=== PATIENT | male | born 1980 | race Caucasian/White ===

== ENCOUNTER 2018-09-07 06:09 | Emergency (ER) | payer OTHER ==
[~2018-09-07] VITALS: Ht 175.3 cm; Wt 95.2 kg
[~2018-09-07 06:09] MED LIST: ACETAMINOPHEN-1 EAC1 PO; CEPHALEXIN500 M1 PO; CYCLOBENZAPRINE10 MG PO; IBUPROFEN800 MG PO; NAPROSYN500 MG PO; NAPROXEN500 MG PO; NORCO 5-325 TA1 EACH PO; TRAMADOL HCL50 MG PO; TYLENOL325 MG PO
[2018-09-07] MEDS ORDERED: OMEPRAZOLE20 MG PO (09:15)
[2018-09-07] MEDS ORDERED: ONDANSETRON ODT8 MG PO (09:15)
== END 2018-09-07 09:24 | disposition home or self-care (01) ==
LOC: ED 06:09
DX: K29.70 Gastritis, unspecified, without bleeding (principal); K21.9 Gastro-esophageal reflux disease without esophagitis
CPT/HCPCS: 71046; 74177; 80053; 81001; 83690; 85025; 87502; 96361; 96374; 96375; 99284-25; J2405; J7030; Q9967

== ENCOUNTER 2018-11-10 10:34 | Emergency (ER) | payer OTHER ==
[~2018-11-10] VITALS: Ht 175.3 cm; Wt 97.5 kg
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
--- OUTSIDE RECORDS SUMMARY | ~2018-11-10 | XMS | Clinical Summary ---
Demographics + + + | Address | [address] | | | [place] [address] | + + + | Home Phone | | + + + | Preferred Language | Unknown | + + + | Marital Status | | + + + | Druze Affiliation | NRP | + + + | Race | White | + + + | Ethnic Group | Not or | + + + Author + + + | Author | [facility] | + + + | Organization | [facility] | + + + | Address | Unknown | + + + | Phone | Unavailable | + + + Support + + +---------+ + | Name | Relationship | Address | Phone | + + +---------+ + | Soledad Muñiz | ECON | , [place] | | + + +---------+ + Care Team Providers + +------+ + | Care Head Coach Name | Role | Phone | + +------+ + | Erich Morales | PP | | + +------+ + Source Comments ERICA is fully live on both [facility] and [facility] Allergies No Known Allergies Current [...] 12 Holes/100mm - | | Right: | [facility] | | | 244.12 | | [id number]: Qty: 1 on | | Foot | | | | / / | | 01/03/2012 by Thor Ho, | | | | | | | | MD | | | | | | | + +------+--------+ +--------+--------+--------+ | Screw Cortex 3.5 034mm - | | Right: | [facility] | | | 204.83 | | [id number]: Qty: 1 on | | Other | | | | 4 / / | | 01/03/2012 by Thor Ho, | | | | | | | | MD | | | | | | | + +------+--------+ +--------+--------+--------+ | Screw Cortex 2.7 Mm 36mm | | Right: | [facility] | | | 202.83 | | Self-Tapping - | | Other | | | | 6 / / | | [id number]: Qty: 1 on | | | | | | | | 01/03/2012 by Thor Ho, | | | | | | | | MD | | | | | | | + +------+--------+ +--------+--------+--------+ | Screw Cortex 2.7 Mm 40mm | | Right: | [facility] | | | 202.84 | | Self-Tapping - | | Other | | | | 0 / / | | [id number]: Qty: 1 on | | | | | | | | 01/03/2012 by Thor Ho, | | | | | | | | MD | | | | | | | + +------+--------+ +--------+--------+--------+ | Screw Cortex 2.7 Mm 50mm | | Right: | [facility] | | | 202.85 | | Self-Tapping - | | Other | | | | 0 / / | | [id number]: Qty: 1 on | | | | | | | | 01/03/2012 by Thor Ho, | | | | | | | | MD | | | | | | | + +------+--------+ +--------+--------+--------+ | Screw Cortex 2.4 X 26mm | | Right: | [facility] | | | 201.62 | | Self-Tap - [id number]: | | Foot | | | | [...] 3.5 018mm - | | Right: | [facility] | | | 204.81 | | [id number]: Qty: 1 on | | Other | | | | 8 / / | | 01/03/2012 by Thor Ho, | | | | | | | | | | | | | | | + +------+--------+ +--------+--------+--------+ | Screw Cortex 3.5 026mm - | | Right: | [facility] | | | 204.82 | | [id number]: Qty: 1 on | | Other | | | | 6 / / | | 01/03/2012 by Thor Ho, | | | | | | | | MD | | | | | | | + +------+--------+ +--------+--------+--------+ | Screw Cortex 3.5 032mm - | | Right: | [facility] | | | 204.83 | | [id number]: Qty: 1 on | | Other | | | | 2 / / | | 01/03/2012 by Thor Ho, | | | | | | | | MD | | | | | | | + +------+--------+ +--------+--------+--------+ | Screw Cortex 3.5 028mm - | | Right: | [facility] | | | 204.82 | | [id number]: Qty: 1 on | | Other | | | | 8 / | | 01/03/2012 by Thor Ho, | | | | | | | | MD | | | | | | | + +------+--------+ +--------+--------+--------+ | Screw Cortex 3.5 030mm - | | Right: | [facility] | | | 204.83 | | [id number]: Qty: 1 on | | Other | | | | 0 / / | | 01/03/2012 by Thor Ho, | | | | | | | | MD | | | | | | | + +------+--------+ +--------+--------+--------+ | Tisseel Frozen 4ml - | | Right: | [facility] | | 06/06/ | [id number] | | [id number]: Qty: 1 on | | Foot | [...] 3.5 034mm - | | Right: | [facility] | | | 204.83 | | [id number]: 01/03/2012 | | Other | | | | 4 / / | | by Thor Ho MD | | | | | | | | (Quantity not on | | | | | | | | file)Explanted: Qty: 1 | | | | | | | + +------+--------+ +--------+--------+--------+ | Screw Cortex 3.5 036mm - | | Right: | [facility] | | | 204.83 | | [id number]: 01/03/2012 | | Other | | | | 6 / / | | by Thor Ho MD | | | | | | | | (Quantity not on | | | | | | | | file)Explanted: Qty: 1 | | | | | | | + +------+--------+ +--------+--------+--------+ | Screw Cortex 2.7 20mm | | Right: | [facility] | | | 202.82 | | Self-Tapping - | | Other | | | | 0 / / | | [id number]: 01/03/2012 | | | | | | | | by Thor Ho MD | | | | | | | | (Quantity not on | | | | | | | | file)Explanted: Qty: 1 | | | | | | | + +------+--------+ +--------+--------+--------+ | Screw Cortex 2.7 Mm 26mm | | Right: | [facility] | | | 202.82 | | Self-Tapping - | | Other | | | | 6 / / | | [id number]: 01/03/2012 | | | | | | | | by Thor Ho MD | | | | | | | | (Quantity not on | | | | | | | | file)Explanted: Qty: 1 | | | | | | | + +------+--------+ +--------+--------+--------+ | Screw Cortex 2.7 Mm 34mm | | Right: | [facility] | | | 202.83 | | Self-Tapping - | | Other | | | | 4 / / | | [id number]: 01/03/2012 | | | | | | | | by Thor Ho MD | | | | | | | | (Quantity not on | | | | | | | | file)Explanted: Qty: 1 | | | | | | | + +------+--------+ +--------+--------+--------+ | Screw Cortex 3.5 018mm - | | Right: | [facility] | | | 204.81 | | [id number]: 01/03/2012 | | Other | | | [...] | | | + +--------+ +--------+-------+---------+ | RENEW[employer]ERGY [employer]ER MEDICAID | [employer] | xxxxxxxx | Medica | | | [...] | 1979 | [phone] | [place] [address] | | | eric | | | [address] | | + +--------+ +--------+ + + | RISHABH MUÑIZ | Third | Self | [birth year] | Home: | [address] | | [employer] [place] | | 1980 | [phone] | [place] [address] | | | [address] | | | [address] | | | | martha | | | | | + +--------+ +--------+ + +
[~2018-11-10 10:34] MED LIST changes: +OMEPRAZOLE20 MG PO; +ONDANSETRON ODT8 MG PO
[2018-11-10] MEDS ORDERED: NORCO 5-325 TA1 EACH PO (12:13)
== END 2018-11-10 12:40 | disposition home or self-care (01) ==
LOC: ED 10:34
DX: S29.9XXA Unspecified injury of thorax, initial encounter (principal); W50.0XXA Accidental hit or strike by another person, initial encounter; Y93.72 Activity, wrestling; Z88.7 Allergy status to serum and vaccine
CPT/HCPCS: 71046; 99283-25

== ENCOUNTER 2019-01-21 16:26 | Emergency (ER) | payer OTHER ==
[~2019-01-21] VITALS: Ht 175.3 cm; Wt 97.5 kg
[2019-01-21] MEDS ORDERED: LISINOPRIL-HCT1 EAC2 PO (16:41)
[2019-01-21] MEDS ORDERED: ESCITALOPRAM OX20 MG PO (16:42)
--- NOTE | 2019-01-22 16:10 | EKG ---
[facility] [address] [facility] [address] [place], [place] [address] Signed Sinus tachycardia Right bundle branch block Abnormal ECG No previous ECGs available Confirmed by BESSIE GALEANA DO ([id number]) on 01/22/2019 4:10:05 PM Electronically Signed By: BESSIE GALEANA DO 01/22/19 1610 PATIENT NAME: RISHABH CALVIN Electrocardiogram DATE OF : 76 PHYSICIAN: BESSIE GALEANA DO REPORT #: [id number] REPORT IS CONFIDENTIAL AND NOT TO BE RELEASED WITHOUT AUTHORIZATION
== END 2019-01-21 18:31 | disposition home or self-care (01) ==
LOC: ED 16:26
DX: R69 Illness, unspecified (principal); I10 Essential (primary) hypertension; Z88.7 Allergy status to serum and vaccine; Z79.899 Other long term (current) drug therapy
CPT/HCPCS: 71045; 80053; 83735; 84484; 85025; 93005; 93010; 96360; 99284-25; J7030

== ENCOUNTER 2019-07-17 17:43 | Emergency (ER) | payer OTHER ==
--- OUTSIDE RECORDS SUMMARY | ~2019-07-17 | XMS | Encounter Summary ---
Demographics + + + | Address | [address] | | | [place] [address] | + + + | Home Phone | | + + + | Preferred Language | Unknown | + + + | Marital Status | | + + + | Caodaism Affiliation | NRP | + + + | Race | White | + + + | Ethnic Group | Not or | + + + Author + + + | Author | [facility] | + + + | Organization | [facility] | + + + | Address | Unknown | + + + | Phone | Unavailable | + + + Support + + +---------+ + | Name | Relationship | Address | Phone | + + +---------+ + | Soledad Muñiz | ECON | , [place] | | + + +---------+ + Care Team Providers + +------+ + | Care Apprentice Name | Role | Phone | + +------+ + PCP | Unavailable | + +------+ + Reason for Visit + + + | Reason | Comments | + + + | Hand Injury | | + + + Encounter Details +--------+ + + + + | Date | Type | Department | Care Team | Description | +--------+ + + + + | 10/20/ | Emergency | [facility] Emergency | | | | 2010 | | Department [address] | | [address] | | | | | | [facility] | | | | | | [place], [place] | | | | | | [address] | | | | | | [phone] | | | +--------+ + + + + Social History + +-------+ +--------+------+ | Tobacco Use | Types | Packs/Day | Years | Date | | | | | Used | | + +-------+ +--------+------+ | Never Assessed | | | | | + +-------+ +--------+------+ + + + | Sex Assigned at | Date Recorded | | | | + + + | Not on file | | + + + + + + + | Job Start Date | Occupation | Industry | + + + + | Not on file | Not on file | Not on file | + + + + + + + + | Travel History | Travel Start | Travel End | + + + + + + | No recent travel history available. | + + documented as of this encounter Plan of Treatment Not on filedocumented as of this encounter Visit Diagnoses Not on filedocumented in this encounter"
--- OUTSIDE RECORDS SUMMARY | ~2019-07-17 | XMS | Encounter Summary ---
Demographics + + + | Address | [address] | | | [place] [address] | + + + | Home Phone | | + + + | Preferred Language | Unknown | + + + | Marital Status | | + + + | Scientology Affiliation | NRP | + + + | Race | White | + + + | Ethnic Group | Not or | + + + Author + + + | Author | [facility] | + + + | Organization | [facility] | + + + | Address | Unknown | + + + | Phone | Unavailable | + + + Support + + +---------+ + | Name | Relationship | Address | Phone | + + +---------+ + | Soledad Muñiz | ECON | , [place] | | + + +---------+ + Care Team Providers + +------+ + | Care Caustic Cresylate Shift Superintendent Name | Role | Phone | + +------+ + | No Pcp Per Patient | PCP | Unavailable | + +------+ + Reason for Visit AUTH/CERT (Routine) +--------+--------+ + + + + | Status | Reason | Specialty | Diagnoses / | Referred By | Referred To | | | | | Procedures | Contact | Contact | +--------+--------+ + + + + | Closed | | | | | | +--------+--------+ + + + + Encounter Details +--------+ + + + + | Date | Type | Department | Care Team | Description | +--------+ + + + + | 01/12/ | Anesthesia | 6A Intra Op 3181 | Savanah Hodge MD | | | 2011 | Event | [address] [facility] | [address] | | | | | [address] [facility] | [facility], | | | | | [facility] | [place] [address] | | | | | Desk Located on the | [phone] | | | | | 9th floor | | | | | | [place], [place] | [place], | | | | | [address] | [facility] [address] | | | | | | [address] | | | | | | [place], [place] | | | | | | [address] | | | | | | [phone] | | | | | | | | +--------+ + + + + Anesthesia Record + + + + + | Procedure Name | Responsible | Anesthesia Start | Anesthesia Stop Time | | | Anesthesiologist | Time | | + + + + + | SPLIT THICKNESS SKIN | Savanah Hodge MD | 01/13/12723 | 01/13/12921 | | GRAFT RIGHT THIGH | | | | | TO RIGHT FOOT (Right | | | | | Foot) | | | | + + + + + +----+---+ + + | Da | T | Event | Comment | | te | i | | | | | m | | | | | e | | | +----+---+ + + | 06 | 0 | Eq Check | Anesthesia machine checked Equipment verified | | /0 | 6 | | | | 8/ | 4 | | | | 20 | 8 | | | | 12 | | | | +----+---+ + + | | 0 | | | | | 7 | | | | | 2 | | | | | 4 | | | +----+---+ + + | | 0 | Pt. Check | Prior to anesthesia start, pt. Identified, examined, chart | | | 7 | | reviewed, PARQ held, anesthetic plan made or approved by | | | 2 | | attending anesthesiologist. NPO status confirmed as appropriate | | | 4 | | for procedure Preoperative evaluation: unchanged | +----+---+ + + | | 0 | An Start | | | | 7 | | | | | 2 | | | | | 4 | | | +----+---+ + + | | 0 | Preprocedur | Pt ID confirmed, informed consent obtained, insertion site | | | 7 | e Checklist | marked, equipment available | | | 2 | | | | | 4 | | | +----+---+ + + | | 0 | An Start | | | | 7 | Data | | | | 3 | | | | | 0 | | | +----+---+ + + | | 0 | Vitals | Monitors applied Vital signs checked | | | 7 | Checked | | | | 3 | | | | | 5 | | | +----+---+ + + | | 0 | Std. Airway | | | | 7 | Mgt. | | | | 4 | | | | | 0 | | | +----+---+ + + | | 0 | Ready | | | | 7 | | | | | 5 | | | | | 2 | | | +----+---+ + + | | 0 | Abx | | | | 7 | Administere | | | | 5 | d | | | | 2 | | | +----+---+ + + | | 0 | Incision | | | | 8 | | | | | 2 | | | | | 2 | | | +----+---+ + + | | 0 | Surgery end | | | | 9 | | | | | 1 | | | | | 1 | | | +----+---+ + + | | 0 | An Extubate | Neuromuscular function Intact. Pharynx suctioned. Patient obeys | | | 9 | | commands. Adequate pulmonary mechanics. | | | 1 | | | | | 1 | | | +----+---+ + + | | 0 | an stop | | | | 9 | data | | | | 1 | | | | | 5 | | | +----+---+ + + | | 0 | Anesthesia | | | | 9 | End | | | | 2 | | | | | 2 | | | +----+---+ + + +------+ | Meds | +------+ + + + | Name | Total | + + + | midazolam | 2 mg | + + + | propofol | 200 mg | + + + | lidocaine 2% | 40 mg | + + + | fentaNYL | 200 mcg | + + + | rocuronium | 50 mg | + + + | ceFAZolin | 1,000 mg | + + + | HYDROmorphone | 2 mg | + + + | ondansetron | 4 mg | + + + | neostigmine | 3 mg | + + + | glycopyrrolate | 0.4 mg | + + + | LR | 1,000 mL | + + + + + | Name | + + | Insp Jai | + + | Et Jai | + + | Insp Sevo | + + | Et Sevo | + + | EtN2O % | + + | Insp N2O % | + + | O2 Flow Rate (Total Liters) | + + | Air Flow rate (L/min) | + + + + | No blood administrations on file. | + + +--------+ + + + | Type | Details | Placement | Removal | +--------+ + + + | RETIRE | 01/13/12; Right Thigh Skin Graft | 01/13/12 0000 by | 01/13/12 1225 by | | D - | Donor Site; No; Right:, anterior; | France Rao, | Bebe Stinson RN | | Inc[facility] | thigh; 01/13/12; 1225 | RN | | | on | | | | +--------+ + + + | RETIRE | 01/13/12; 0555; 01/13/12; 1207; | 01/13/12 0555 by | 01/13/12 1207 by | | D - | 16; Left; Wrist; Lidocaine; No; | Mariajose Terrazas | Natalia Jacobson, | | Periph | Positive | | RN | | eral | | | | | Line | | | | +--------+ + + + | RETIRE | 01/13/12; 0858; Right Foot; Yes; | 01/13/12 0858 by | 01/13/12 1225 by | | D - | Right:, anterior; foot; 01/13/12; | France Rao, | Bebe Stinson RN | | Incisi | 1225 | RN | | | on | | | | +--------+ + + + documented in this encounter Social History + +-------+ +--------+ + | Tobacco Use | Types | Packs/Day | Years | Date | | | | | Used | | + +-------+ +--------+ + | Former Smoker | | | | Quit: 01/13/2000 | + +-------+ +--------+ + + +---+---+ + | Smokeless Tobacco: | | | Quit: | | Former User | | | 01/13/20 | | | | | 00 | + +---+---+ + + + +---------+ + | Alcohol Use | Drinks/Week | oz/Week | Comments | + + +---------+ + | No | | | monthly | + + +---------+ + + + + | Sex Assigned at [...] Visit Diagnoses Not on filedocumented in this encounter Administered Medications + +--------+ + +------+------+ | Medication Order | MAR | Action | Dose | Rate | Site | | | Action | Date | | | | + +--------+ + +------+------+ | ceFAZolin (aka ANCEF) injection | Given | 01/13/20 | 1,000 mg | | | | intravenous, INTRAPROCEDURE | | 12 7:52 | | | | | PRN, Starting 01/13/12 at 0752, | | AM PDT | | | | | Until Mon01/13/12 at 0915 | | | | | | + +--------+ + +------+------+ +---+---+ | | | +---+---+ + +-------+ +--------+---+---+ | fentaNYL citrate (PF) (aka | Given | 01/13/20 | 50 mcg | | | | SUBLIMAZE) injection | | 12 9:00 | | | | | INTRAPROCEDURE PRN, Starting Fri | | AM PDT | | | | | 6/8/12 at 0740, Until Mon01/13/12 | | | | | | | at 0915, sedation | | | | | | + +-------+ +--------+---+---+ +-------+ +---------+---+---+ | Given | 01/13/20 | 150 mcg | | | | | 12 7:40 | | | | | | AM PDT | | | | +-------+ +---------+---+---+ +---+---+ | | | +---+---+ + +-------+ +--------+---+---+ | glycopyrrolate (ml ORTIZ) | Given | 01/13/20 | 0.4 mg | | | | injection INTRAPROCEDURE PRN, | | 12 8:53 | | | | | Starting Mon01/13/12 at 0853, | | AM PDT | | | | | Until Mon01/13/12 at 0915 | | | | | | + +-------+ +--------+---+---+ +---+---+ | | | +---+---+ + +-------+ +------+---+---+ | HYDROmorphone (aka DILAUDID) | Given | 01/13/20 | 2 mg | | | | injection INTRAPROCEDURE PRN, | | 12 8:22 | | | | | Starting Mon01/13/12 at 0822, | | AM PDT | | | | | Until Mon01/13/12 at 914, | | | | | | | sedation | | | | | | + +-------+ +------+---+---+ +---+---+ | | | +---+---+ + +---------+ +----+---+---+ | lactated ringers IV | New Bag | 01/13/20 | mL | | | | INTRAPROCEDURE CONTINUOUS PRN, | | 12 8:34 | | | | | Starting 01/13/12 at 0724, | | AM PDT | | | | | Until Mon01/13/12 at 914 | | | | | | + +---------+ +----+---+---+ +---------+ +----+---+---+ | New Bag | 01/13/20 | mL | | | | | 12 7:24 | | | | | | AM PDT | | | | +---------+ +----+---+---+ +---+---+ | | | +---+---+ + +-------+ +-------+---+---+ | lidocaine (aka XYLOCAINE MPF) | Given | 01/13/20 | 40 mg | | | | 20 mg/mL (2 %) injection | | 12 7:40 | | | | | INTRAPROCEDURE PRN, Starting Fri | | AM PDT | | | | | 01/13/12 at 0740, Until 01/13/12 | | | | | | | at 0915 | | | | | | + +-------+ +-------+---+---+ +---+---+ | | | +---+---+ + +-------+ +------+---+---+ | midazolam (aka VERSED) | Given | 01/13/20 | 2 mg | | | | injection INTRAPROCEDURE PRN, | | 12 7:25 | | | | | Starting 01/13/12 at 0725, | | AM PDT | | | | | Until 01/13/12 at 0915, | | | | | | | sedation | | | | | | + +-------+ +------+---+---+ +---+---+ | | | +---+---+ + +-------+ +------+---+---+ | neostigmine (aka PROSTIGMIN) | Given | 01/13/20 | 3 mg | | | | injection intravenous, | | 12 8:53 | | | | | INTRAPROCEDURE PRN, Starting Fri | | AM PDT | | | | | 01/13/12 at 0853, Until 01/13/12 | | | | | | | at 0915 | | | | | | + +-------+ +------+---+---+ +---+---+ | | | +---+---+ + +-------+ +------+---+---+ | ondansetron (aka ZOFRAN) | Given | 01/13/20 | 4 mg | | | | injection INTRAPROCEDURE PRN, | | 12 8:34 | | | | | Starting 01/13/12 at 0834, | | AM PDT | | | | | Until 01/13/12 at 0915 | | | | | | + +-------+ +------+---+---+ +---+---+ | | | +---+---+ + +-------+ +--------+---+---+ | propofol INTRAPROCEDURE PRN, | Given | 01/13/20 | 200 mg | | | | Starting 01/13/12 at 0736, | | 12 7:36 | | | | | Until Mon01/13/12 at 0915 | | AM PDT | | | | + +-------+ +--------+---+---+ +---+---+ | | | +---+---+ + +-------+ +-------+---+---+ | rocuronium (aka ZEMURON) | Given | 01/13/20 | 50 mg | | | | injection INTRAPROCEDURE PRN, | | 12 7:40 | | | | | Starting 01/13/12 at 0740, | | AM PDT | | | | | Until Mon01/13/12 at 0915, | | | | | | | Neuromuscular block | | | | | | + +-------+ +-------+---+---+ +---+---+ | | | +---+---+ documented in this encounter"
--- OUTSIDE RECORDS SUMMARY | ~2019-07-17 | XMS | Encounter Summary ---
Demographics + + + | Address | [address] | | | [place] [address] | + + + | Home Phone | | + + + | Preferred Language | Unknown | + + + | Marital Status | | + + + | Christian Affiliation | NRP | + + + | Race | White | + + + | Ethnic Group | Not or | + + + Author + + + | Author | [facility] | + + + | Organization | [facility] | + + + | Address | Unknown | + + + | Phone | Unavailable | + + + Support + + +---------+ + | Name | Relationship | Address | Phone | + + +---------+ + | Soledad Muñiz | ECON | , [place] | | + + +---------+ + Care Team Providers + +------+ + | Care Special Needs Nanny Name | Role | Phone | + +------+ + | Erich Morales | PCP | | + +------+ + Encounter Details +--------+ + + + + | Date | Type | Department | Care Team | Description | +--------+ + + + + | 08/30/ | Abstract | Infectious | [facility]on | | | 2012 | | [facility] | [place] | | | | | [address] | | | [address] | | | | | | Mailcode: [id number] | | | | | | [facility] | | | | | | [place], [place] | | | | | | [address] | | | | | | [phone] | | | +--------+ + + + + Social History + + + +--------+ + | Tobacco Use | Types | Packs/Day | Years | Date | | | | | Used | | + + + +--------+ + | Former Smoker | Cigarettes | 0.3 | 8 | Quit: 01/13/2000 | + + + +--------+ + + +------+---+ + | Smokeless Tobacco: | Chew | | Quit: | | Former User | | | 01/13/20 | | | | | 00 | + +------+---+ + + + +---------+ + | Alcohol Use | Drinks/Week | oz/Week | Comments | + + +---------+ + | No | | 0.0 | jeanette for quit somtime | | | | | per pt. | + + +---------+ + + + [...] Not on filedocumented as of this encounter Procedures + +--------+ + + + | Procedure Name | Priori | Date/Time | Associated Diagnosis | Comments | | | ty | | | | + +--------+ + + + | C-REACTIVE PROTEIN | Routin | 08/29/2012 | | Results for this | | | e | 9:10 AM | | procedure are in the | | | | PST | | results section. | + +--------+ + + + documented in this encounter Results C-REACT PRTN (FOR INFLAMMATION) (08/29/2012 9:10 AM PST) + +-------+ + + + | Component | Value | Ref Range | Performed | Pathologist | | | | | At | Signature | + +-------+ + + + | C-REACTIVE | <5 | mg/dl | NON [facility] | | | PROTEIN | | | LAB | | + +-------+ + + + + + | Specimen | + + | Blood - Blood | + + + +---------+ + + | Performing | Address | City/State/Zipcode | Phone Number | | Organization | | | | + +---------+ + + | NON [facility] | | | | + +---------+ + + documented in this encounter Visit Diagnoses Not on filedocumented in this encounter"
--- OUTSIDE RECORDS SUMMARY | ~2019-07-17 | XMS | Encounter Summary ---
Demographics + + + | Address | [address] | | | [place] [address] | + + + | Home Phone | | + + + | Preferred Language | Unknown | + + + | Marital Status | | + + + | Jain Affiliation | NRP | + + + | Race | White | + + + | Ethnic Group | Not or | + + + Author + + + | Author | [facility] | + + + | Organization | [facility] | + + + | Address | Unknown | + + + | Phone | Unavailable | + + + Support + + +---------+ + | Name | Relationship | Address | Phone | + + +---------+ + | Soledad Muñiz | ECON | , [place] | | + + +---------+ + Care Team Providers + +------+ + | Care Payroll Auditor Name | Role | Phone | + +------+ + | Erich Morales | PCP | | + +------+ + Reason for Visit + + + | Reason | Comments | + + + | Medication | | | management | | + + + Encounter Details +--------+ + + + + | Date | Type | Department | Care Team | Description | +--------+ + + + + | 08/31/ | Patient Safety Sitter | Infectious | Hillary Harmon | | | 2012 | | [facility] | [place] | | | | | Floor [address] | | | | [address] | | | | | | Mailcode: [id number] | | | | | | [facility] | | | | | | [place], [place] | | | | | | [address] | | | | | | [phone] | | | +--------+ + + + [...]
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
--- OUTSIDE RECORDS SUMMARY | ~2019-07-17 | XMS | Encounter Summary ---
Demographics + + + | Address | [address] | | | [place] [address] | + + + | Home Phone | | + + + | Preferred Language | Unknown | + + + | Marital Status | | + + + | Orthodox Affiliation | NRP | + + + | Race | White | + + + | Ethnic Group | Not or | + + + Author + + + | Author | [facility] | + + + | Organization | [facility] | + + + | Address | Unknown | + + + | Phone | Unavailable | + + + Support + + +---------+ + | Name | Relationship | Address | Phone | + + +---------+ + | Soledad Muñiz | ECON | , [place] | | + + +---------+ + Care Team Providers + +------+ + | Care Senior Accounting Clerk Name | Role | Phone | + +------+ + | Erich Morales | PCP | | + +------+ + Encounter Details +--------+ + + + + | Date | Type | Department | Care Team | Description | +--------+ + + + + | 08/23/ | Abstract | Infectious | Hillary [facility] | | | 2012 | | [facility] | [place] | | | | | Floor [address] | [address] | | | | | | Mailcode: [id number] | | | | | | [facility] | | | | | | [place], [place] | | | | | | [address] | | | | | | [phone] | | | +--------+ + + + [...] | + +--------+ + + + | VANCOMYCIN, TROUGH | Routin | 08/22/2012 | | Results for this | | | e | | | procedure are in the | | | | | | results section. | + +--------+ + + + documented in this encounter Results VANCOMYCIN, TROUGH (08/22/2012) + +-------+ + + + | Component | Value | Ref Range | Performed | Pathologist | | | | | At | Signature | + +-------+ + + + | VANCOMYCIN, | 13.7 | ug/mL | NON [facility] | | | TROUGH | | | LAB | | + [...]
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
--- OUTSIDE RECORDS SUMMARY | ~2019-07-17 | XMS | Encounter Summary ---
Demographics + + + | Address | [address] | | | [place] [address] | + + + | Home Phone | | + + + | Preferred Language | Unknown | + + + | Marital Status | | + + + | Gnosticist Affiliation | NRP | + + + [...] Team Providers + +------+ + | Care Oral Surgery Assistant Name | Role | Phone | + +------+ + | Erich Morales | PCP | | + +------+ + Encounter Details +--------+ + + + + | Date | Type | Department | Care Team | Description | +--------+ + + + + | 08/09/ | Abstract | Infectious | [facility] | | | 2012 | | [facility] | [place] | | | | | Floor [address] | [address] | | | | | | Mailcode: [id number] | | | | | | [facility] | | | | | | [place], [place] | | | | | | [address] | | | | | | [phone] | | | +--------+ + + + [...] | + +--------+ + + + | COMPLETE METABOLIC | Routin | 08/08/2012 | | Results for this | | SET | e | | | procedure are in the | | (NA,K,CL,CO2,BUN,CRE | | | | results section. | | AT,GLUC,CA,AST,ALT,B | | | | | | ROBIN TOTAL,ALK | | | | | | PHOS,ALB,PROT TOTAL) | | | | | + +--------+ + + + documented in this encounter Results COMPLETE METABOLIC SET (NA,K,CL,CO2,BUN,CREAT,GLUC,CA,AST,ALT,BILI TOTAL,ALK PHOS,ALB,PROT TOTAL) (08/08/2012) + +-------+ + + + | Component | Value | Ref Range | Performed | Pathologist | | | | | At | Signature | + +-------+ + + + | GLUCOSE, | 99 | 65 - 110 mg/dL | NON [facility] | | | PLASMA | | | LAB | | | (LAB) | | | | | + +-------+ + + + | BUN, PLASMA | 10 | mg/dL | NON [facility] | | | (LAB) | | | LAB | | + +-------+ + + + | CREATININE | 0.81 | mg/dL | NON [facility] | | | PLASMA | | | LAB | | | (LAB) | | | | | + +-------+ + + + | TOTAL | 7.1 | g/dL | NON [facility] | | | PROTEIN, | | | LAB | | | PLASMA | | | | | | (LAB) | | | | | + +-------+ + + + | ALBUMIN, | 4.8 | g/dL | NON [facility] | | | PLASMA | | | LAB | | | (LAB) | | | | | + +-------+ + + + | CALCIUM, | 9.3 | mg/dL | NON [facility] | | | PLASMA | | | LAB | | | (LAB) | | | | | + +-------+ + + + | BILIRUBIN | 0.3 | Transcutaneous | NON [facility] | | | TOTAL | | Bilirubinometer | LAB | | + +-------+ + + + | ALK PHOS | 55 | U/L | NON [facility] | | | | | | LAB | | + +-------+ + + + | AST(SGOT) | 24 | U/L | NON [facility] | | | | | | LAB | | + +-------+ + + + | SODIUM, | 138 | mmol/L | NON [facility] | | | PLASMA | | | LAB | | | (LAB) | | | | | + +-------+ + + + | POTASSIUM, | 4.1 | mmol/L | NON [facility] | | | PLASMA | | | LAB | | | (LAB) | | | | | + +-------+ + + + | CHLORIDE, | 105 | mmol/L | NON [facility] | | | PLASMA | | | LAB | | | (LAB) | | | | | + +-------+ + + + | TOTAL CO2, | 24 | mmol/L | NON [facility] | | | PLASMA | | | LAB | | | (LAB) | | | | | + +-------+ + + + | ALT (SGPT) | 38 | U/L | NON [facility] | | | | | | LAB | | + [...]
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
--- OUTSIDE RECORDS SUMMARY | ~2019-07-17 | XMS | Encounter Summary ---
Demographics + + + | Address | [address] | | | [place] [address] | + + + | Home Phone | | + + + | Preferred Language | Unknown | + + + | Marital Status | | + + + | Oriental Orthodox Affiliation | NRP | + + + | Race | White | + + + | Ethnic Group | Not or | + + + Author + + + | Author | [facility] | + + + | Organization | [facility] | + + + | Address | Unknown | + + + | Phone | Unavailable | + + + Support + + +---------+ + | Name | Relationship | Address | Phone | + + +---------+ + | Soledad Muñiz | ECON | , [place] | | + + +---------+ + Care Team Providers + +------+ + | Care Bread Stacker Name | Role | Phone | + [...] [facility] | | | | | | [place], [place] | | | | | | [address] | | | | | | [phone] | | | +--------+ + + + [...]
--- OUTSIDE RECORDS SUMMARY | ~2019-07-17 | XMS | Encounter Summary ---
Demographics + + + | Address | [address] | | | [place] [address] | + + + | Home Phone | | + + + | Preferred Language | Unknown | + + + | Marital Status | | + + + | Christianity Affiliation | NRP | + + + | Race | White | + + + | Ethnic Group | Not or | + + + Author + + + | Author | [facility] | + + + | Organization | [facility] | + + + | Address | Unknown | + + + | Phone | Unavailable | + + + Support + + +---------+ + | Name | Relationship | Address | Phone | + + +---------+ + | Soledad Muñiz | ECON | , [place] | | + + +---------+ + Care Team Providers + +------+ + | Care Rn Hemodialysis Charge Name | Role | Phone | + +------+ + PCP | Unavailable | + +------+ + Reason for Visit + + + | Reason | Comments | + + + | Eye examination | | + + + Encounter Details +--------+---------+ + + + | Date | Type | Department | Care Team | Description | +--------+---------+ + + + | 02/21/ | Office | [facility] | | Unspecified Disorder | | 2005 | Visit | [place] | | of Choroid | | | | Photography at | | | | | | [address] | | | | | | [place] | | | | | | Mailcode: [place] | | | | | | [place] [address] | | | | | | [phone] | | | +--------+---------+ + + + [...] + + documented as of this encounter Raghavendra Roman - 02/21/2006 4:18 PM Shireen Muñiz was seen in the [facility] [place] [facility] Department today, 02/21/2006, for May. documented in this encount er Plan of Treatment Not on filedocumented as of this encounter Visit Diagnoses + + | Diagnosis | + + | Unspecified disorder of choroid | + + documented in this encounter"
--- OUTSIDE RECORDS SUMMARY | ~2019-07-17 | XMS | Encounter Summary ---
Demographics + + + | Address | [address] | | | [place] [address] | + + + | Home Phone | | + + + | Preferred Language | Unknown | + + + | Marital Status | | + + + | Amish Affiliation | NRP | + + + | Race | White | + + + | Ethnic Group | Not or | + + + Author + + + | Author | [facility] | + + + | Organization | [facility] | + + + | Address | Unknown | + + + | Phone | Unavailable | + + + Support + + +---------+ + | Name | Relationship | Address | Phone | + + +---------+ + | Soledad Muñiz | ECON | , [place] | | + + +---------+ + Care Team Providers + +------+ + | Care Epic Manager Name | Role | Phone | + +------+ + PCP | Unavailable | + +------+ + Encounter Details +--------+ + + + + | Date | Type | Department | Care Team | Description | +--------+ + + + + | 09/11/ | Results | Emergency Medicine | Bowen aHckett, | | | 1996 | Only | [address] [facility] | MD Abiodun Gamboa | | | | | [address] | [facility] | | | | | [place], [place] | Counsel[address] | | | | | [address] | [address] [place], | | | | | | [place] [address] | | | | | | [phone] | | | | | | | [...] | + +--------+ + + + | US ABDOMEN COMPLETE | Urgent | 09/11/1996 | | Results for this | | | | 9:00 AM | | procedure are in the | | | | PST | | results section. | + +--------+ + + + documented in this encounter Results US ABDOMEN COMPLETE (09/11/1996 9:00 AM PST) + + + + + + | Component | Value | Ref Range | Performed | Pathologist | | | | | At | Signature | + + + + + + | US ABDOMEN | Radiologist 1: VALE, | | | | | COMPLETE | SWATHI BRIGHT, | | | | | | RISHABH | | | | | | | | | | | | | | | | | | ABDOMINAL | | | | | | ULTRASOUND: 09/11/96 at | | | | | | 0900 hrs Dictated: | | | | | | 09/11/96 FINDINGS: The | | | | | | liver, gallbladder, | | | | | | common bile duct, | | | | | | spleen, andvisualized | | | | | | portions of the pancreas | | | | | | are unremarkable. | | | | | | Both kidneysare mildly | | | | | | echogenic. No stones, | | | | | | masses or hydronephrosis | | | | | | are presentin either | | | | | | kidney. The right | | | | | | kidney has a length of | | | | | | 11.9 cm and theleft | | | | | | kidney has a length of | | | | | | 12 cm. IMPRESSION: | | | | | | Mildly echogenic kidneys | | | | | | consistent with medical | | | | | | renal disease. | | | | | | Therest of the exam is | | | | | | unremarkable. END OF | | | | | | IMPRESSION: | | | | + + + + + + + + | Specimen | + + | | + + + +---------+ + + | Performing | Address | City/State/Zipcode | Phone Number | | Organization | | | | + +---------+ + + | [facility] | | | | | RADIOLOGY | | | | + +---------+ + + documented in this encounter Visit Diagnoses Not on filedocumented in this encounter"
--- OUTSIDE RECORDS SUMMARY | ~2019-07-17 | XMS | Encounter Summary ---
Demographics + + + | Address | [address] | | | [place] [address] | + + + | Home Phone | | + + + | Preferred Language | Unknown | + + + | Marital Status | | + + + | Mandaeism Affiliation | NRP | + + + | Race | White | + + + | Ethnic Group | Not or | + + + Author + + + | Author | [facility] | + + + | Organization | [facility] | + + + | Address | Unknown | + + + | Phone | Unavailable | + + + Support + + +---------+ + | Name | Relationship | Address | Phone | + + +---------+ + | Soledad Muñiz | ECON | , [place] | | + + +---------+ + Care Team Providers + +------+ + | Care Power Hammer Operator Name | Role | Phone | + [...] | Sindhu | Beto Gillespie MD | [address] | | | | | wound of | [address] | | | | | right foot | Richy Lopez | Mailcode: | | | | | Procedures | [facility] | [facility] | | | | | PHYS DYS | [place], [place] | for Health | | | | | OCCUPATIONAL | [address] | and Healing, | | | | | THERAPY | Phone: | Building [address], | | | | | REFERRAL | [phone] | [address] | | | | | | Fax: | [place], [place] | | | | | | [phone] | [address] | | | | | | | Phone: | | | | | | | [phone] | | | | | | | Fax: | | | | | | | [phone] | +--------+--------+ + + + + Physical [...] | | | | | PHYSICAL | [place], [place] | for Health | | | | | THERAPY | [address] | and Healing, | | | | | REFERRAL | Phone: | Building [address], | | | | | | [phone] | [address] | | | | | | Fax: | [place], [place] | | | | | | [phone] | [address] | | | | | | | Phone: | | | | | | | [phone] | | | | | | | Fax: | | | | | | | [phone] | +--------+--------+ + + + + Reason [...] + + | 07/24/ | Hospital | [facility] [address] | Thor Ho MD | | | 2011 - | Encounter | [address] | | | | | | [place], | | | | 07/28/ | | [place] [address] | | | | 2011 | | [phone] | | | +--------+ + + + [...] might be different fro m the original. [facility] DEPARTMENT OF ORTHOPAEDICS & REHABILITATION INPATIENT HOSPITAL DISCHARGE SUMMARY & INTERDISCIPLINARY INSTRUCTIONS Patient: Jaron Muñiz CSN: [id number] Admission Date: 07/24/2012 Discharge Date: 07/28/2012 Attending Physician: Thor Ho MD PCP: Erich GRADY Service: [facility] Orthopaedics & Rehabilitation Diagnoses Principal Final Diagnosis: [...] they suspect your wound is infected. Call [facility] first at [phone]. Activity Partial weight-bearing: A small amount of weight may be supported by the affected leg. You r Physician / PT will tell you the amount allowed. Weight bearing through the heel only with CAM boot on for all oob activities. Destination: Destination: Home Condition on Discharge Stable Follow-Up Appointments ORTHOPEDICS OUTPATIENT CLINIC: Follow up in 2 weeks (or as previously scheduled). Call [phone] to confirm or schedule this appointment. PHYSICAL THERAPY: If you are discharged home from the hospital and do not have in-home the rapy, you will need to begin outpatient physical therapy as soon as possible. If you have an y questions regarding this, please call [phone]. PCP: As needed for any medical concerns [...] mg Oral Tablet Comments: Reason for Stopping: [facility] Orthopaedic Service Pain Policy At the 6-week [...] and ask for the orthopaedic surgery resident urban design consultant. Additional Post-Op Instructions / What to Expect [...] feel that you will need more, call [phone] during business hours in order to get [...] has been our pleasure. Beto Bell MD [facility] [place] Department of Orthopaedics & Rehabilitation [address] [place] [address] Mail Code: OP31 [facility] [address] [email or web address] Pager: [phone] documented in this enco unter Medications at [...] provider under separate cover. Anticipated OPAT Setting: [facility] [phone] ID/OPAT Clinic follow-up: OPAT clinic visit in 1-2 weeks after discharge in conjunction wit h [facility] Ortho Service. We will call to schedule this appointment after patient is discharged . Interdisciplinary Communication: Please notify OPAT clinic 24-48 hours prior to discharge b y calling [phone] (We need anticipated discharge date & where patient is going; i.e. name, ph one, and fax for home infusion vendor, penitentiary facility, or daily outpatient infusio n center providing outpatient antibiotic therapy services.) [facility] Department of Infectious Disease Outpatient IV Antibiotic Therapy Clinic (OPAT) Pager ID: [phone] Mail Code F354 [place] [address] OPAT teaching note: Education and training for patient self management with a PICC line and extended use IV antibiotics I received an OPAT Clinic Consult from the Inpatient Infectious Diseases Service. I have re viewed the records and introduced myself to Jaron Muñiz today. I explained that I am from the OPAT (Outpatient Parenteral Antibiotic Treatment) team, an out-patient branch of [facility] Infectious Diseases team that has been [...] symptoms immediately, and if unable to contact [facility] or the [facility] ion service provider, then to present to the nearest ED. I verified that the patient has a primary care provider, and that they will follow-up with them following this hospitalization in regards to other medical issues such as chronic pain, diabetes, or high blood pressure for which we do not provide any care. I provided the patient with the [facility] welcome letter that reiterates the above teaching. I spent 25 minutes in education and training in patient self management for IV antibiotic a nd PICC line use with greater than 50% spent on counseling and/or coordination of care. [facility] DEPARTMENT: IDC INFECT DIS CONSULT - [id number] Place of Service: Inpatient Date of Service: 07/27/2012 CSN: [id number] Suggested Modifier: [facility] Suggested Level of Care: 37756- Subsequent hosp care, 25 min Beto Moses [...] with the above documentation. Thor Ho MD Emergency Operator Orthopaedic Trauma [facility] Department of Orthopaedics Beto Moses MD - [...] discharge: Pending clinical course. Beto Bell MD [facility] Department of Orthopaedics & Rehabilitation [address] [place] [address] Mail Code: OP31 [place] [address] [email or web address] Pager: [phone] documented in this en counter Plan of [...] Thor Ho MD - 08/11/2012 8:45 AM [facility] ORTHOPAEDIC OPERATIVE REPORT | | Jaron Muñiz [id number] | | | | Date: 07/24/2012 | | | | Attending Surgeon: Thor Ho M.D. | | | | Computed Tomography Technician(s): Harinder Abad M.D. | | | | [...] to follow up, as he was in [place], [place], and reports a 2- to 3-month [...] in the Orthopedic Trauma Clinic at the [facility] | | location in 2 weeks' time [...] | [facility] | [address] | [place] [address] | | | SERVICES, CORE | PARK [...] | + + + + + | [facility] | [address] | [place] [address] | | | SERVICES, CORE | PARK [...] + + + + + | [facility] | [address] | [place] [address] | | | SERVICES, CORE | GARRET [...] + | [facility] - | [address] | [place] [address] | | | [facility] | | | | + + + + + X-RAY PORTABLE CHEST 1 VIEW (07/27/2012 9:37 AM PST) + + + + + + | Component | Value | Ref Range | Performed | Pathologist | | | | | At | Signature | + + + + + + | X-RAY | STUDY:VT CHEST 1 VIEW | | | | [...] | + + + + + | [facility] | [address] | [place] [address] | | | ILIANA, CHRISTINA | PARK [...] [facility] | [address] | [place] [address] | | | SERVICES, CORE | PARK [...] [facility] | [address] | [place] [address] | | | SERVICES, CORE | PARK [...] + + + + + | [facility] | [address] | [place] [address] | | | SERVICES, CHRISTINA | GARRET [...] | | | | | signed / Ashutosh | | | | | | Paul [...] | + + + + + | [facility] - | [address] | [place] [address] | | | [place] | | | | + + + [...] | | | RESULT | | | [facility] - | | | | Final GRAM [...] + + + + | [facility] - | [address] | [place] [address] | | | [place] | | | [...] + | [facility] - | [address] | [place] [address] | | | [place] | | | [...] | + + + + + | [facility] - | [address] | [place] [address] | | | [place] | | | | + + + [...] + | [facility] - | [address] | [place] [address] | | | [place] | | | | + + + [...] [facility] | [address] | [place] [address] | | | SERVICES, | [address] [...] [facility] | [address] | [place] [address] | | | SERVICES, | [address] [...] [facility] | [address] | [place] [address] | | | SERVICES, CORE | PARK [...] + + + + + | [facility] | [address] | [place] [address] | | | SERVICES, CHRISTINA | GARRET [...]
--- OUTSIDE RECORDS SUMMARY | ~2019-07-17 | XMS | Encounter Summary ---
Demographics + + + | Address | [address] | | | [place] [address] | + + + | Home Phone | | + + + | Preferred Language | Unknown | + + + | Marital Status | | + + + | Religion Affiliation | NRP | + + + | Race | White | + + + | Ethnic Group | Not or | + + + Author + + + | Author | [facility] | + + + | Organization | [facility] | + + + | Address | Unknown | + + + | Phone | Unavailable | + + + Support + + +---------+ + | Name | Relationship | Address | Phone | + + +---------+ + | Soledad Muñiz | ECON | , [place] | | + + +---------+ + Care Team Providers + +------+ + | Care Black Leather Buffer Name | Role | Phone | + +------+ + | Erich Morales | PCP | | + +------+ + Encounter Details +--------+ + + + + | Date | Type | Department | Care Team | Description | +--------+ + + + + | 08/29/ | Abstract | Infectious | Hillary Harmon | | | 2012 | | Diseases at [facility] | [place] | | | | | Floor [address] | | [address] | | | | | | Mailcode: [id number] | | | | | | [facility] | | | | | | [place], [place] | | | | | | [address] | | | | | | [phone] | | | +--------+ + + + [...] + | CBC, WITH | Routin | 08/29/2012 | | Results for this | | DIFFERENTIAL | e | 9:10 AM | | procedure are in the | | | | PST | | results section. | + +--------+ + + + | COMPLETE METABOLIC | Routin | 08/29/2012 | | Results for this | | SET | e | 9:10 AM | | procedure are in the | | (NA,K,CL,CO2,BUN,CRE | | PST | | results section. | | AT,GLUC,CA,AST,ALT,B | | | | | | ROBIN TOTAL,ALK | | | | | | PHOS,ALB,PROT TOTAL) | | | | | + +--------+ + + + documented in this encounter Results CBC, WITH DIFFERENTIAL (08/29/2012 9:10 AM PST) + +-------+ + + + | Component | Value | Ref Range | Performed | Pathologist | | | | | At | Signature | + +-------+ + + + | WHITE CELL | 2.2 | K/cu mm | NON [facility] | | | COUNT | | | LAB | | + +-------+ + + + | RED CELL | 4.62 | M/cu mm | NON [facility] | | | COUNT | | | LAB | | + +-------+ + + + | HEMOGLOBIN | 14.3 | 13.5 - 17.5 | NON [facility] | | | | | g/dL | LAB | | + +-------+ + + + | HEMATOCRIT | 42.3 | % | NON [facility] | | | | | | LAB | | + +-------+ + + + | MCV | 91.7 | fL | NON [facility] | | | | | | LAB | | + +-------+ + + + | MCH | 31 | pg | NON [facility] | | | | | | LAB | | + +-------+ + + + | MCHC | 34 | g/dL | NON [facility] | | | | | | LAB | | + +-------+ + + + | PLATELET | 202 | K/cu mm | NON [facility] | | | COUNT | | | LAB | | + +-------+ + + + | NEUTROPHIL | 24 | % | NON [facility] | | | % | | | LAB | | + +-------+ + + + | LYMPHOCYTE | 46 | % | NON [facility] | | | % | | | LAB | | + +-------+ + + + | MONOCYTE % | 21 | % | NON [facility] | | | | | | LAB | | + +-------+ + + + | EOS % | 7 | % | [facility] | | | | | | LAB | | + +-------+ + + + | BASO % | 1 | % | NON [facility] | | | | | | LAB | | + +-------+ + + + | RDW | 12.8 | % | NON [facility] | | | | | | LAB | | + +-------+ + + + | MPV | | fL | NON [facility] | | | | | | LAB | | + +-------+ + + + | NEUTROPHIL | | K/cu mm | NON [facility] | | | # | | | LAB | | + +-------+ + + + | LYMPHOCYTE | | K/cu mm | NON [facility] | | | # | | | LAB | | + +-------+ + + + | MONOCYTE # | | K/cu mm | NON [facility] | | | | | | LAB | | + +-------+ + + + | EOS # | | K/cu mm | NON [facility] | | | | | | LAB | | + +-------+ + + + | BASO # | | | NON [facility] | | | | | | LAB | | + +-------+ + + + | ESR (SED | 2 | | NON [facility] | | | RATE) | | | LAB | | + +-------+ + + + + + | Specimen | + + | Blood - Blood | + + + +---------+ + + | Performing | Address | City/State/Zipcode | Phone Number | | Organization | | | | + +---------+ + + | NON [facility] | | | | + +---------+ + + COMPLETE METABOLIC SET (NA,K,CL,CO2,BUN,CREAT,GLUC,CA,AST,ALT,BILI TOTAL,ALK PHOS,ALB,PROT TOTAL) (08/29/2012 9:10 AM PST) + +-------+ + + + | Component | Value | Ref Range | Performed | Pathologist | | | | | At | Signature | + +-------+ + + + | GLUCOSE, | 86 | 65 - 110 mg/dL | NON [facility] | | | PLASMA | | | LAB | | | (LAB) | | | | | + +-------+ + + + | BUN, PLASMA | 12 | mg/dL | NON [facility] | | | (LAB) | | | LAB | | + +-------+ + + + | CREATININE | 0.88 | mg/dL | NON [facility] | | | PLASMA | | | LAB | | | (LAB) | | | | | + +-------+ + + + | TOTAL | 7.2 | g/dL | NON [facility] | | | PROTEIN, | | | LAB | | | PLASMA | | | | | | (LAB) | | | | | + +-------+ + + + | ALBUMIN, | 5 | g/dL | NON [facility] | | | PLASMA | | | LAB | | | (LAB) | | | | | + +-------+ + + + | CALCIUM, | 9.8 | mg/dL | NON [facility] | | | PLASMA | | | LAB | | | (LAB) | | | | | + +-------+ + + + | BILIRUBIN | 0.4 | Transcutaneous | NON [facility] | | | TOTAL | | Bilirubinometer | LAB | | + +-------+ + + + | ALK PHOS | 56 | U/L | NON [facility] | | | | | | LAB | | + +-------+ + + + | AST(SGOT) | 28 | U/L | NON [facility] | | | | | | LAB | | + +-------+ + + + | SODIUM, | 139 | mmol/L | NON [facility] | | | PLASMA | | | LAB | | | (LAB) | | | | | + +-------+ + + + | POTASSIUM, | 4.4 | mmol/L | NON [facility] | | | PLASMA | | | LAB | | | (LAB) | | | | | + +-------+ + + + | CHLORIDE, | 103 | mmol/L | NON [facility] | | | PLASMA | | | LAB | | | (LAB) | | | | | + +-------+ + + + | TOTAL CO2, | 29 | mmol/L | NON [facility] | | | PLASMA | | | LAB | | | (LAB) | | | | | + +-------+ + + + | ALT (SGPT) | 45 | U/L | NON [facility] | | | | | | LAB | | + +-------+ + + + | VANCOMYCIN, | 11.4 | ug/mL | NON [facility] | | [...]
--- OUTSIDE RECORDS SUMMARY | ~2019-07-17 | XMS | Encounter Summary ---
Demographics + + + | Address | [address] | | | [place] [address] | + + + | Home Phone | | + + + | Preferred Language | Unknown | + + + | Marital Status | | + + + | Taoism Affiliation | NRP | + + + | Race | White | + + + | Ethnic Group | Not or | + + + Author + + + | Author | [facility] | + + + | Organization | [facility] | + + + | Address | Unknown | + + + | Phone | Unavailable | + + + Support + + +---------+ + | Name | Relationship | Address | Phone | + + +---------+ + | Soledad Muñiz | ECON | , [place] | | + + +---------+ + Care Team Providers + +------+ + | Care Back Stayer Name | Role | Phone | + [...] [facility]ilion | | | | | | [place], [place] | | | | | | [address] | | | | | | [phone] | | | +--------+ + + + [...]
--- OUTSIDE RECORDS SUMMARY | ~2019-07-17 | XMS | Encounter Summary ---
Demographics + + + | Address | [address] | | | [place] [address] | + + + | Home Phone | | + + + | Preferred Language | Unknown | + + + | Marital Status | | + + + | Lutheran Affiliation | NRP | + + + | Race | White | + + + | Ethnic Group | Not or | + + + Author + + + | Author | [facility] | + + + | Organization | [facility] | + + + | Address | Unknown | + + + | Phone | Unavailable | + + + Support + + +---------+ + | Name | Relationship | Address | Phone | + + +---------+ + | Soledad Muñiz | ECON | , [place] | | + + +---------+ + Care Team Providers + +------+ + | Care Trimming Machine Operator Name | Role | Phone | + +------+ + | Tsering Mcdonald | PCP | | + +------+ + Reason for Visit + + + | Reason | Comments | + + + | Comprehensive eye | For about 4 months noticed vision was really bad in the left eye. | | examination | Has RP and has had cataract surgery, OU. | + + + Encounter Details +--------+---------+ + + + | Date | Type | Department | Care Team | Description | +--------+---------+ + + + | 01/26/ | Office | [facility] | Serina Tracy MD | After-cataract, | | 2010 | Visit | [place]/Ophthalmol | | obscuring vision | | | | ogy at [facility] [address] | | (Primary Dx) | | | | [address] Mailcode: | | | | | | [facility] | | | | | | Health and [facility], | | | | | | [facility] | | | | | | Floor [place], [place] | | | | | | [address] | | | | | | [phone] | | | +--------+---------+ + + + [...] Comments | + + +---------+ + | Not Asked | | | | + + +---------+ + + + [...] documented as of this encounter Progress Notes Gary Ball MD - 02/20/2011 11:31 AM PDTAttending Physician Statement: I reviewed chart notes under general supervision of resident, but did not personally examine this patient. Cosigning only. GARY BALL MD Director, Comprehensive Ophthalmology [facility] [place] [address] [facility], [address] [place] [address] Fax [phone] Lauren Solorzano - 01/06 11:12 AM PDT COMPREHENSIVE OPHTHALMOLOGY PROGRESS NOTE 01/26/2011 HPI: 30 y.o. year old male from [place] : Patient presents with: Comprehensive eye examination - For about 4 months noticed vision was really bad in the l eft eye. 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 Last seen by Dr. Dodson in 2005. Had yag capsulotomy OD on that visit. Moved to [place] af terwards. Has noticed gradually decreasing vision OS. Tobacco use: reports that he has quit smoking. He has quit using smokeless tobacco. [facility] Care Provider: SAM Pat Past ocular history: Ref Silas Englnadconcapri, OD, [place] Pseudophakia, PCO, right eye RP and Choreoretinal Scar--FA 02/09 Family ocular history: Family History: Allergies: has no known allergies. Medications: Current outpatient prescriptions Medication Sig cephALEXin (KEFLEX) 500 mg Oral Capsule Take 500 mg by mouth every six hours. HYDROcodone-acetaminophen (VICODIN) 5-500 mg Oral Tablet Take 1 Tab by mouth every six hours as needed. Not to exceed 8 tablets per any 24 hour period. 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 Reviewed systems for: fever, wt. loss, ENT, cardiovascular, pulmonary, GI, urinary, neurolo gic, endocrine, bleeding/blood disorders, AIDS/HIV, cancer/tumors, arthritis - all were nega tive except as noted above. EXAMINATION: Pain score: Visual acuity CC SC PH (SC/CC) Near cc Near sc Right eye 20/30 NI, Left eye 20/100 NI, Current glasses sphere cylinder axis VA Right eye +1.50 +0.25 82 20/30 Left eye +1.25 +0.75 20/100 Near add +2.50 / +2.50 Type: Bifocal. Comments: Manifest sphere cylinder axis VA Right eye MR AR +2.00 Sphere Left eye MR AR -0.25 +1.25 156 Near add MR / , KERATOMETRY: K1 @ K2 @ Right eye 45.75 40 46.50 130 Left eye 45.25 17 46.00 107 Pupils: PERRL Dark Bright React APD Right eye Left eye Comments: EOM: Full; Comments: CVF: OD: OS: Comments: BAT on medium: OD: OS: Comments: IOP CCT(pachy) Amsler Color OD OS IOP method: Drops for dilation: ILAUREN, performed, reviewed or revised the above history, medications, allergies, as well as performed elements noted in the Base Ophthalmology Exam, such as visual acuity, pupils, EOMs, CVF and IOP. Neuro/Psych: Mood/Affect: External Exam Right Eye Left Eye Normal Normal Comments: Slit Lamp Exam Right Eye Left Eye Lids Normal Normal Conjunctiva White and quiet White and quiet Cornea All layers clear All layers clear AC Deep and quiet Deep and quiet Iris Round and reactive Round and reactive Lens Centered posterior chamber intraocular lens with open posterior capsule Centered poste rior chamber intraocular lens with 3+ PCO Comments: Fundus Exam Right Eye Left Eye Vitreous Normal Normal Disc drusen and waxy pallor drusen and waxy pallor. C/D 0.1 0.1 Macula Normal no CME Normal no CME Vessels Normal Normal Periphery atrophy 360 and spicules. Inferiorly there is a finger like retinal elevation with corresponding scarred surface (stable compare d to prior description in 2005.) No retinal detachment. atrophy 360 spicules Comments: See [facility] Op[facility]mology Exam Module for additional exam information Fundus photograph report Shana Dodson Md 03/09/06 Stereo photographs of right fundus are reviewed. The quality of the pictures is good. The disc size is small. The cup appears to small but i t is ill-defined and the disc is diffusely pale. The peripapillary area shows nothing of not e. The maculae appears flat, featureless. The retinal blood vessels appear attenuated and th e background fundus is mottled and diffusely atrophic looking. There is a raised scarified a ppearing lesion inferotemporally. 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 in [place] , he did note this on his examination though didn't mention it in the referral letter he sen t to me. Retinitis pigmentosa. Impression: 1) Pseudophakic OU. S/p yag capsulotomy OD, doing well. OS with 3+ visually significant PCO. Very symptomatic with blurry vision and best corrected visual acuity of 20/100 OS. Co uld benefit from yag capsulotomy 2. Retinitis pigmentosa OU with disc drusen and constricted visual calderon when last checke d 3. Chorioretinal lesion OS - History of bungee cord injury of that part of eye, likely 2/2 to that. Prior Bscan Done by Dr. Dodson and studies agree with trauma, not neoplasm. Plan: Offered visit with Dr. Dotson or Klaus for RP, however pt declined. Tried to get approval for yag capsulotomy OS today, however need prior authorization. Since patient travels from the [facility] and it is difficult to get to [place] for h is appointments, will arrange for follow up in [facility] and hopefully pt can hav e yag capsulotomy same day. Serina Tracy MD Ophthalmology Resident [facility] Physician: Serina Tracy MD, 01/26/2011 documented in this encoun ter Plan of Treatment Not on filedocumented as of this encounter Visit Diagnoses + + | Diagnosis | + + | After-cataract, obscuring vision - Primary | + + documented in this encounter"
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
--- OUTSIDE RECORDS SUMMARY | ~2019-07-17 | XMS | Encounter Summary ---
Demographics + + + | Address | [address] | | | [place] [address] | + + + | Home Phone | | + + + | Preferred Language | Unknown | + + + | Marital Status | | + + + | Hinduism Affiliation | NRP | + + + | Race | White | + + + | Ethnic Group | Not or | + + + Author + + + | Author | [facility] | + + + | Organization | [facility] | + + + | Address | Unknown | + + + | Phone | Unavailable | + + + Support + + +---------+ + | Name | Relationship | Address | Phone | + + +---------+ + | Soledad Muñiz | ECON | , [place] | | + + +---------+ + Care Team Providers + +------+ + | Care Gas Station Cashier Name | Role | Phone | + [...] | +--------+ + + + + | 08/08/ | Labor Arbitrator | Infectious | Hillary Harmon | | | 2012 | | [facility] at [facility] | [place] | | | | | Floor [address] | | | | | [address] | | | | | | Mailcode: [id number] | | | | | | Phys[facility] [place] | | | | | | [place], [place] | | | | | | [address] | | | | | | [phone] | | | +--------+ + + + [...]
--- OUTSIDE RECORDS SUMMARY | ~2019-07-17 | XMS | Encounter Summary ---
Demographics + + + | Address | [address] | | | [place] [address] | + + + | Home Phone | | + + + | Preferred Language | Unknown | + + + | Marital Status | | + + + | Confucianism Affiliation | NRP | + + + [...] Team Providers + +------+ + | Care Collections Representative Name | Role | Phone | + [...] | | | | | | [address] [place], [place] | | | | | | [address] | | | | | | [phone] | | | +--------+ + + + [...] perfume, lotions or powder. Remove any nail st helenian from at least one fingernail. Do not [...] or walk. Surgery Check in Locations Admitting [facility] Surgery Check in Time: Someone from your surgeon's office or [facility] will provide you with information regarding your [...] it is after office hours, call the [facility] centralized traffic control operator at [phone] and ask them to page your doc tor. documented in this encounter Plan of Treatment Not on filedocumented as of this encounter Visit Diagnoses Not on filedocumented in this encounter"
--- OUTSIDE RECORDS SUMMARY | ~2019-07-17 | XMS | Encounter Summary ---
Demographics + + + | Address | [address] | | | [place] [address] | + + + | Home Phone | | + + + | Preferred Language | Unknown | + + + | Marital Status | | + + + | Orthodoxy Affiliation | NRP | + + + | Race | White | + + + | Ethnic Group | Not or | + + + Author + + + | Author | [facility] | + + + | Organization | [facility] | + + + | Address | Unknown | + + + | Phone | Unavailable | + + + Support + + +---------+ + | Name | Relationship | Address | Phone | + + +---------+ + | Soledad Muñiz | ECON | , [place] | | + + +---------+ + Care Team Providers + +------+ + | Care Corporate Director Of Human Resources Name | Role | Phone | + +------+ + PCP | Unavailable | + +------+ + Encounter Details +--------+ + + + + | Date | Type | Department | Care Team | Description | +--------+ + + + + | 05/25/ | Documentati | [facility] | Shana Dodson MD | | | 2005 | on | [address] | | | | | | [place] Mailcode: | | | | | | [place], [place] | | | | | | [address] | | | +--------+ + + + [...]
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
--- OUTSIDE RECORDS SUMMARY | ~2019-07-17 | XMS | Encounter Summary ---
Demographics + + + | Address | [address] | | | [place] [address] | + + + | Home Phone | | + + + | Preferred Language | Unknown | + + + | Marital Status | | + + + | Buddhism Affiliation | NRP | + + + | Race | White | + + + | Ethnic Group | Not or | + + + Author + + + | Author | [facility] | + + + | Organization | [facility] | + + + | Address | Unknown | + + + | Phone | Unavailable | + + + Support + + +---------+ + | Name | Relationship | Address | Phone | + + +---------+ + | Soledad Muñiz | ECON | , [place] | | + + +---------+ + Care Team Providers + +------+ + | Care Manager Proposal Name | Role | Phone | + [...] + + + + | 08/08/ | Retail Training Manager | Infectious | Hillary Harmon | | | 2012 | | [facility] | [place] | | | | | Floor [address] | | | | | | [address] | | | | | | Mailcode: [address] | | | | | | [facility] [place] | | | | | | [place], [place] | | | | | | [address] | | | | | | [phone] | | | +--------+ + + + [...]
--- OUTSIDE RECORDS SUMMARY | ~2019-07-17 | XMS | Encounter Summary ---
Demographics + + + | Address | [address] | | | [place] [address] | + + + | Home Phone | | + + + | Preferred Language | Unknown | + + + | Marital Status | | + + + | Lutheran Affiliation | NRP | + + + | Race | White | + + + | Ethnic Group | Not or | + + + Author + + + | Author | [facility] | + + + | Organization | [facility] | + + + | Address | Unknown | + + + | Phone | Unavailable | + + + Support + + +---------+ + | Name | Relationship | Address | Phone | + + +---------+ + | Soledad Muñiz | ECON | , [place] | | + + +---------+ + Care Team Providers + +------+ + | Care Ventilating Engineer Name | Role | Phone | + +------+ + | Erich Morales | PCP | | + +------+ + Reason for Visit AUTH/CERT +--------+--------+ + [...] + + + + | 07/24/ | Anesthesia | [address] Op [address] | Allyson Flores MD | | | 2011 | Event | [address] | [address] | | | | | [address] [facility] | [facility] | | | | | [facility] | [place] [address] | | | | | Desk Located on the | [phone] | | | | | 9th floor | | | | | | [place] [employer], [place] | | | | | | [address] | | | +--------+ + + + [...] 2 mg | + + + | fentaNYL | 500 mcg | + + + | propofol | 190 mg | + + + | pip-tazo 3.375g | 3.375 g | + + + | ceFAZolin | 1,000 mg | + + + | LR | 800 mL | + + + + + | Name | + + | Insp Sevo | + + | Et Sevo | + + | Insp N2O % [...] | Discharge | | on | questions.); 162 (Automatic | | | | | cleanup [...] ceFAZolin (aka ANCEF) injection | Given | 07/24/20 | 1,000 mg | | | | intravenous, INTRAPROCEDURE | | 12 3:13 | | | | | PRN, Starting 07/24/12 at | | PM PST | | | | | 1513, Until Mon07/24/12 at 1612 | | | | | | + +--------+ + +------+------+ +---+---+ | | | +---+---+ + +-------+ +--------+---+---+ | fentaNYL citrate (PF) (aka | Given | 1820 | 50 mcg | | | | SUBLIMAZE) injection | | 12 3:54 | | | | | INTRAPROCEDURE PRN, Starting Tue | | PM PST | | | | | 1812 at 1421, Until Tue | | | | | | | 12/18/12 at 1612, sedation | | | | | | + +-------+ +--------+---+---+ +-------+ +--------+---+---+ | Given | 1218/20 | 50 mcg | | | | | 12 3:52 | | | | | | PM PST | | | | +-------+ +--------+---+---+ | Given | 1218/20 | 50 mcg | | | | | 12 3:43 | | | | | | PM PST | | | | +-------+ +--------+---+---+ +---+---+ | | | +---+---+ + + + +----+---+---+ | lactated ringers IV | given by | 07/24/20 | mL | | | | INTRAPROCEDURE CONTINUOUS PRN, | | 12 4:00 | | | | | Starting 07/24/12 at 1410, | anesthes | PM PST | | | | | Until e 07/24/12 at 1612 | iology | | | | | + + + +----+---+---+ + + +----+---+---+ | given by anesthesiology | 07/24/20 | mL | | | | | 12 2:45 | | | | | | PM PST | | | | + + +----+---+---+ | New Bag | 07/24/20 | mL | | | | | 12 2:10 | | | | | | PM PST | | | | + + +----+---+---+ +---+---+ | | | +---+---+ + +-------+ +------+---+---+ | midazolam (aka VERSED) | Given | 07/24/20 | 2 mg | | | | injection INTRAPROCEDURE PRN, | | 12 2:12 | | | | | Starting 07/24/12 at 1412, | | PM PST | | | | | Until 07/24/12 at 1612, | | | | | | | sedation | | | | | | + +-------+ +------+---+---+ +---+---+ | | | +---+---+ + +-------+ +---------+---+---+ | piperacillin-tazobactam (aka | Given | 07/24/20 | 3.375 g | | | | ZOSYN) IV intravenous, | | 12 3:13 | | | | | INTRAPROCEDURE PRN, Starting Tue | | PM PST | | | | | 07/24/12 at 1513, Until Tue | | | | | | | 07/24/12 at 1612 | | | | | | + +-------+ +---------+---+---+ +---+---+ | | | +---+---+ + +-------+ +--------+---+---+ | propofol INTRAPROCEDURE PRN, | Given | 07/24/20 | 190 mg | | | | Starting 07/24/12 at 1423, | | 12 2:23 | | | | | Until 07/24/12 at 1612 | | PM PST | | | | + +-------+ +--------+---+---+ +---+---+ | | | +---+---+ documented in this encounter"
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
--- OUTSIDE RECORDS SUMMARY | ~2019-07-17 | XMS | Encounter Summary ---
Demographics + + + | Address | [address] | | | [place] [address] | + + + | Home Phone | | + + + | Preferred Language | Unknown | + + + | Marital Status | | + + + | Mormonism Affiliation | NRP | + + + | Race | White | + + + | Ethnic Group | Not or | + + + Author + + + | Author | [facility] | + + + | Organization | [facility] | + + + | Address | Unknown | + + + | Phone | Unavailable | + + + Support + + +---------+ + | Name | Relationship | Address | Phone | + + +---------+ + | Soledad Muñiz | ECON | , [place] | | + + +---------+ + Care Team Providers + +------+ + | Care Emergency Department Aide Name | Role | Phone | + [...] wound | Dept Hrc | MD [address] | | | | | of foot | [address] | | | | | except | [place] | [facility] | | | | | toe(s) | Rd [facility] | Rd [place], | | | | | alone, | Hospital | [place] | | | | | without | [place], [place] | [address] | | | | | mention of | [address] | | | | | | complication | Phone: | | | | | | Procedures | [phone] | | | | | | NC SPLIT | | | | | | [...] of | | 2011 | Visit | [facility] [address] | [place] [address] | right foot (Primary | | | | [address] | [address] | Dx) | | | | [address] | [place] [address] | | | | | [place], [place] | [phone] | | | | | [address] | | | | | | [phone] | | | +--------+---------+ + + + [...] might be different fro m the original. [facility] Date of Surgery: 01/13/2012 [...] crutches Skin graft looks healthy, 100% viable. Collins removed today. Donor site healthy. Foot- Incision [...] continue to wean PRN. Just moved to [place]. December e transferring pain management to local [...] out of [facility] AT [address] [place] [address] [phone] Orders Placed This Encounter X-RAY FOOT 3 [...] joint. | | | | | | Collins arenoted in | | | | | [...] | | + +---------+ + + | [facility] DEPARTMENT OF | | | | [...]
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
--- OUTSIDE RECORDS SUMMARY | ~2019-07-17 | XMS | Encounter Summary ---
Demographics + + + | Address | [address] | | | [place] [address] | + + + | Home Phone | | + + + | Preferred Language | Unknown | + + + | Marital Status | | + + + | Episcopalian Affiliation | NRP | + + + | Race | White | + + + | Ethnic Group | Not or | + + + Author + + + | Author | [facility] | + + + | Organization | [facility] | + + + | Address | Unknown | + + + | Phone | Unavailable | + + + Support + + +---------+ + | Name | Relationship | Address | Phone | + + +---------+ + | Soledad Muñiz | ECON | , [place] | | + + +---------+ + Care Team Providers + +------+ + | Care Breaker Operator Name | Role | Phone | + +------+ + | Erich Morales | PCP | | + +------+ + Reason for Visit +--------+ + | Reason | Comments | +--------+ + | Pain | | +--------+ + Encounter Details +--------+ + + + + | Date | Type | Department | Care Team | Description | +--------+ + + + + | 11/29/ | Telephone | Orthopaedics at | Thor Ho MD | Pain | | 2012 | | [facility] [address] | | | | | | [address] | | | | | | [address] | | | | | | [place], [place] | | | | | | [address] | | | | | | [phone] | | | +--------+ + + + [...]
--- OUTSIDE RECORDS SUMMARY | ~2019-07-17 | XMS | Encounter Summary ---
Demographics + + + | Address | [address] | | | [place] [address] | + + + | Home Phone | | + + + | Preferred Language | Unknown | + + + | Marital Status | | + + + | Buddhist Affiliation | NRP | + + + | Race | White | + + + | Ethnic Group | Not or | + + + Author + + + | Author | [facility] | + + + | Organization | [facility] | + + + | Address | Unknown | + + + | Phone | Unavailable | + + + Support + + +---------+ + | Name | Relationship | Address | Phone | + + +---------+ + | Soledad Muñiz | ECON | , [place] | | + + +---------+ + Care Team Providers + +------+ + | Care Core Driller Name | Role | Phone | + [...] | +--------+ + + + + | 08/03/ | Tour Manager | Infectious | [facility] | | | 2011 | | [facility] | [place] | | | | | Floor [address] | | | | | [address] | | | | | | Mailcode: [id number] | | | | | | Phys[facility] | | | | | | [place], [place] | | | | | | [address] | | | | | | [phone] | | | +--------+ + + + [...]
--- OUTSIDE RECORDS SUMMARY | ~2019-07-17 | XMS | Encounter Summary ---
Demographics + + + | Address | [address] | | | [place] [address] | + + + | Home Phone | | + + + | Preferred Language | Unknown | + + + | Marital Status | | + + + | Mandaeism Affiliation | NRP | + + + | Race | White | + + + | Ethnic Group | Not or | + + + Author + + + | Author | [facility] | + + + | Organization | [facility] | + + + | Address | Unknown | + + + | Phone | Unavailable | + + + Support + + +---------+ + | Name | Relationship | Address | Phone | + + +---------+ + | Soledad Muñiz | ECON | , [place] | | + + +---------+ + Care Team Providers + +------+ + | Care Office Support Associate Name | Role | Phone | + [...] | Pain | | 2012 | | [facility] [address] | | | | | | [address] | | | | | | [facility] [address] | | | | | | [place], [place] | | | | | | [address] | | | | | | [phone] | | | +--------+ + + + [...]
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
--- OUTSIDE RECORDS SUMMARY | ~2019-07-17 | XMS | Encounter Summary ---
Demographics + + + | Address | [address] | | | [place] [address] | + + + | Home Phone | | + + + | Preferred Language | Unknown | + + + | Marital Status | | + + + | Hoahaoism Affiliation | NRP | + + + [...] Team Providers + +------+ + | Care Automobile Insurance Claim Examiner Name | Role | Phone | + [...] Pavilion | | | | | | [place], [place] | | | | | | [address] | | | | | | [phone] | | | +--------+ + + + [...] + | CBC, WITH | Routin | 08/22/2012 | | Results for this | | DIFFERENTIAL | e | | | procedure are in the | | | | | | results section. | + +--------+ + + + | COMPLETE METABOLIC | Routin | 08/22/2012 | | Results [...] in this encounter Results CBC, WITH DIFFERENTIAL (08/22/2012) + +-------+ + + + | Component | Value | Ref Range | Performed | Pathologist | | | | | At | Signature | + +-------+ + + + | WHITE CELL | 3.4 | K/cu mm | NON [facility] | | | COUNT | | | LAB | | + +-------+ + + + | RED CELL | 5.02 | M/cu mm | NON [facility] | | | COUNT | | | LAB | | + +-------+ + + + | HEMOGLOBIN | 15.4 | 13.5 - 17.5 | NON [facility] | | | | | g/dL | LAB | | + +-------+ + + + | HEMATOCRIT | 46.5 | % | NON [facility] | | | | | | LAB | | + +-------+ + + + | MCV | 92.5 | fL | NON [facility] | | | | | | LAB | | + +-------+ + + + | MCH | 31 | pg | NON [facility] | | | | | | LAB | | + +-------+ + + + | MCHC | 33 | g/dL | NON [facility] | | | | | | LAB | | + +-------+ + + + | PLATELET | 243 | K/cu mm | NON [facility] | | | COUNT | | | LAB | | + +-------+ + + + | NEUTROPHIL | 45.3 | % | NON [facility] | | | % | | | LAB | | + +-------+ + + + | LYMPHOCYTE | 32.1 | % | NON [facility] | | | % | | | LAB | | + +-------+ + + + | MONOCYTE % | 15 | % | NON [facility] | | | | | | LAB | | + +-------+ + + + | EOS % | 6.3 | % | NON [facility] | | | | | | LAB | | + +-------+ + + + | BASO % | 1.3 | % | NON [facility] | | | | | | LAB | | + +-------+ + + + | RDW | 12.7 | % | NON [facility] | | [...] + + + | ESR (SED | 5 | | NON [facility] | | | [...] COMPLETE METABOLIC SET (NA,K,CL,CO2,BUN,CREAT,GLUC,CA,AST,ALT,BILI TOTAL,ALK PHOS,ALB,PROT TOTAL) (08/22/2012) + +-------+ + + + | Component | Value | Ref Range | Performed | Pathologist | | | | | At | Signature | + +-------+ + + + | GLUCOSE, | 83 | 65 - 110 mg/dL | NON [facility] | | | PLASMA | | | LAB | | | (LAB) | | | | | + +-------+ + + + | BUN, PLASMA | 12 | mg/dL | NON [facility] | | | (LAB) | | | LAB | | + +-------+ + + + | CREATININE | 0.92 | mg/dL | NON [facility] | | | PLASMA | | | LAB | | | (LAB) | | | | | + +-------+ + + + | TOTAL | 7.8 | g/dL | NON [facility] | | | PROTEIN, | | | LAB | | | PLASMA | | | | | | (LAB) | | | | | + +-------+ + + + | ALBUMIN, | 5.2 | g/dL | NON [facility] | | | PLASMA | | | LAB | | | (LAB) | | | | | + +-------+ + + + | CALCIUM, | 9.5 | mg/dL | NON [facility] | | | PLASMA | | | LAB | | | (LAB) | | | | | + +-------+ + + + | BILIRUBIN | 0.5 | Transcutaneous | NON [facility] | | | TOTAL | | Bilirubinometer | LAB | | + +-------+ + + + | ALK PHOS | 60 | U/L | NON [facility] | | | | | | LAB | | + +-------+ + + + | AST(SGOT) | 45 | U/L | NON [facility] | | | | | | LAB | | + +-------+ + + + | SODIUM, | 138 | mmol/L | NON [facility] | | | PLASMA | | | LAB | | | (LAB) | | | | | + +-------+ + + + | POTASSIUM, | 4.6 | mmol/L | NON [facility] | | | PLASMA | | | LAB | | | (LAB) | | | | | + +-------+ + + + | CHLORIDE, | 103 | mmol/L | NON [facility] | | | PLASMA | | | LAB | | | (LAB) | | | | | + +-------+ + + + | TOTAL CO2, | 27 | mmol/L | NON [facility] | | | PLASMA | | | LAB | | | (LAB) | | | | | + +-------+ + + + | ALT (SGPT) | 55 | U/L | NON [facility] [...]
--- OUTSIDE RECORDS SUMMARY | ~2019-07-17 | XMS | Encounter Summary ---
Demographics + + + | Address | [address] | | | [place] [address] | + + + | Home Phone | | + + + | Preferred Language | Unknown | + + + | Marital Status | | + + + | Judaism Affiliation | NRP | + + + | Race | White | + + + | Ethnic Group | Not or | + + + Author + + + | Author | [facility] | + + + | Organization | [facility] | + + + | Address | Unknown | + + + | Phone | Unavailable | + + + Support + + +---------+ + | Name | Relationship | Address | Phone | + + +---------+ + | Soledad Muñiz | ECON | , [place] | | + + +---------+ + Care Team Providers + +------+ + | Care Archivist Political History Name | Role | Phone | + +------+ + | Erich Morales | PCP | | + +------+ + Encounter Details +--------+ + + + + | Date | Type | Department | Care Team | Description | +--------+ + + + + | 12/07/ | Telephone | Orthopaedics at | Thor Ho MD | | | 2012 | | [facility] [address] | | | | | | [address] | | | | | | [address] | | | | | | [place] | | | | | | [address] | | | | | | [phone] | | | +--------+ + + + [...]
--- OUTSIDE RECORDS SUMMARY | ~2019-07-17 | XMS | Clinical Summary ---
Demographics + + + | Address | [address] | | | [place] [address] | + + + | Home Phone | | + + + | Preferred Language | Unknown | + + + | Marital Status | | + + + | Methodist Affiliation | NRP | + + + | Race | White | + + + | Ethnic Group | Not or | + + + Author + + + | Author | [facility] | + + + | Organization | [facility] | + + + | Address | Unknown | + + + | Phone | Unavailable | + + + Support + + +---------+ + | Name | Relationship | Address | Phone | + + +---------+ + | Soledad Muñiz | ECON | , [place] | | + + +---------+ + Care Team Providers + +------+ + | Care Capacitor Repairer Name | Role | Phone | + +------+ + | Erich Morales | PCP | | + +------+ + Source Comments ERICA is fully live on both [facility] and [facility] Allergies No Known Allergies Medications + + + +---------+------+------+-------+ | Medication | Sig | Dispensed | Refills | Star | End | Statu | | | | | | t | Date | s | | | | | | Date | | | + + + +---------+------+------+-------+ | acetaminophen 650 | Take 650 mg by mouth | 100 Tab | 2 | 05/3 | | Activ | | mg Oral | every six hours. | | | 1/20 | | e | | TabletIndications: | Indications: Pain | | | 12 | | | | pain | | | | | | | + + + +---------+------+------+-------+ | multivitamin Oral | Take 1 Cap by mouth | | 0 | 12/2 | | Activ | | [...] mouth | 40 Tab | 0 | 2 | | Activ | | Oral | four times daily as | | | 01/24 | | e | | tabletIndications: | needed for | | | 13 | | | | post-operative | nausea/vomiting. | | | | | | | nausea and vomiting | Indications: | | | | | | | | Post-Operative | | | | | | | | Nausea and Vomiting | | | | | | + + + +---------+------+------+-------+ Active Problems + + + | Problem | Noted Date | + + + | Osteomyelitis of ankle and foot | 12/05/2012 | + + + | [...] recent travel history available. | + + Last Filed Vital Signs + + + + + | Vital Sign | Reading | Time Taken | Comments | + + + + + | Blood Pressure | 121/80 | 09/21/2012 10:17 AM | | | | | PST | | + + + + + | Pulse | 64 | 09/21/2012 10:17 AM | | | | | PST | | + + + + + | Temperature | 36.8 C (98.2 F) | 12/05/2012 10:05 AM | | | | | PDT | | + + + + + | Respiratory Rate | 16 | 07/28/2012 8:32 AM | | | | | PST | | + + + + + | Oxygen Saturation | 97% | 09/21/2012 10:17 AM | | | | | PST | | + + + + + | Inhaled Oxygen | - | - | | | Concentration | | | | + + + + + | Weight | 79.4 kg (175 lb) | 12/05/2012 10:05 AM | | | | | PDT | | + + + + + | Height | 175.3 cm (5' 9") | 12/05/2012 10:05 AM | | | | | PDT | | + + + + + | Body Mass Index | 25.84 | 12/05/2012 10:05 AM | | | | | PDT | | + + + + + Plan of Treatment + + + + + | Health Maintenance | Due Date | Last Done | Comments | + + + + + | Influenza (Flu) | | | | | vaccination (#1) | 9 | | | + + + + + | Pneumococcal | Aged Out | | No longer eligible | | vaccination | | | based on patient's | | | | | age to complete this | | | | | topic | + + + + + Implants + +------+--------+ +--------+--------+--------+ | Implanted | Type | Area | Manufacture | Device | Shelf | Model | | | | | r | | Expira | / | | | | | | Identi | tion | Serial | | | | | | fier | Date | / Lot | + +------+--------+ +--------+--------+--------+ | Plate 2.7mm 12 Holes/100mm - | | Right: | [employer] [facility] | | | 244.12 | | [id number]: Qty: 1 on | | Foot | | | | / / | | 01/03/2012 by Thor Ho, | | | | | | | | MD at [facility] REV LOC | | | | | | | + +------+--------+ +--------+--------+--------+ | Screw Cortex 3.5 034mm - | | Right: | [facility] | | | 204.83 | | [id number]: Qty: 1 on | | Other | | | | 4 / / | | 01/03/2012 by Thor Ho, | | | | | | | | MD at [facility] INPATIENT REV LOC | | | | | | | + +------+--------+ +--------+--------+--------+ + + | Description:RIGHT MIDFOOT | + + + +---+--------+ +---+---+--------+ | Screw Cortex 2.7 Mm 36mm | | Right: | [employer] [facility] | | | 202.83 | | Self-Tapping - | | Other | | | | 6 / / | | [id number]: Qty: 1 on | | | | | | | | 01/03/2012 by Thor Ho, | | | | | | | | MD at [facility] INPATIENT REV LOC | | | | | | | + +---+--------+ +---+---+--------+ + + | Description:right midfoot | + + + +---+--------+ +---+---+--------+ | Screw Cortex 2.7 Mm 40mm | | Right: | [facility] | | | 202.84 | | Self-Tapping - | | Other | | | | 0 / / | | [id number]: Qty: 1 on | | | | | | | | 01/03/2012 by Thor Ho, | | | | | | | | MD at [facility] REV LOC | | | | | | | + +---+--------+ +---+---+--------+ + + | Description:right midfoot | + + + +---+--------+ +---+---+--------+ | Screw Cortex 2.7 Mm 50mm | | Right: | [facility] | | | 202.85 | | Self-Tapping - | | Other | | | | 0 / / | | [id number]: Qty: 1 on | | | | | | | | 01/03/2012 by Thor Ho, | | | | | | | | MD at [facility] INPATIENT REV LOC | | | | | | | + +---+--------+ +---+---+--------+ + + | Description:right midfoot | + + + +---+--------+ +---+--------+--------+ | Screw Cortex 2.4 X 26mm | | Right: | [facility] | | | 201.62 | | Self-Tap - [id number]: | | Foot | | | | 6 / / | | Qty: 1 on 01/03/2012 by | | | | | | | | Thor Ho MD at [facility] | | | | | | | | INPATIENT REV LOC | | | | | | | + +---+--------+ +---+--------+--------+ | Stimultim Powell 5mlImplanted: | | Right: | | | 07/06/ | 600-00 | | Qty: 1 on 01/03/2012 by | | Foot | | | 2012 | 5 / | | Thor Ho MD at [facility] | | | | | | /06/17 | | INPATIENT REV LOC | | | | | | -H130/ | | | | | | | | 131 | + +---+--------+ +---+--------+--------+ + + | Description:[employer] | | COMPANY | + + + +---+--------+ +---+---+--------+ | Screw Cortex 3.5 018mm - | | Right: | [facility] | | | 204.81 | | [id number]: Qty: 1 on | | Other | | | | 8 / / | | 01/03/2012 by Thor Ho, | | | | | | | | at [facility] REV LOC | | | | | | | + +---+--------+ +---+---+--------+ + + | Description:HIREN MIDFOOT | + + + +---+--------+ +---+---+--------+ | Screw Cortex 3.5 026mm - | | Right: | [facility] | | | 204.82 | | [id number]: Qty: 1 on | | Other | | | | 6 / / | | 01/03/2012 by Thor oH, | | | | | | | | MD at [facility] REV LOC | | | | | | | + +---+--------+ +---+---+--------+ + + | Description:RIGHT MIDFOOT | + + + +---+--------+ +---+---+--------+ | Screw Cortex 3.5 032mm - | | Right: | [facility] | | | 204.83 | | [id number]: Qty: 1 on | | Other | | | | 2 / / | | 01/03/2012 by Thor Ho, | | | | | | | | MD at [facility] REV LOC | | | | | | | + +---+--------+ +---+---+--------+ + + | Description:RIGHT MIDFOOT | + + + +---+--------+ +---+---+--------+ | Screw Cortex 3.5 028mm - | | Right: | [employer] | | | 204.82 | | [id number]: Qty: 1 on | | Other | | | | 8 / / | | 01/03/2012 by Thor Ho, | | | | | | | | MD at [facility] REV LOC | | | | | | | + +---+--------+ +---+---+--------+ + + | Description:RIGHT MIDFOOT | + + + +---+--------+ +---+---+--------+ | Screw Cortex 3.5 030mm - | | Right: | [facility] | | | 204.83 | | [id number]: Qty: 1 on | | Other | | | | 0 / / | | 01/03/2012 by Thor Ho, | | | | | | | | MD at [facility] REV LOC | | | | | | | + +---+--------+ +---+---+--------+ + + | Description:RIGHT MIDFOOT | + + + +---+--------+ +---+--------+--------+ | Tisseel Frozen 4ml - | | Right: | [facility] | | 06/06/ | [id number] | | [id number]: Qty: 1 on | | Foot | [facility]ALTH[facility]ARE | | 2012 | 2 / | | 01/13/2012 by Thor Ho, | | | | | | /VND4L | | at [facility] INPATIENT REV LOC | | | | | | 082 | + +---+--------+ +---+--------+--------+ | StimulanImplanted: Qty: 1 on | | Right: | | | 03/06/ | 600-01 | | 07/24/2012 by Benjamín Abad | | | 2013 | 0 / | | MD Harinder at [facility] INPATIENT | | | | | | /02/15 | | REV LOC | | | | | | -H147 | + +---+--------+ +---+--------+--------+ + +------+--------+ +--------+--------+--------+ | Explanted | Type | Area | Manufacture | Device | Shelf | Model | | | | | r | | Expira | / | | | | | | Identi | tion | Serial | | | | | | fier | Date | / Lot | + +------+--------+ +--------+--------+--------+ | Screw Cortex 3.5 034mm - | | Right: | [employer] [facility] | | | 204.83 | | [id number]: 01/03/2012 | | Other | | | | 4 / / | | by Thor Ho MD | | | | | | | | (Quantity not on | | | | | | | | file)Explanted: Qty: 1 at | | | | | | | | [facility] INPATIENT REV LOC | | | | | | | + +------+--------+ +--------+--------+--------+ + + | Description:RIGHT MIDFOOT | + + + +---+--------+ +---+---+--------+ | Screw Cortex 3.5 036mm - | | Right: | [facility] | | | 204.83 | | [id number]: 01/03/2012 | | Other | | | | 6 / / | | by Thor Ho MD | | | | | | | | (Quantity not on | | | | | | | | file)Explanted: Qty: 1 at | | | | | | | | [facility] INPATIENT REV LOC | | | | | | | + +---+--------+ +---+---+--------+ + + | Description:RIGHT MIDFOOT | + + + +---+--------+ +---+---+--------+ | Screw Cortex 2.7 20mm | | Right: | [facility] | | | 202.82 | | Self-Tapping - | | Other | | | | 0 / / | | [id number]: 01/03/2012 | | | | | | | | by Thor Ho MD | | | | | | | | (Quantity not on | | | | | | | | file)Explanted: Qty: 1 at | | | | | | | | [facility] INPATIENT REV LOC | | | | | | | + +---+--------+ +---+---+--------+ + + | Description:RIGHT MIDFOOT | + + + +---+--------+ +---+---+--------+ | Screw Cortex 2.7 Mm 26mm | | Right: | [facility] | | | 202.82 | | Self-Tapping - | | Other | | | | 6 / / | | [id number]: 01/03/2012 | | | | | | | | by Thor Ho MD | | | | | | | | (Quantity not on | | | | | | | | file)Explanted: Qty: 1 at | | | | | | | | [facility] INPATIENT REV LOC | | | | | | | + +---+--------+ +---+---+--------+ + + | Description:RIGHT MIDFOOT | + + + +---+--------+ +---+---+--------+ | Screw Cortex 2.7 Mm 34mm | | Right: | [employer] [facility] | | | 202.83 | | Self-Tapping - | | Other | | | | 4 / / | | [id number]: 01/03/2012 | | | | | | | | by Thor Ho MD | | | | | | | | (Quantity not on | | | | | | | | file)Explanted: Qty: 1 at | | | | | | | | [facility] INPATIENT REV LOC | | | | | | | + +---+--------+ +---+---+--------+ + + | Description:right midfoot | + + + +---+--------+ +---+---+--------+ | Screw Cortex 3.5 018mm - | | Right: | [employer] [facility] | | | 204.81 | | [id number]: 01/03/2012 | | Other | | | | 8 / / | | by Thor Ho MD | | | | | | | | (Quantity not on | | | | | | | | file)Explanted: Qty: 1 at | | | | | | | | [facility] INPATIENT REV LOC | | | | | | | + +---+--------+ +---+---+--------+ + + | Description:RIGHT MIDFOOT | + + Results Not on filefrom Last 3 Months Insurance + +--------+ +--------+-------+---------+--------+ | Payer | Benefi | Subscriber | Effect | Phone | Address | Type | | | t Plan | ID | brandon | | | | | | / | | Dates | | | | | | Group | | | | | | + +--------+ +--------+-------+---------+--------+ | FITNESS SUPERVISOR MEDICAID | FITNESS SUPERVISOR | xxxxxxxx | | | | Medica | | | [place] | | 012-Pr | | | id | | | [place] | | esent | | | | + +--------+ +--------+-------+---------+--------+ + +--------+ +--------+ + + | Guarantor Name | Accoun | Relation to | Date | Phone | Billing Address | | | t Type | Patient | of | | | | | | | | | | + +--------+ +--------+ + + | Jaron Muñiz | Person | Self | [birth year] | al/Fam | | 1979 | | [place] [address] | | | eric | | | 1 (Home) | | + +--------+ +--------+ + + | Jaron Muñiz | Third | Self | [birth year] | [address] | | | Republican | | 1979 | | [place] [address] | | | Liabil | | | 1 (Home) | | | | ity | | | | | + +--------+ +--------+ + + Advance Directives + + + + + | Type | Date Recorded | Patient | Explanation | | | | Cloth Baler | | + + + + + | Advance | | | | | Directives and | | | | | Living Will | | | | + + + + + | Power of | | | | | Cable Engineer Outside Plant | | | | + + + + + + + + + + | Code Status | Date | Date | Comments | | | Activated | Inactivated | | + + + + + | Full Code | 07/24/2012 | 07/28/2012 | | | | 7:20 PM | 3:55 PM | | + + + + + + + + +---+ | | | | | + + + +---+ | Full Code | 07/24/2012 | 07/24/2012 | | | | 11:50 AM | 7:20 PM | | + + + +---+ + + + +---+ | | | | | + + + +---+ | Full Code | 01/13/2012 | 01/13/2012 | | | | 5:54 AM | 6:26 PM | | + + + +---+ + + + +---+ | | | | | + + + +---+ | Full Code | 01/02/2012 | 01/05/2012 | | | | 5:30 PM | 10:47 PM | | + + + +---+
--- OUTSIDE RECORDS SUMMARY | ~2019-07-17 | XMS | Encounter Summary ---
Demographics + + + | Address | [address] | | | [place] [address] | + + + | Home Phone [...] + + + | Author | [facility] | + + + | Organization | [facility] | + + + | Address | Unknown | + + + | Phone | Unavailable | + + + Support + + +---------+ + | Name | Relationship | Address | Phone | + + +---------+ + | Soledad Muñiz | ECON | , [place] | | + + +---------+ + Care Team Providers + +------+ + | Care Yard Pipe Grader Name | Role | Phone | + [...] Disorder | | 2005 | Visit | [place] | | of Choroid | | | | Photography at | | | | | | [address] | | | | | | [place] | | | | | | Mailcode: [place] | | | | | | [place] [address] | | | | | | [phone] | | | +--------+---------+ + + + [...] as of this encounter Raghavendra Roman - 02/22/2006 12:45 PM Shireen Muñiz was seen in the [facility] today, 02/22/2006, for fundus photography ([place]). documented in this encount er Plan of Treatment Not on filedocumented as of this encounter Visit Diagnoses + + | Diagnosis | + + | Unspecified disorder of choroid | + + documented in this encounter"
--- OUTSIDE RECORDS SUMMARY | ~2019-07-17 | XMS | Encounter Summary ---
Demographics + + + | Address | [address] | | | [place] [address] | + + + | Home Phone | | + + + | Preferred Language | Unknown | + + + | Marital Status | | + + + | Evangelical Affiliation | NRP | + + + | Race | White | + + + | Ethnic Group | Not or | + + + Author + + + | Author | [facility] | + + + | Organization | [facility] | + + + | Address | Unknown | + + + | Phone | Unavailable | + + + Support + + +---------+ + | Name | Relationship | Address | Phone | + + +---------+ + | Soledad Muñiz | ECON | , [place] | | + + +---------+ + Care Team Providers + +------+ + | Care Scrap Hooker Name | Role | Phone | + +------+ + | Erich Morales | PCP | | + +------+ + Reason for Visit + + + | Reason | Comments | + + + | Refill Encounters | | + + + Encounter Details +--------+ + + + + | Date | Type | Department | Care Team | Description | +--------+ + + + + | 08/24/ | Telephone | Orthopaedics at | Thor Ho MD | Refill Encounters | | 2012 | | [facility] [address] | | | | | | [address] [address] | | | | | | [facility] [address] | | | | | | [place] | | | | | | [phone] | | | | | | [phone] | | | +--------+ + + + [...]
--- OUTSIDE RECORDS SUMMARY | ~2019-07-17 | XMS | Encounter Summary ---
Demographics + + + | Address | [address] | | | [place] [address] | + + + | Home Phone | | + + + | Preferred Language | Unknown | + + + | Marital Status | | + + + | Congregation Affiliation | NRP | + + + [...] Team Providers + +------+ + | Care Ostomy Care Nurse Name | Role | Phone | + +------+ + PCP | Unavailable | + +------+ + Encounter Details +--------+ + + + + | Date | Type | Department | Care Team | Description | +--------+ + + + + | 09/11/ | Results | Registration [id number] | | | | 1996 | Only | [address] | | | | | | [address] Mailcode: [id number] | | | | | | [place], [place] | | | | | | [address] | | | | | | [phone] | | | +--------+ + + + [...] + +--------+ + + + | CBC TESTS 2 | Routin | 09/11/1996 | | Results for this | | | e | 8:06 AM | | procedure are in the | | | | PST | | results section. | + +--------+ + + + | CHEMISTRY TESTS 4 | Routin | 09/11/1996 | | Results for this | | | e | 6:40 AM | | procedure are in the | | | | PST | | results section. | + +--------+ + + + | CHEMISTRY TESTS 4 | Routin | 09/11/1996 | | Results for this | | | e | 4:45 AM | | procedure are in the | | | | PST | | results section. | + +--------+ + + + | URINALYSIS TESTS | Routin | 09/11/1996 | | Results for this | | | e | 2:30 AM | | procedure are in the | | | | PST | | results section. | + +--------+ + + + | MICROBIOLOGY TESTS 1 | Routin | 09/11/1996 | | Results for this | | | e | 2:07 AM | | procedure are in the | | | | PST | | results section. | + +--------+ + + + | CHEMISTRY TESTS 4 | Routin | 09/11/1996 | | Results for this | | | e | 12:40 AM | | procedure are in the | | | | PST | | results section. | + +--------+ + + + | CBC TESTS 2 | Routin | 09/11/1996 | | Results for this | | | e | 12:40 AM | | procedure are in the | | | | PST | | results section. | + +--------+ + + + documented in this encounter Results CBC TESTS 2 (09/11/1996 8:06 AM PST) + + + + + + | Component | Value | Ref Range | Performed | Pathologist | | | | | At | Signature | + + + + + + | SEDIMENTATI | 9. | MM/HR | | | | ON RATE | | | | | + + + + + + + + | Specimen | + + | | + + + + + + + | Performing | Address | City/State/Zipcode | Phone Number | | Organization | | | | + + + + + | [facility] | [address] | [place] [address] | | | PATHOLOGY | [address] | | | + + + + + CHEMISTRY TESTS 4 (09/11/1996 6:40 AM PST) + + + + + + | Component | Value | Ref Range | Performed | Pathologist | | | | | At | Signature | + + + + + + | SODIUM, | 138. | mmol/l | | | | PLASMA | | | | | | (LAB) | | | | | + + + + + + | POTASSIUM, | 3.8 | mmol/l | | | | PLASMA | | | | | | (LAB) | | | | | + + + + + + | CHLORIDE, | 108. | mmol/l | | | | PLASMA | | | | | | (LAB) | | | | | + + + + + + | TOTAL CO2, | 24. | mmol/l | | | | PLASMA | | | | | | (LAB) | | | | | + + + + + + | BUN, PLASMA | 18. | mg/dL | | | | (LAB) | | | | | + + + + + + | CREATININE | 2. (H) | mg/dL | | | | PLASMA | | | | | | (LAB) | | | | | + + + + + + | CALCIUM, | 8.6 | mg/dL | | | | PLASMA | | | | | | (LAB) | | | | | + + + + + + | PHOSPHORUS, | 3.9 | mg/dL | | | | PLASMA | | | | | | (LAB) | | | | | + + + + + + | TOTAL | 5.8 (L) | GM/DL | | | | PROTEIN, | | | | | | PLASMA | | | | | | (LAB) | | | | | + + + + + + + + | Specimen | + + | | + + + + + + + | Performing | Address | City/State/Zipcode | Phone Number | | Organization | | | | + + + + + | [facility] | [address] | [place] [address] | | | PATHOLOGY | [address] | | | + + + + + CHEMISTRY TESTS 4 (09/11/1996 4:45 AM PST) + + + + + + | Component | Value | Ref Range | Performed | Pathologist | | | | | At | Signature | + + + + + + | LIPASE | 10. | U/L | | | | (LAB) | | | | | + + + + + + + + | Specimen | + + | | + + + + + + + | Performing | Address | City/State/Zipcode | Phone Number | | Organization | | | | + + + + + | [facility] | [address] | [place] [address] | | | PATHOLOGY | [address] | | | + + + + + URINALYSIS TESTS (09/11/1996 2:30 AM PST) + + + + + + | Component | Value | Ref Range | Performed | Pathologist | | | | | At | Signature | + + + + + + | COLOR(UR) | STRAW | | | | + + + + + + | APPEARANCE | CLEAR | | | | + + + + + + | GLUCOSE(UR) | NEG | mg/dL | | | + + + + + + | BILIRUBIN | NEG | mg/dL | | | + + + + + + | KETONES | TRACE | mg/dL | | | + + + + + + | SPECIFIC | 1.005 | mg/dL | | | | GRAVITY | | | | | + + + + + + | BLOOD | TRACE | mg/dL | | | + + + + + + | PH(UR) | 5.5 | mg/dL | | | + + + + + + | PROTEIN(LAB | 100. | mg/dL | | | | ) | | | | | + + + + + + | UROBILINOGE | 0.2 | IGNACIO UNITS | | | | N | | | | | + + + + + + | NITRITES | NEG | IGNACIO UNITS | | | + + + + + + | LEUKOCYTE | NEG | IGNACIO UNITS | | | | ESTERASE | | | | | + + + + + + | WHITE CELLS | 0-1 | /HPF | | | + + + + + + | RED CELLS | NONE | /HPF | | | + + + + + + | NON-SQUAMOU | NONE | /HPF | | | | S EPITH | | | | | + + + + + + | SQUAMOUS | NONE | /HPF | | | | EPITHELIAL | | | | | + + + + + + | BACTERIA | NONE | /HPF | | | + + + + + + | MUCOUS | NONE | /HPF | | | + + + + + + | HYALINE | NONE | /LPF | | | | CASTS | | | | | + + + + + + | GRANULAR | NONE | /LPF | | | | CASTS | | | | | + + + + + + | CELLULAR | NONE | /LPF | | | | CASTS | | | | | + + + + + + + + | Specimen | + + | | + + + + + + + | Performing | Address | City/State/Zipcode | Phone Number | | Organization | | | | + + + + + | [facility] | [address] | [place] [address] | | | PATHOLOGY | [address] | | | + + + + + MICROBIOLOGY TESTS 1 (09/11/1996 2:07 AM PST) + + + + + + | Component | Value | Ref Range | Performed | Pathologist | | | | | At | Signature | + + + + + + | CULTURE | Diagnosis | | | | | RESULT | NOT INDICATEDTest | | | | | | Ordered URINE | | | | | | CULTURE, ROUTINEOrdering | | | | | | Loc ERSpec Set | | | | | | Up Date 09/11Spec Set | | | | | | Up Time 02:29Source | | | | | | Body Site NOT | | | | | | INDICATEDReport Status | | | | | | FINALCulture | | | | | | Result NO GROWTH | | | | | | (<1000 COL/ML) IN | | | | | | 18-24HRDate Of Final Re | | | | | | [id number] | | | | + + + + + + + + | Specimen | + + | | + + + + + + + | Performing | Address | City/State/Zipcode | Phone Number | | Organization | | | | + + + + + | [facility] | [address] | [place] [address] | | | PATHOLOGY | [address] | | | + + + + + CBC TESTS 2 (09/11/1996 12:40 AM PST) + + + + + + | Component | Value | Ref Range | Performed | Pathologist | | | | | At | Signature | + + + + + + | WHITE CELL | 11.6 (H) | K/CU MM | | | | COUNT | | | | | + + + + + + | RED CELL | 4.85 | M/CU MM | | | | COUNT | | | | | + + + + + + | HEMOGLOBIN | 15.4 | GM/DL | | | + + + + + + | HEMATOCRIT | 43.5 | % | | | + + + + + + | MCV | 89.5 | FL | | | + + + + + + | MCH | 31.7 | PG | | | + + + + + + | MCHC | 35.4 (H) | GM/DL | | | + + + + + + | RDW | 12.2 | % | | | + + + + + + | PLATELET | 174. | K/CU MM | | | | COUNT | | | | | + + + + + + | MPV | 7.8 | FL | | | + + + + + + | NEUTROPHIL | 82. (H) | % | | | | % | | | | | + + + + + + | LYMPHOCYTE | 8. (L) | % | | | | % | | | | | + + + + + + | MONOCYTE % | 9. (H) | % | | | + + + + + + | EOS % | 1. | % | | | + + + + + + | BASO % | 1. | % | | | + + + + + + | NEUTROPHIL | 9.5 (H) | K/CU MM | | | | # | | | | | + + + + + + | LYMPHOCYTE | 0.9 (L) | K/CU MM | | | | # | | | | | + + + + + + | MONOCYTE # | 1. (H) | K/CU MM | | | + + + + + + | EOS # | 0.1 | K/CU MM | | | + + + + + + | BASO # | 0.1 | K/CU MM | | | + + + + + + + + | Specimen | + + | | + + + + + + + | Performing | Address | City/State/Zipcode | Phone Number | | Organization | | | | + + + + + | [facility] | [address] | [place] [address] | | | PATHOLOGY | [address] | | | + + + + + CHEMISTRY TESTS 4 (09/11/1996 12:40 AM PST) + + + + + + | Component | Value | Ref Range | Performed | Pathologist | | | | | At | Signature | + + + + + + | SODIUM, | 138. | mmol/l | | | | PLASMA | | | | | | (LAB) | | | | | + + + + + + | POTASSIUM, | 4. | mmol/l | | | | PLASMA | | | | | | (LAB) | | | | | + + + + + + | CHLORIDE, | 105. | mmol/l | | | | PLASMA | | | | | | (LAB) | | | | | + + + + + + | TOTAL CO2, | 24. | mmol/l | | | | PLASMA | | | | | | (LAB) | | | | | + + + + + + | BUN, PLASMA | 20. | mg/dL | | | | (LAB) | | | | | + + + + + + | CREATININE | 1.9 (H) | mg/dL | | | | PLASMA | | | | | | (LAB) | | | | | + + + + + + | GLUCOSE, | 86. | mg/dL | | | | PLASMA | | | | | | (LAB) | | | | | + + + + + + | CALCIUM, | 9.5 | mg/dL | | | | PLASMA | | | | | | (LAB) | | | | | + + + + + + | PHOSPHORUS, | 3.9 | mg/dL | | | | PLASMA | | | | | | (LAB) | | | | | + + + + + + | AST(SGOT) | 17. | U/L | | | + + + + + + | ALK PHOS | 84. | U/L | | | + + + + + + | BILIRUBIN | 0.1 | mg/dL | | | | DIRECT | | | | | + + + + + + | BILIRUBIN | 0.9 | mg/dL | | | | TOTAL | | | | | + + + + + + | TOTAL | 7. | GM/DL | | | | PROTEIN, | | | | | | PLASMA | | | | | | (LAB) | | | | | + + + + + + | ALBUMIN, | 4.5 | GM/DL | | | | PLASMA | | | | | | (LAB) | | | | | + + + + + + | AMYLASE,BLESSING | 23. (L) | U/L | | | | SMA | | | | | + + + + + + | LIPASE | 13. | U/L | | | | (LAB) | | | | | + + + + + + | CK | 96. | U/L | | | + + + + + + + + | Specimen | + + | | + + + + + + + | Performing | Address | City/State/Zipcode | Phone Number | | Organization | | | | + + + + + | [facility] | [address] | [place] [address] | | | PATHOLOGY | [address] | | | + + + + + documented in this encounter Visit Diagnoses Not on filedocumented in this encounter"
--- OUTSIDE RECORDS SUMMARY | ~2019-07-17 | XMS | Encounter Summary ---
Demographics + + + | Address | [address] | | | [place] [address] | + + + | Home Phone | | + + + | Preferred Language | Unknown | + + + | Marital Status | | + + + | Sabianist Affiliation | NRP | + + + [...] Team Providers + +------+ + | Care Feeder Switchboard Operator Name | Role | Phone | + +------+ + | Erich Morales | PCP | | + +------+ + Encounter Details +--------+ + + + + | Date | Type | Department | Care Team | Description | +--------+ + + + + | 08/03/ | Abstract | Infectious | [facility]on | | | 2011 | | [facility] | [place] | | | | | Floor [address] | | | | [address] | | | | | | Mailcode: [id number] | | | | | | [facility] | | | | | | [place], [place] | | | | | | [address] | | | | | | [phone] | | | +--------+ + + + [...] + | CBC, WITH | Routin | 08/01/2012 | | Results for this | | DIFFERENTIAL | e | | | procedure are in the | | | | | | results section. | + +--------+ + + + | COMPLETE METABOLIC | Routin | 08/01/2012 | | Results for this | | SET | e | | | procedure are in the | | (NA,K,CL,CO2,BUN,CRE | | | | results section. | | AT,GLUC,CA,AST,ALT,B | | | | | | ROBIN TOTAL,ALK | | | | | | PHOS,ALB,PROT TOTAL) | | | | | + +--------+ + + + documented in this encounter Results CBC, WITH DIFFERENTIAL (08/01/2012) + +-------+ + + + | Component | Value | Ref Range | Performed | Pathologist | | | | | At | Signature | + +-------+ + + + | WHITE CELL | 9.8 | K/cu mm | NON [facility] | | | COUNT | | | LAB | | + +-------+ + + + | RED CELL | 4.51 | M/cu mm | NON [facility] | | | COUNT | | | LAB | | + +-------+ + + + | HEMOGLOBIN | 14 | 13.5 - 17.5 | NON [facility] | | | | | g/dL | LAB | | + +-------+ + + + | HEMATOCRIT | 41.7 | % | NON [facility] | | | | | | LAB | | + +-------+ + + + | MCV | 92.4 | fL | NON [facility] | | [...] +-------+ + + + | PLATELET | 269 | K/cu mm | NON [facility] | | | COUNT | | | LAB | | + +-------+ + + + | NEUTROPHIL | 80.8 | % | NON [facility] | | | % | | | LAB | | + +-------+ + + + | LYMPHOCYTE | 12.3 | % | NON [facility] | | | % | | | LAB | | + +-------+ + + + | MONOCYTE % | 5 | % | NON [facility] | | | | | | LAB | | + +-------+ + + + | EOS % | 1.4 | % | NON [facility] | | | | | | LAB | | + +-------+ + + + | BASO % | 0.5 | % | NON [facility] | | | | | | LAB | | + +-------+ + + + | RDW | 12.3 | % | NON [facility] | | [...] + + + | ESR (SED | 25 | | NON [facility] | | | [...] COMPLETE METABOLIC SET (NA,K,CL,CO2,BUN,CREAT,GLUC,CA,AST,ALT,BILI TOTAL,ALK PHOS,ALB,PROT TOTAL) (08/01/2012) + +-------+ + + + | Component | Value | Ref Range | Performed | Pathologist | | | | | At | Signature | + +-------+ + + + | GLUCOSE, | 84 | 65 - 110 mg/dL | NON [facility] | | | PLASMA | | | LAB | | | (LAB) | | | | | + +-------+ + + + | BUN, PLASMA | 16 | mg/dL | NON [facility] | | | (LAB) | | | LAB | | + +-------+ + + + | CREATININE | 0.74 | mg/dL | NON [facility] | | [...] +-------+ + + + | ALBUMIN, | 4.9 | g/dL | NON [facility] | | [...] +-------+ + + + | AST(SGOT) | 21 | U/L | NON [facility] | | | | | | LAB | | + +-------+ + + + | SODIUM, | 138 | mmol/L | NON [facility] | | | PLASMA | | | LAB | | | (LAB) | | | | | + +-------+ + + + | POTASSIUM, | 4.2 | mmol/L | NON [facility] | | | PLASMA | | | LAB | | | (LAB) | | | | | + +-------+ + + + | CHLORIDE, | 103 | mmol/L | NON [facility] | | | PLASMA | | | LAB | | | (LAB) | | | | | + +-------+ + + + | TOTAL CO2, | 25 | mmol/L | NON [facility] | | | PLASMA | | | LAB | | | (LAB) | | | | | + +-------+ + + + | ALT (SGPT) | 30 | U/L | NON [facility] | | [...]
--- OUTSIDE RECORDS SUMMARY | ~2019-07-17 | XMS | Encounter Summary ---
Demographics + + + | Address | [address] | | | [place] [address] | + + + | Home Phone | | + + + | Preferred Language | Unknown | + + + | Marital Status | | + + + | Jew Affiliation | NRP | + + + [...] Team Providers + +------+ + | Care Cloth Neutralizer Name | Role | Phone | + +------+ + | Erich Morales | PCP | | + +------+ + Encounter Details +--------+ + + + + | Date | Type | Department | Care Team | Description | +--------+ + + + + | 08/09/ | Documentati | Infectious | [facility] | | | 2012 | on | [facility] | [place] | | | | | Floor [address] | | | | | [address] | | | | | | Mail[address]: [id number] | | | | | | [facility] | | | | | | [place], [place] | | | | | | [address] | | | | | | [phone] | | | +--------+ + + + [...]
--- OUTSIDE RECORDS SUMMARY | ~2019-07-17 | XMS | Encounter Summary ---
Demographics + + + | Address | [address] | | | [place] [address] | + + + | Home Phone [...] Team Providers + +------+ + | Care Purchasing Internship Name | Role | Phone | + [...] | +--------+ + + + + | 01/26/ | Telephone | Orthopaedics at | Thor Ho MD | Refill Encounters | | 2011 | | [facility] [address] | | | | | | [address] | | | | | | [address] | | | | | | [place] | | | | | | [address] | | | | | | [phone] | | | +--------+ + + + [...]
--- OUTSIDE RECORDS SUMMARY | ~2019-07-17 | XMS | Encounter Summary ---
Demographics + + + | Address | [address] | | | [place] [address] | + + + | Home Phone | | + + + | Preferred Language | Unknown | + + + | Marital Status | | + + + | Jainism Affiliation | NRP | + + + [...] Team Providers + +------+ + | Care Candy Cutter Hand Name | Role | Phone | + [...] | +--------+ + + + + | 10/03/ | Telephone | Orthopaedics at | Thor Ho MD | Refill Encounters | | 2012 | | [facility] [address] | | | | | | [address] | | | | | | [facility] [address] | | | | | | [place] | | | | | | [address] | | | | | | [phone] | | | +--------+ + + + [...]
--- OUTSIDE RECORDS SUMMARY | ~2019-07-17 | XMS | Encounter Summary ---
Demographics + + + | Address | [address] | | | [place] [address] | + + + | Home Phone | | + + + | Preferred Language | Unknown | + + + | Marital Status | | + + + | Samaritan Affiliation | NRP | + + + | Race | White | + + + | Ethnic Group | Not or | + + + Author + + + | Author | [facility] | + + + | Organization | [facility] | + + + | Address | Unknown | + + + | Phone | Unavailable | + + + Support + + +---------+ + | Name | Relationship | Address | Phone | + + +---------+ + | Soledad Muñiz | ECON | , [place] | | + + +---------+ + Care Team Providers + +------+ + | Care Vascular Neurologist Name | Role | Phone | + +------+ + | Erich Morales | PCP | | + +------+ + Encounter Details +--------+ + + + + | Date | Type | Department | Care Team | Description | +--------+ + + + + | 08/17/ | Abstract | Infectious | Hillary [facility]on | | | 2012 | | [facility] | [place] | | | | | [address] | | | | [address] | | | | | | Mail[address]: [id number] | | | | | | [facility] | | | | | | [place], [place] | | | | | | [address] | | | | | | [phone] | | | +--------+ + + + [...] + | CBC, WITH | Routin | 08/16/2012 | | Results for this | | DIFFERENTIAL | e | 7:50 PM | | procedure are in the | | | | PST | | results section. | + +--------+ + + + | COMPLETE METABOLIC | Routin | 08/16/2012 | | Results for this | | SET | e | 7:50 PM | | procedure are in the | | (NA,K,CL,CO2,BUN,CRE | | PST | | results section. | | AT,GLUC,CA,AST,ALT,B | | | | | | ROBIN TOTAL,ALK | | | | | | PHOS,ALB,PROT TOTAL) | | | | | + +--------+ + + + documented in this encounter Results CBC, WITH DIFFERENTIAL (08/16/2012 7:50 PM PST) + +-------+ + + + | Component | Value | Ref Range | Performed | Pathologist | | | | | At | Signature | + +-------+ + + + | WHITE CELL | 6.7 | K/cu mm | NON [facility] | | | COUNT | | | LAB | | + +-------+ + + + | RED CELL | 4.59 | M/cu mm | NON [facility] | [...] +-------+ + + + | MCV | 92.2 | fL | NON [facility] | | [...] +-------+ + + + | PLATELET | 294 | K/cu mm | NON [facility] | | | COUNT | | | LAB | | + +-------+ + + + | NEUTROPHIL | 52.5 | % | NON [facility] | | | % | | | LAB | | + +-------+ + + + | LYMPHOCYTE | 30.7 | % | NON [facility] | | | % | | | LAB | | + +-------+ + + + | MONOCYTE % | 10.9 | % | NON [facility] | | | | | | LAB | | + +-------+ + + + | EOS % | 5.1 | % | NON [facility] | | | | | | LAB | | + +-------+ + + + | BASO % | 0.8 | % | NON [facility] | | [...] + + + | ESR (SED | 6 | | NON [facility] | | | [...] COMPLETE METABOLIC SET (NA,K,CL,CO2,BUN,CREAT,GLUC,CA,AST,ALT,BILI TOTAL,ALK PHOS,ALB,PROT TOTAL) (08/16/2012 7:50 PM PST) + +-------+ + + + | Component | Value | Ref Range | Performed | Pathologist | | | | | At | Signature | + +-------+ + + + | GLUCOSE, | 78 | 65 - 110 mg/dL | NON [facility] | | | PLASMA | | | LAB | | | (LAB) | | | | | + +-------+ + + + | BUN, PLASMA | 16 | mg/dL | NON [facility] | | | (LAB) | | | LAB | | + +-------+ + + + | CREATININE | 0.86 | mg/dL | NON [facility] | | | PLASMA | | | LAB | | | (LAB) | | | | | + +-------+ + + + | TOTAL | 7.9 | g/dL | NON [facility] | | [...] +-------+ + + + | CALCIUM, | 9.4 | mg/dL | NON [facility] | | | PLASMA | | | LAB | | | (LAB) | | | | | + +-------+ + + + | BILIRUBIN | 0.3 | Transcutaneous | NON [facility] | | | TOTAL | | Bilirubinometer | LAB | | + +-------+ + + + | ALK PHOS | 65 | U/L | NON [facility] | | | | | | LAB | | + +-------+ + + + | AST(SGOT) | 34 | U/L | NON [facility] | | | | | | LAB | | + +-------+ + + + | SODIUM, | 137 | mmol/L | NON [facility] | | | PLASMA | | | LAB | | | (LAB) | | | | | + +-------+ + + + | POTASSIUM, | 3.5 | mmol/L | NON [facility] | | | PLASMA | | | LAB | | | (LAB) | | | | | + +-------+ + + + | CHLORIDE, | 100 | mmol/L | NON [facility] | | | PLASMA | | | LAB | | | (LAB) | | | | | + +-------+ + + + | TOTAL CO2, | 28 | mmol/L | NON [facility] | | | PLASMA | | | LAB | | | (LAB) | | | | | + +-------+ + + + | ALT (SGPT) | 68 | U/L | NON [facility] | | | | | | LAB | | + +-------+ + + + | C-REACTIVE | <5 | mg/dl | NON [facility] | | | PROTEIN | | | LAB | | + +-------+ + + + | VANCOMYCIN, | 14.8 | ug/mL | NON [facility] | | [...]
--- OUTSIDE RECORDS SUMMARY | ~2019-07-17 | XMS | Encounter Summary ---
Demographics + + + | Address | [address] | | | [place] [address] | + + + | Home Phone [...] | Author | [facility] | + + + | Organization | [facility] | + + + | Address | Unknown | + + + | Phone | Unavailable | + + + Support + + +---------+ + | Name | Relationship | Address | Phone | + + +---------+ + | Soledad Muñiz | ECON | , [place] | | + + +---------+ + Care Team Providers + +------+ + | Care Scientist Propagator Name | Role | Phone | + [...] Disorder | | 2005 | Visit | [place] | | of Choroid | | | | Photography at | | | | | | [facility] [address] | | | | | | [place] | | | | | | Mailcode: [address] | | | | | | [place] [address] | | | | | | [phone] | | | +--------+---------+ + + + [...] Muñiz was seen in the [facility] [place] [facility] otography Department today, 02/21/2006, for May. documented in this encount er Plan of Treatment Not on filedocumented as of this encounter Visit Diagnoses + + | Diagnosis | + + | Unspecified disorder of choroid | + + documented in this encounter"
--- OUTSIDE RECORDS SUMMARY | ~2019-07-17 | XMS | Encounter Summary ---
Demographics + + + | Address | [address] | | | [place] [address] | + + + | Home Phone | | + + + | Preferred Language | Unknown | + + + | Marital Status | | + + + | Presybeterian Affiliation | NRP | + + + | Race | White | + + + | Ethnic Group | Not or | + + + Author + + + | Author | [facility] | + + + | Organization | [facility] | + + + | Address | Unknown | + + + | Phone | Unavailable | + + + Support + + +---------+ + | Name | Relationship | Address | Phone | + + +---------+ + | Soledad Muñiz | ECON | , [place] | | + + +---------+ + Care Team Providers + +------+ + | Care Demolition Specialist Name | Role | Phone | + [...] 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 documented in this encounte r Plan of Treatment Not on filedocumented as of this encounter Visit Diagnoses + + | Diagnosis | + + | Unspecified disorder of choroid - Primary | + + documented in this encounter"
--- OUTSIDE RECORDS SUMMARY | ~2019-07-17 | XMS | Encounter Summary ---
Demographics + + + | Address | [address] | | | [place] [address] | + + + | Home Phone | | + + + | Preferred Language | Unknown | + + + | Marital Status | | + + + | Anabaptist Affiliation | NRP | + + + [...] Team Providers + +------+ + | Care Junior Electrical Engineer Name | Role | Phone | + +------+ + | Tsering Mcdonald | PCP | | + +------+ + Reason for Visit + + + | Reason | Comments | + + + | New patient | right hand lac | | consultation | | + + + Consultation (Routine) +--------+--------+ + + + + | Status | Reason | Specialty | Diagnoses / | Referred By | Referred To | | | | | Procedures | Contact | Contact | +--------+--------+ + + + + | Closed | | Orthopedics | Diagnoses | Non-[facility] | [facility], | | | | | Laceration | Epic Dept | Harjinder Aguilar MD | | | | | of right | | [address] | | | | | hand right | | [address] | | | | | hand | | [address] [place], | | | | | laceration. | | [place] | | | | | | | [address] | | | | | | | Phone: | | | | | | | [phone] | | | | | | | Fax: | | | | | | | [phone] | +--------+--------+ + + + + Encounter Details +--------+---------+ + + + | Date | Type | Department | Care Team | Description | +--------+---------+ + + + | 10/26/ | Office | Orthopaedics at | Harjinder Youngblood, | Tendon laceration | | 2010 | Visit | [facility] [address] | [address] | (Primary Dx) | | | | Ave Mailcode: [address] | [address] | | | | | [place] [facility] | [place], [place] | | | | | and Healing, | [address] | | | | | | [phone] | | | | | Floor [place], [place] | | | | | | [address] | | | | | | [phone] | | | +--------+---------+ + + + [...] + + + | Blood Pressure | 133/73 | 10/26/2010 11:41 AM | | | | | PDT | | + + + + + | Pulse | 77 | 10/26/2010 11:41 AM | | | | | PDT | | + + + + + | Temperature | - | - | | + + + + + | Respiratory Rate | 16 | 10/26/2010 11:41 AM | | | | | PDT | | + + + + + | Oxygen Saturation | - | - | | + + + + + | Inhaled Oxygen | - | - | | | Concentration | | | | + + + + + | Weight | 80.7 kg (178 lb) | 10/26/2010 11:41 AM | | | | | PDT | | + + + + + | Height | 175.3 cm (5' 9") | 10/26/2010 11:41 AM | | | | | PDT | | + + + + + | Body Mass Index | 26.29 | 10/26/2010 11:41 AM | | | | | PDT | | + + + + + documented in this encounter Progress Notes Harjinder Youngblood MD - 10/31/2010 9:34 AM PDTFormatting of this note might be different fr om the original. CC: Right forearm laceration HPI: Jaron Muñiz is a 30 y.o. right hand dominant male with right forearm lacerat ion. The problem started last week. He denies N/T but notes muscle weakness. By report th ere is partial laceration of flexor tendon in forearm. Would was sutured in outside ER Occupation: na Work Related Injury/Workers Comp: na Filed Vitals: 10/26/2010 11:41 AM Height: 1.753 m (5' 9") Weight: 80.74 kg (178 lb) BP: 133/73 Pulse: 77 Resp: 16 PainSc: 05 - Moderate to Severe BMI: 26.29 kg/(m^2) Past Medical History Diagnosis Date Retinitis pigmentosa Past Surgical History Procedure Date Pr remv cataract extracap,insert lens both eyes done at non [facility] facility Pr discission,2nd cataract,laser 02/21/06 YAG, right eye No current outpatient prescriptions on file prior to encounter. No Known Allergies Fam: Non-contributory History Social History Marital Status: Spouse Name: N/A Number of Children: N/A Years of Education: N/A Occupational History Not on file. Social History Main Topics Smoking status: Not on file Smokeless tobacco: Not on file Alcohol Use: Not on file Drug Use: Not on file Sexually Active: Not on file Other Topics Concern Not on file Social History Narrative No narrative on file REVIEW OF SYSTEMS: Intake form was reviewed and pertinent positives are listed on this for m PHYSICAL EXAMINATION: Well developed, well nourished male Appears stated age Patient sitting comfortably, no acute distress Awake, alert, oriented x 3, interactive and appropriate NCAT, PERRL Neck demonstates full ROM without pain Skin demonstrates no erythema, cellulitis, rashes, or streaking except as noted below No peripheral edema in bilateral lower extremities except where noted below +2 radial and ulnar pulses at wrist, regular pulse < 2 sec cap refill at fingertips bilaterally Median, ulnar, radial dermatomes intact to light touch bilaterally except where noted below Moves all extremities easily bilaterally except where noted below ROM of the elbow hand, wrist, and fingers is full bilaterally except where noted below Clean, dry healing wound on volar aspect of forearm. All muscle/tendons are active on flex ion, weakness with active flexion NVI distallyin median and ulnar nerves IMAGING/DIAGNOSTIC STUDIES: none IMPRESSION/PLAN: Forearm laceration with possible tendon involvement. It is partial by re port and I will observe for now. RTC in 1 week for suture removal and reassessment. documented in this e ncounter Plan of Treatment Not on filedocumented as of this encounter Visit Diagnoses + + | Diagnosis | + + | Tendon laceration - Primary Unspecified site of sprain and strain | + + documented in this encounter
--- OUTSIDE RECORDS SUMMARY | ~2019-07-17 | XMS | Encounter Summary ---
Demographics + + + | Address | [address] | | | [place] [address] | + + + | Home Phone | | + + + | Preferred Language | Unknown | + + + | Marital Status | | + + + | Jainism Affiliation | NRP | + + + | Race | White | + + + | Ethnic Group | Not or | + + + Author + + + | Author | [facility] | + + + | Organization | [facility] | + + + | Address | Unknown | + + + | Phone | Unavailable | + + + Support + + +---------+ + | Name | Relationship | Address | Phone | + + +---------+ + | Soledad Muñiz | ECON | , [place] | | + + +---------+ + Care Team Providers + +------+ + | Care Metal Furniture Repairer Name | Role | Phone | [...] | | | hand | | [address] [employer], | | | | | laceration. | | [place] | | | | | | | [address] | | | | | | | Phone: | | | | | | | [phone] | | | | | | | Fax: | | | | | | | [phone] | +--------+--------+ + + + + Encounter Details +--------+---------+ + + + | Date | Type | Department | Care Team | Description | +--------+---------+ + + + | 10/26/ | Office | Orthopaedics at | Harjinder Youngblood, | Tendon laceration | | 2010 | Visit | [facility] [address] | [address] | (Primary Dx) | | | | Ave Mailcode: [address] | [address] | | | | | [place] for [facility] | [place], [place] | | | | | and Healing, | [address] | | | | | | [phone] | | | | | Floor [place], [place] | | | | | | [address] | | | | | | [phone] | | | +--------+---------+ + + + [...] extracap,insert lens both eyes done at non [facility] facility Pr discission,2nd cataract,laser 02/21/06 YAG, [...]
--- OUTSIDE RECORDS SUMMARY | ~2019-07-17 | XMS | Encounter Summary ---
Demographics + + + | Address | [address] | | | [place] [address] | + + + | Home Phone | | + + + | Preferred Language | Unknown | + + + | Marital Status | | + + + | Cheondoism Affiliation | NRP | + + + | Race | White | + + + | Ethnic Group | Not or | + + + Author + + + | Author | [facility] | + + + | Organization | [facility] | + + + | Address | Unknown | + + + | Phone | Unavailable | + + + Support + + +---------+ + | Name | Relationship | Address | Phone | + + +---------+ + | Soledad Muñiz | ECON | , [place] | | + + +---------+ + Care Team Providers + +------+ + | Care [employer] Psychologist Name | Role | Phone | + [...] | +--------+ + + + + | 09/10/ | Telephone | Orthopaedics at | Thor Ho MD | Refill Encounters | | 2012 | | [facility] [address] | | | | | | [address] | | | | | | [facility] [address] | | | | | | [place] | | | | | | [address] | | | | | | [phone] | | | +--------+ + + + [...]
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
--- OUTSIDE RECORDS SUMMARY | ~2019-07-17 | XMS | Encounter Summary ---
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 | | PATHOLOGY | | + + + + + + | MONOCYTE # | 0.7 | <0.9 K/cu mm | [facility] | | | | | | DEPARTMENT | | | | | | OF | | | | | | PATHOLOGY | | + + + + + + | EOS # | 0.0 | <0.6 K/cu mm | [facility] | | | | | | DEPARTMENT | | | | | | OF | | | | | | PATHOLOGY | | + + + + + + | BASO # | 0.0 | <0.2 | [facility] | | | | | | DEPARTMENT | | | | | | OF | | | | | | PATHOLOGY | | + + + + + + + + | Specimen | + + | | + + + + + + + | Performing | Address | City/State/Zipcode | Phone Number | | Organization | | | | + + + + + | [facility] DEPARTMENT OF | [address] | [place] [address] | | | PATHOLOGY | [address] | | | + + + + + INR (01/02/2012 2:33 PM PDT) + + + + + + | Component | Value | Ref Range | Performed | Pathologist | | | | | At | Signature | + + + + + + | INR | 1.09Comment: | 0.90 - 1.20 INR | [facility] | | | | INR Therapeutic ranges | | DEPARTMENT | | | | for full | | OF | | | | anticoagulation: | | PATHOLOGY | | | | INR for Venous | | | | | | Thromboembolism | | | | | | (2.0-3.0) | | | | | | INR INR for most | | | | | | patients with mech. | | | | | | valves (2.5-3.5) | | | | | | INR | | | | + + + + + + + + | Specimen | + + | Blood - Blood | + + + + + + + | Performing | Address | City/State/Zipcode | Phone Number | | Organization | | | | + + + + + | [facility] DEPARTMENT OF | [address] | [place] [address] | | | PATHOLOGY | [address] | | | + + + + + BASIC METABOLIC SET (NA, K, CL, TCO2, BUN, CR, GLU, CA) (01/02/2012 2:33 PM PDT) + + + + + + | Component | Value | Ref Range | Performed | Pathologist | | | | | At | Signature | + + + + + + | GLUCOSE, | 112 (H) | 60 - 99 mg/dL | [facility] | | | PLASMA | | | DEPARTMENT | | | (LAB) | | | OF | | | | | | PATHOLOGY | | + + + + + + | BUN, PLASMA | 13 | 6 - 20 mg/dL | [facility] | | | (LAB) | | | DEPARTMENT | | | | | | OF | | | | | | PATHOLOGY | | + + + + + + | CREATININE | 0.83 | 0.70 - 1.30 | [facility] | | | PLASMA | | mg/dL | DEPARTMENT | | | (LAB) | | | OF | | | | | | PATHOLOGY | | + + + + + + | SODIUM, | 138 | 134 - 143 | [facility] | | | PLASMA | | mmol/L | DEPARTMENT | | | (LAB) | | | OF | | | | | | PATHOLOGY | | + + + + + + | POTASSIUM, | 3.9 | 3.4 - 5.0 | [facility] | | | PLASMA | | mmol/L | DEPARTMENT | | | (LAB) | | | OF | | | | | | PATHOLOGY | | + + + + + + | CHLORIDE, | 107 | 97 - 108 mmol/L | [facility] | | | PLASMA | | | DEPARTMENT | | | (LAB) | | | OF | | | | | | PATHOLOGY | | + + + + + + | TOTAL CO2, | 25 | 22 - 29 mmol/L | [facility] | | | PLASMA | | | DEPARTMENT | | | (LAB) | | | OF | | | | | | PATHOLOGY | | + + + + + + | CALCIUM, | 9.0 | 8.6 - 10.2 | [facility] | | | PLASMA | | mg/dL | DEPARTMENT | | | (LAB) | | | OF | | | | | | PATHOLOGY | | + + + + + + | EGFR | > 60 | >60 mL/min | [facility] | | | - | | | DEPARTMENT | | | [facility] | | | OF | | | | | | PATHOLOGY | | + + + + + + | EGFR NON | > 60Comment: GFR is | >60 mL/min | [facility] | | | -XOCHITL | estimated using the MDRD | | DEPARTMENT | | | RICAN | equation recommended by | | OF | | | | theNational Kidney | | PATHOLOGY | | | | Disease Education | | | | | | Program. Estimated GFR | | | | | | Interpretive | | | | | | Information: <60 | | | | | | mL/min/1.73 sq m | | | | | | Chronic Kidney Disease | | | | | | <15 mL/min/1.73 sq m | | | | | | Kidney Failure | | | | | | Estimated GFR greater | | | | | | than 60mL/min/1.73 is of | | | | | | limited clinical Value. | | | | | | The MDRD equation is | | | | | | not valid in the | | | | | | following situations: - | | | | | | Patients under 18 years | | | | | | of age - Severe | | | | | | malnutrition or obesity | | | | | | - Vegetarian diet - | | | | | | Rapidly changing kidney | | | | | | function | | | | + + + + + + | ANION GAP | 6 | 4 - 11 mmol/L | [facility] | | | | | | DEPARTMENT | | | | | | OF | | | | | | PATHOLOGY | | + + + + + + + + | Specimen | + + | Blood - Blood | + + + + + + + | Performing | Address | City/State/Zipcode | Phone Number | | Organization | | | | + + + + + | [facility] DEPARTMENT OF | [address] | [place] [address] | | | PATHOLOGY | [address] | | | + + + + + CBC, WITH DIFFERENTIAL (01/02/2012 2:33 PM PDT) + + + + + + | Component | Value | Ref Range | Performed | Pathologist | | | | | At | Signature | + + + + + + | WHITE CELL | 13.4 (H) | 4.4 - 11.0 K/cu | [facility] | | | COUNT | | mm | DEPARTMENT | | | | | | OF | | | | | | PATHOLOGY | | + + + + + + | RED CELL | 4.56 | 4.50 - 5.90 | [facility] | | | COUNT | | M/cu mm | DEPARTMENT | | | | | | OF | | | | | | PATHOLOGY | | + + + + + + | HEMOGLOBIN | 14.9 | 13.5 - 17.5 | [facility] | | | | | g/dL | DEPARTMENT | | | | | | OF | | | | | | PATHOLOGY | | + + + + + + | HEMATOCRIT | 42.7 | 41.0 - 53.0 % | [facility] | | | | | | DEPARTMENT | | | | | | OF | | | | | | PATHOLOGY | | + + + + + + | MCV | 93.8 | 80.0 - 96.0 fL | [facility] | | | | | | DEPARTMENT | | | | | | OF | | | | | | PATHOLOGY | | + + + + + + | MCHC | 34.8 | 33.4 - 35.5 | [facility] | | | | | g/dL | DEPARTMENT | | | | | | OF | | | | | | PATHOLOGY | | + + + + + + | RDW | 13.5 | 11.5 - 15.0 % | [facility] | | | | | | DEPARTMENT | | | | | | OF | | | | | | PATHOLOGY | | + + + + + + | PLATELET | 240 | 150 - 400 K/cu | [facility] | | | COUNT | | mm | DEPARTMENT | | | | | | OF | | | | | | PATHOLOGY | | + + + + + + + + | Specimen | + + | Blood - Blood | + + + + + + + | Performing | Address | City/State/Zipcode | Phone Number | | Organization | | | | + + + + + | [facility] DEPARTMENT OF | [address] | [place] [address] | | | PATHOLOGY | [address] | | | + + + + + documented in this encounter Visit Diagnoses + + | Diagnosis | + + | Right foot injury Injury, other and unspecified, knee, leg, ankle, and foot | + + documented in this encounter Administered Medications + +--------+ +-------+------+ + | Medication Order | MAR | Action | Dose | Rate | Site | | | Action | Date | | | | + +--------+ +-------+------+ + | bupivacaine-EPINEPHrine (aka | Given | 01/03/20 | 10 mL | | Surgical | | MARCAINE-EPINEPHRINE) 0.25 | | 12 11:32 | | | Site | | %-1:200,000 injection | | AM PDT | | | | | INTRAPROCEDURE PRN, Starting Tue | | | | | | | 01/03/12 at 1132, Until Tue | | | | | | | 01/03/12 at 1211 | | | | | | + +--------+ +-------+------+ + +---+---+ | | | +---+---+ + +-------+ +--------+---+--------+ | thrombin 5000 unit topical | Given | 01/03/20 | 5,000 | | Right | | solution INTRAPROCEDURE PRN, | | 12 10:32 | Units | | Foot | | Starting 01/03/12 at 1032, | | AM PDT | | | | | Until 01/03/12 at 1211 | | | | | | + +-------+ +--------+---+--------+ +---+---+ | | | +---+---+ + +-------+ +---+---+--------+ | vancomycin (cement antibiotic) | Given | 01/03/20 | | | Right | | INTRAPROCEDURE PRN, Starting Tue | | 12 10:53 | | | Foot | | 01/03/12 at 1053, Until Tue | | AM PDT | | | | | 01/03/12 at 1211 | | | | | | + +-------+ +---+---+--------+ +---+---+ | | | +---+---+ documented in this encounter
--- OUTSIDE RECORDS SUMMARY | ~2019-07-17 | XMS | Encounter Summary ---
Demographics + + + | Address | [address] | | | [place] [address] | + + + | Home Phone | | + + + | Preferred Language | Unknown | + + + | Marital Status | | + + + | Methodist Affiliation | NRP | + + + | Race | White | + + + | Ethnic Group | Not or | + + + Author + + + | Author | [facility] | + + + | Organization | [facility] | + + + | Address | Unknown | + + + | Phone | Unavailable | + + + Support + + +---------+ + | Name | Relationship | Address | Phone | + + +---------+ + | Soledad Muñiz | ECON | , [place] | | + + +---------+ + Care Team Providers + +------+ + | Care Vehicle Operator Name | Role | Phone | + +------+ + | Erich Morales | PCP | | + +------+ + Reason for Visit + + + | Reason | Comments | + + + | Refill Request | | + + + Encounter Details +--------+--------+ + + + | Date | Type | Department | Care Team | Description | +--------+--------+ + + + | 10/04/ | Refill | Infectious | Della Ulloa, | Refill Request | | 2012 | | Diseases at [facility] 3[facility] | MD [address] | | | | | Floor [address] | | | | | [address] | [place] [address] | | | | | Mailcode: [id number] | [phone] | | | | | Len Vasquez | | | | | | [place], [place] | | | | | | [address] | | | | | | [phone] | | | +--------+--------+ + + + Social History + + [...]
--- OUTSIDE RECORDS SUMMARY | ~2019-07-17 | XMS | Encounter Summary ---
Demographics + + + | Address | [address] | | | [place] [address] | + + + | Home Phone [...] Team Providers + +------+ + | Care Smoking Pipe Driller And Threader Name | Role | Phone | + [...] | +--------+ + + + + | 01/18/ | Telephone | Orthopaedics at | Thor Ho MD | Refill Encounters | | 2011 | | [facility] [address] | | | | | | [address] | | | | | | [address] | | | | | | [place] | | | | | | [address] | | | | | | [phone] | | | +--------+ + + + [...]
--- OUTSIDE RECORDS SUMMARY | ~2019-07-17 | XMS | Encounter Summary ---
Demographics + + + | Address | [address] | | | [place] [address] | + + + | Home Phone | | + + + | Preferred Language | Unknown | + + + | Marital Status | | + + + | Anglican Affiliation | NRP | + + + | Race | White | + + + | Ethnic Group | Not or | + + + Author + + + | Author | [facility] | + + + | Organization | [facility] | + + + | Address | Unknown | + + + | Phone | Unavailable | + + + Support + + +---------+ + | Name | Relationship | Address | Phone | + + +---------+ + | Soledad Muñiz | ECON | , [place] | | + + +---------+ + Care Team Providers + +------+ + | Care Cotton Ginner Name | Role | Phone | + [...] | +--------+ + + + + | 01/11/ | Telephone-S | Preoperative | | Pre-op evaluation | | 2011 | cheduled | Medicine Clinic at | | | | | | [facility] 4[facility] Floor Day | | | | | | Stay [address] | | | | | [address] | | | | | | Mailcode: [id number] | | | | | | [facility] | | | | | | [address] [place], [place] | | | | | | [address] | | | | | | [phone] | | | +--------+ + + + [...] anterior; foot; 01/13/12; | France Rao, | eBbe Stinson RN | | [facility] | 1225 [...] of this encounter Patient Instructions Patient Instructions Natalia Vasquez Np - 01/12/2012 10:52 AM PDTFormatting of this note m ight be different from the original. PREOPERATIVE INSTRUCTIONS Do not eat or drink anything after midnight the night before surgery. TAKE the following medications with a sip of water on the morning of surgery: Current Medication List Name Sig ACETAMINOPHEN 650 MG TAB Take 650 mg by mouth every six hours. Indications: Pain GABAPENTIN 300 MG CAP Take 1 Cap by mouth three times daily for 30 days. Indications: Posto perative Acute Pain OXYCODONE 5 MG TAB Take 1-3 Tabs by mouth every three hours as needed for severe pain or br eakthrough pain. Indications: Pain SENNOSIDES-DOCUSATE SODIUM 8.6 MG-50 MG TAB Take 1 Tab by mouth two times daily. Indication s: Constipation SULFAMETHOXAZOLE-TRIMETHOPRIM 800 MG-160 MG TAB Take 1 Tab by mouth two times daily for 14 days. Do NOT take the following medications on the morning of surgery: ASCORBIC ACID 500 MG TAB Take 1 Tab by mouth two times daily for 30 days. Do not take any Aspirin, vitamin E [...] our office . Important Guidelines Do not smoke, drink alcohol or use recreational drugs for 24 hours before your surgery Do not eat any hard candy or chew gum after midnight the night before your surgery. Watch for any change in your health condition. Let your surgeon know right away if you do not feel well. Do not wear makeup, perfume, lotions or powder. Remove any nail georgian from at least one fingernail. Do not [...] before and the morning of your procedure. Surgery Check in Locations Admitting [facility] Surgery Check in Time: Someone from your surgeon's office or [facility] will provide you with information regarding your check in time. If you have any questions about this, pl ease contact your surgeon's office. Going Home Your surgical team will decide when you are medically ready to go home. If you are released to go home on the same day as your procedure/surgery please note the following: You will not be able to drive. You will be required to have a competent adult drive you or accompany you by taxi or pub lic transportation on the day of discharge. It is also required that you have a competent adult assist you and look after you on the first night after you have undergone regional blocks (72 hours for patients going home with regional block pump), deep sedation, and/or general anesthesia. If you have questions or concerns after you go home, call your doctor s office. If it is after office hours, call the [facility] coin machine operator at [phone] and ask them to page your doc tor. documented in this encounter Plan of Treatment Not on filedocumented as of this encounter Visit Diagnoses Not on filedocumented in this encounter"
--- OUTSIDE RECORDS SUMMARY | ~2019-07-17 | XMS | Encounter Summary ---
Demographics + + + | Address | [address] | | | [place] [address] | + + + | Home Phone | | + + + | Preferred Language | Unknown | + + + | Marital Status | | + + + | Church Affiliation | NRP | + + + [...] Team Providers + +------+ + | Care Cook Soup Name | Role | Phone | + +------+ + | Erich Morales | PCP | | + +------+ + Reason for Visit +--------+ + | Reason | Comments | +--------+ + | Other | Wound Check Care | +--------+ + Encounter Details +--------+ + + + + | Date | Type | Department | Care Team | Description | +--------+ + + + + | 08/06/ | Telephone | Orthopaedics at | Thor Ho MD | Other (Wound Check | | 2011 | | [facility] [address] | | Care) | | | | [address] | | | | | | [address] | | | | | | [place] | | | | | | [address] | | | | | | [phone] | | | +--------+ + + + [...]
--- OUTSIDE RECORDS SUMMARY | ~2019-07-17 | XMS | Encounter Summary ---
Demographics + + + | Address | [address] | | | [place] [address] | + + + | Home Phone [...] Team Providers + +------+ + | Care Bicycle Assembler Name | Role | Phone | + [...] | 2011 | Event | [address] [facility] | [address] | | | | | [address] [facility] | [facility], | | | | | [facility] | [place] [address] | | | | | Desk Located on the | [phone] | | | | | 9th floor | | | | | | [place], [place] | [place], | | | | | [address] | PUBLIC RELATIONS [address] | | | | | | [address] | | | | | | [place], [place] | | | | | | [address] | | | | | | [phone] | | | | | | | [...]
--- OUTSIDE RECORDS SUMMARY | ~2019-07-17 | XMS | Encounter Summary ---
Demographics + + + | Address | [address] | | | [place] [address] | + + + | Home Phone | | + + + | Preferred Language | Unknown | + + + | Marital Status | | + + + | Shinto Affiliation | NRP | + + + | Race | White | + + + | Ethnic Group | Not or | + + + Author + + + | Author | [facility] | + + + | Organization | [facility] | + + + | Address | Unknown | + + + | Phone | Unavailable | + + + Support + + +---------+ + | Name | Relationship | Address | Phone | + + +---------+ + | Soledad Muñiz | ECON | , [place] | | + + +---------+ + Care Team Providers + +------+ + | Care Valve Machine Operator Name | Role | Phone [...] | +--------+ + + + + | 08/01/ | Telephone | Orthopaedics at | Thor Ho MD | Refill Encounters | | 2011 | | [facility] [address] | | | | | | [address] | | | | | | [facility] [address] | | | | | | [place] | | | | | | [address] | | | | | | [phone] | | | +--------+ + + + [...]
--- OUTSIDE RECORDS SUMMARY | ~2019-07-17 | XMS | Clinical Summary ---
Demographics + + + | Address | [address] | | | [place] [address] | + + + | Home Phone | | + + + | Preferred Language | Unknown | + + + | Marital Status | | + + + | Tenriism Affiliation | Unknown | + + + | Race | Unknown | + + + | Ethnic Group | Unknown | + + + Author + + + | Author | [facility] | | | and [facility] | + + + | Organization | [facility] | | | and [facility] | + + + | Address | Unknown | + + + | Phone | Unavailable | + + + Support + + +---------+ + | Name | Relationship | Address | Phone | + + +---------+ + | Stephanie Muñiz | ECON | Unknown | | + + +---------+ + Care Team Providers + +------+ + | Care Entry Level Automotive Technician Name | Role | Phone | + +------+ + | Hemanth Raines MD | PCP | | + +------+ + Allergies No Known Allergies Medications + + + +---------+------+------+-------+ | Medication | Sig | Dispensed | Refills | Star | End | Statu | | | | | | t | Date | s | | | | | | Date | | | + + + +---------+------+------+-------+ | lisinopril | Take 10 mg by mouth | | 0 | | | Activ | | (PRINIVIL, ZESTRIL) | Daily. | | | | | e | | 10 mg tablet | | | | | | | + + + +---------+------+------+-------+ Active Problems Not on file Social History + +-------+ +--------+------+ | Tobacco Use | Types | Packs/Day | Years | Date | | | | | Used | | + +-------+ +--------+------+ | Former Smoker | | | | | + +-------+ +--------+------+ + +---+---+---+ | Smokeless Tobacco: | | | | | Current User | | | | + +---+---+---+ + + +---------+ + | Alcohol Use | Drinks/Week | oz/Week | Comments | + + +---------+ + | Yes | | | | + + +---------+ [...] + + + | Blood Pressure | 123/87 | 01/22/2019 10:16 PM | | | | | PDT | | + + + + + | Pulse | 84 | 01/22/2019 10:16 PM | | | | | PDT | | + + + + + | Temperature | 36.1 C (97 F) | 01/22/2019 7:09 PM | | | | | PDT | | + + + + + | Respiratory Rate | 21 | 01/22/2019 10:16 PM | | | | | PDT | | + + + + + | Oxygen Saturation | 96% | 01/22/2019 10:16 PM | | | | | PDT | | + + + + + | Inhaled Oxygen | - | - | | | Concentration | | | | + + + + + | Weight | 98.9 kg (218 lb) | 01/22/2019 7:09 PM | | | | | PDT | | + + + + + | Height | - | - | | + + + + + | Body Mass Index | - | - | | + + + + + Plan of Treatment + + + + + | Health Maintenance | Due Date | Last Done | Comments | + + + + + | Vaccine: | | | | | Dtap/Tdap/Td (1 - | 7 | | | | Tdap) | | | | + + + + + | Vaccine: Influenza | | 05/14/2015 | | | (#1) | 9 | | | + + + + + Results Not on filefrom Last 3 Months Insurance + +--------+ +--------+ +---------+--------+ | Payer | Benefi | Subscriber | Effect | Phone | Address | Type | | | t Plan | ID | brandon | | | | | | / | | Dates | | | | | | Group | | | | | | + +--------+ +--------+ +---------+--------+ | [employer] | [employer] | [id number] | | [phone] | | Medica | | MEDICAID HMO | HEALTH | | 019-Pr | 1 | | id | | | MDCD | | esent | | | | | | [place] | | | | | | + +--------+ +--------+ +---------+--------+ + +--------+ +--------+ + + | Guarantor Name | Accoun | Relation to | Date | Phone | Billing Address | | | t Type | Patient | of | | | | | | | | | | + +--------+ +--------+ + + | Jaron Muñiz | Person | Self | [birth year] | [address] | | | al/Fam | | 1980 | [phone] | [place] [address] | | | eric | | | 6 (Home) | | + +--------+ +--------+ + + Advance Directives + + + + + | Type | Date Recorded | Patient | Explanation | | | | Casing Running Machine Tender | | + + + + + | Power of | | | | | Senior It Recruiter | | | | + + + + + | Advance | 01/22/2019 8:16 | | | | Directive | PM | | | + + + + +"
--- OUTSIDE RECORDS SUMMARY | ~2019-07-17 | XMS | Encounter Summary ---
Demographics + + + | Address | [address] | | | [place] [address] | + + + | Home Phone | | + + + | Preferred Language | Unknown | + + + | Marital Status | | + + + | Restorationism Affiliation | NRP | + + + | Race | White | + + + | Ethnic Group | Not or | + + + Author + + + | Author | [facility] | + + + | Organization | [facility] | + + + | Address | Unknown | + + + | Phone | Unavailable | + + + Support + + +---------+ + | Name | Relationship | Address | Phone | + + +---------+ + | Soledad Muñiz | ECON | , [place] | | + + +---------+ + Care Team Providers + +------+ + | Care Explosive Ordnance Technician Name | Role | Phone | [...] | +--------+ + + + + | 10/26/ | Telephone | Orthopaedics at | Thor Ho MD | Refill Encounters | | 2012 | | [facility] [address] | | | | | | [address] | | | | | | [facility] [address] | | | | | | [place] | | | | | | [address] | | | | | | [phone] | | | +--------+ + + + [...]
--- OUTSIDE RECORDS SUMMARY | ~2019-07-17 | XMS | Encounter Summary ---
Demographics + + + | Address | [address] | | | [place] [address] | + + + | Home Phone | | + + + | Preferred Language | Unknown | + + + | Marital Status | | + + + | Latter-Day Affiliation | NRP | + + + [...] Team Providers + +------+ + | Care Tool Operator Name | Role | Phone | [...] | | | | [address] | [place] [address] | | | | | Mailcode: [id number] | [phone] | | | | | Len Vasquez | | | | | | [place], [place] | | | | | | [address] | | | | | | [phone] | | | +--------+--------+ + + + [...]
--- OUTSIDE RECORDS SUMMARY | ~2019-07-17 | XMS | Encounter Summary ---
Demographics + + + | Address | [address] | | | [place] [address] | + + + | Home Phone | | + + + | Preferred Language | Unknown | + + + | Marital Status | | + + + | Scientology Affiliation | NRP | + + + | Race | White | + + + | Ethnic Group | Not or | + + + Author + + + | Author | [facility] | + + + | Organization | [facility] | + + + | Address | Unknown | + + + | Phone | Unavailable | + + + Support + + +---------+ + | Name | Relationship | Address | Phone | + + +---------+ + | Soledad Muñiz | ECON | , [place] | | + + +---------+ + Care Team Providers + +------+ + | Care Heat And Vent Aircraft Mechanic Name | Role | Phone | + [...] [id number] | | | | | | [facility] | | | | | | [address] [place], [place] | | | | | | [address] | | | | | | [phone] | | | +--------+ + + + [...] perfume, lotions or powder. Remove any nail ghanaian from at least one fingernail. Do not [...] your procedure. Surgery Check in Locations Admitting [facility] Surgery Check in Time: Someone from your surgeon's office or [facility] will provide you with information regarding [...] it is after office hours, call the [facility] waffle machine operator at [phone] and ask them to page your doc tor. documented in this encounter Plan of Treatment Not on filedocumented as of this encounter Visit Diagnoses Not on filedocumented in this encounter"
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
--- OUTSIDE RECORDS SUMMARY | ~2019-07-17 | XMS | Encounter Summary ---
Demographics + + + | Address | [address] | | | [place] [address] | + + + | Home Phone [...] Team Providers + +------+ + | Care Dust Collector Ore Crushing Name | Role | Phone | + +------+ + PCP | Unavailable | + +------+ + Encounter Details +--------+ + + + + | Date | Type | Department | Care Team | Description | +--------+ + + + + | 09/11/ | Results | Emergency Medicine | Devin Sharpe MD | | | 1996 | Only | [address] | [address] | | | | | [address] | [address] [place], | | | | | [place], [place] | [place] [address] | | | | | [address] | [phone] | | | | | | | [...] | + +--------+ + + + | ABDOMEN, 2 VIEWS, | Urgent | 09/11/1996 | | Results for this | | W/PA CHEST | | 1:30 AM | | procedure are in the | | | | PST | | results section. | + +--------+ + + + documented in this encounter Results ABDOMEN, 2 VIEWS, W/PA CHEST (09/11/1996 1:30 AM PST) + + + + + + | Component | Value | Ref Range | Performed | Pathologist | | | | | At | Signature | + + + + + + | ABDOMEN, 2 | Radiologist 1: CESAR, | | | | | VIEWS, W/PA | [facility]-Radiologist 2: | | | | | CHEST | [facility] [place], | | | | | | RISHABH ECHEVARRIA | | | | | | | | | | | | | | | | | | AP | | | | | | SUPINE AND UPRIGHT VIEWS | | | | | | OF THE ABDOMEN/PA | | | | | | UPRIGHT CHEST: | | | | | | 09/11/96at 0130 hours. | | | | | | Dictated: 09/11/96 | | | | | | FINDINGS: The lungs are | | | | | | symmetrically inflated | | | | | | and clear. | | | | | | Thecardiomediastinal | | | | | | silhouette and pulmonary | | | | | | vascular pattern are | | | | | | allnormal in appearance. | | | | | | There is no | | | | | | suggestion of pleural | | | | | | effusion,pneumothorax, | | | | | | or pneumoperitoneum. The | | | | | | visualized osseous | | | | | | andextrathoracic soft | | | | | | tissue structures are | | | | | | unremarkable. Gas is | | | | | | seen within several | | | | | | non-dilated loops of | | | | | | small bowel, with | | | | | | oneunremarkable | | | | | | air/fluid level present | | | | | | on the upright film. | | | | | | Gas mixedwith fecal | | | | | | material is seen | | | | | | distributed throughout | | | | | | the nondilatedcolon, | | | | | | down to the level of the | | | | | | rectum. There is no | | | | | | suggestion | | | | | | oforganomegaly or | | | | | | ascites. No | | | | | | pathologic-appearing | | | | | | calcifications areseen | | | | | | overlying the biliary, | | | | | | pancreatic, or urinary | | | | | | tract systems. There is | | | | | | sacralization of the 5th | | | | | | lumbar vertebral body, | | | | | | but thevisualized | | | | | | osseous structures are | | | | | | intact. IMPRESSION: 1. | | | | | | Radiographically | | | | | | normal PA chest. 2. | | | | | | Unremarkable bowel gas | | | | | | pattern, with no | | | | | | evidence of obstruction | | | | | | orileus. 3. 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 END OF | | | | | | IMPRESSION: | | | | + + + + + + + + | Specimen | + + | | + + + +---------+ + + | Performing | Address | City/State/Zipcode | Phone Number | | Organization | | | | + +---------+ + + | [facility] DEPARTMENT OF | | | | | RADIOLOGY | | | | + +---------+ + + documented in this encounter Visit Diagnoses Not on filedocumented in this encounter"
--- OUTSIDE RECORDS SUMMARY | ~2019-07-17 | XMS | Encounter Summary ---
Demographics + + + | Address | [address] | | | [place] [address] | + + + | Home Phone | | + + + | Preferred Language | Unknown | + + + | Marital Status | | + + + | Hinduism Affiliation | NRP | + + + | Race | White | + + + | Ethnic Group | Not or | + + + Author + + + | Author | [facility] | + + + | Organization | [facility] | + + + | Address | Unknown | + + + | Phone | Unavailable | + + + Support + + +---------+ + | Name | Relationship | Address | Phone | + + +---------+ + | Soledad Muñiz | ECON | , [place] | | + + +---------+ + Care Team Providers + +------+ + | Care User Experience Architect Name | Role | Phone | + [...] [facility]ilion | | | | | | [place], [place] | | | | | | [address] | | | | | | [phone] | | | +--------+ + + + [...]
--- OUTSIDE RECORDS SUMMARY | ~2019-07-17 | XMS | Encounter Summary ---
Demographics + + + | Address | [address] | | | [place] [address] | + + + | Home Phone | | + + + | Preferred Language | Unknown | + + + | Marital Status | | + + + | Baptist Affiliation | NRP | + + + | Race | White | + + + | Ethnic Group | Not or | + + + Author + + + | Author | [facility] | + + + | Organization | [facility] | + + + | Address | Unknown | + + + | Phone | Unavailable | + + + Support + + +---------+ + | Name | Relationship | Address | Phone | + + +---------+ + | Soledad Muñiz | ECON | , [place] | | + + +---------+ + Care Team Providers + +------+ + | Care Borematic Machine Operator Name | Role | Phone [...] | +--------+ + + + + | 10/04/ | Telephone | Orthopaedics at | Thor Ho MD | Refill Encounters | | 2012 | | Pending [facility] To [facility] [address] | | | | | | [address] | | | | | | [facility] [address] | | | | | | [place] | | | | | | [address] | | | | | | [phone] | | | +--------+ + + + [...]
--- OUTSIDE RECORDS SUMMARY | ~2019-07-17 | XMS | Encounter Summary ---
Demographics + + + | Address | [address] | | | [place] [address] | + + + | Home Phone [...] + + + | Author | [facility] | + + + | Organization | [facility] | + + + | Address | Unknown | + + + | Phone | Unavailable | + + + Support + + +---------+ + | Name | Relationship | Address | Phone | + + +---------+ + | Soledad Muñiz | ECON | , [place] | | + + +---------+ + Care Team Providers + +------+ + | Care Radial Drill Press Operator For Plastic Name | Role | Phone | + [...] Refill Encounters | | 2012 | | [facility] [address] | | | | | | [address] | | | | | | [facility] [address] | | | | | | [place] | | | | | | [address] | | | | | | [phone] | | | +--------+ + + + [...]
--- OUTSIDE RECORDS SUMMARY | ~2019-07-17 | XMS | Encounter Summary ---
Demographics + + + | Address | [address] | | | [place] [address] | + + + | Home Phone | | + + + | Preferred Language | Unknown | + + + | Marital Status | | + + + | Pentecostalism Affiliation | NRP | + + + | Race | White | + + + | Ethnic Group | Not or | + + + Author + + + | Author | [facility] | + + + | Organization | [facility] | + + + | Address | Unknown | + + + | Phone | Unavailable | + + + Support + + +---------+ + | Name | Relationship | Address | Phone | + + +---------+ + | Soledad Muñiz | ECON | , [place] | | + + +---------+ + Care Team Providers + +------+ + | Care Buffing Machine Operator Semiautomatic Name | Role | Phone | + [...] | +--------+ + + + + | 01/01/ | Hospital | [facility] [address] | Alexis Khan MD | | | 2011 - | Encounter | [address] | [address] | | | | | [place], | [address] | | | 01/04/ | | [place] [address] | [place], [place] | | | 2011 | | [phone] | [address] | | | | | | [phone] | | | | | | | | | | | | Jaron Castro MD | | | | | | [address] | | | | | | [place] [facility] | | | | | | [place] [address] | | | | | | [phone] | | | | | | | [...] + documented in this encounter Discharge Summaries sAhley Martel MD - 01/05/2012 5:46 PM PDTFormatting of this note might be different fr om the original. [facility] DEPART[facility] OF ORTHOPAEDICS & REHABILITATION INPATIENT HOSPITAL DISCHARGE SUMMARY & INTERDISCIPLINARY INSTRUCTIONS Patient: Jaron Muñiz CSN: [id number] Admission Date: 01/02/2012 Discharge Date: 01/05/2012 Attending Physician: Thor Ho MD PCP: No Pcp Per PATIENT Service: [facility] Orthopaedics & Rehabilitation Diagnoses Principal Final Diagnosis: [...] management. He will remain nonweightbearing on the [facility] lower extremity until further evaluation in clinic. [...] e. Condition on Discharge Good Destination: Destination: half-way facility Discharge Medication List as of 01/05/2012 [...] (MORPHINE, PF, INJ) Comments: Reason for Stopping: [facility] Orthopaedic Service Pain Policy At the 6-week [...] NO EXCEPTIONS. Other Discharge Orders & Instructions [facility] DEPARTMENT OF ORTHOPAEDICS & REHABILITATION CARE INSTRUCTIONS FROM YOUR ORTHOPAEDIC SURGEON Do not drive if taking narcotic pain medications. HOW TO REACH YOUR ORTHOPAEDIC TEAM WITH QUESTIONS, CONCERNS, OR NEW SYMPTOMS: During the workday (M-F 8-5), please call . Someone from your orthopaedic te am will return your call shortly. After hours and weekend, please call and ask the filling and stapling machine operator the page the ortho paedic resident fire prevention engineer. Always call if anything should come up. [...] report these symptoms immediately to your physician. [facility] ORTHOPAEDIC PAIN MEDICATION POLICY (ABRIDGED): At the [...] Condition on Discharge: Improved Discharging Patient To: Alf Facilit Date and Time of Discharge Summary Completion: 01/05/2012, 5:46 PM Discharging Provider: ASHLEY MARTEL MD Discharging Attending: Thor Ho MD Thank you for the opportunity to take care of Jaron Muñiz during this inpatient sta y, it has been our pleasure. ASHLEY MARTEL MD 01/05/2012, 5:46 PM [facility] Department of Orthopaedics & Rehabilitation [address] [facility] Mail Code: OP31 Angelita JOYA [id number] Pager: [phone] documented in this enco unter Medications at [...] % Intake/Output Summary (Last 24 hours) at 01/05/12840 Last data filed at 01/05/12413 Gross per [...] with the above documentation. Thor Ho MD Media Planner / Buyer Orthopaedic Trauma [facility] Department of Orthopaedics hjolynnSadia viverosEMIR - 01/05/2012 7:31 AM PDT INPATIENT ADULT [...] 1 g Intravenous Q8H 1 g (01/05/12 0338) enoxaparin (aka LOVENOX) injection 40 mg 40 [...] Intravenous Q2H PRN 0.6 m g (01/05/12 6120) naloxone (aka NARCAN) injection Intravenous PRN ondansetron [...] excellent. My personal assessment is concordant with is evaluation. My treatment plan is: Patient to [...] pain. The most common side effects are RESIDENTIAL CARE FACILITY MANAGER effects of sedation, cognitive impairme nt, and [...] MD Ortho. SADIA URIBE NP BILLING INFORMATION [facility] DEPARTMENT: [id number] Place of Service:- Inpatient Date of Service: 01/05/2012 CSN: [id number] Suggested Modifier: None Suggested CPT: 17152 - [place] [facility],MATTHIEU I Mil Sen MD - 01/04/2012 7:48 AM [...] ready for skin graft (likely next Monday). Sadia Briones NP - 01/04/2012 7:27 AM PDT INPATIENT [...] al. JBJS Am Vol. 89(7) :1424-31, 2007 Dimitry. Marty HOYOS, et al. J Foot Ankle Surg. 15(4):179-82, 2008). My treatment plan is: Continue peripheral nerve [...] Ortho Trauma SADIA URIBE NP BILLING INFORMATION [facility] DEPARTMENT: [id number] Place of Service:- Inpatient Date of Service: 01/04/2012 CSN: [id number] Suggested Modifier: None Suggested CPT: 65431 - [place] [facility],LEVL I IASeAlexis nicholas MD - 01/03/2012 5:22 PM [...] PM PDT ORTHOPAEDIC OPERATIVE REPORT | | [id number] ANTONINO Gillespie [id number] | | | | | | Date: 01/03/2012 | | | | | | Attending Surgeon: Thor Ho M.D. | | | | | | Teacher Of The Handicapped(s): Mil Castaneda M.D. | | | | [...] | 5. Disposition: Discharge to home versus half-way facility after | | removal of wound [...] | 60 - 99 mg/dL | [facility] - | | | GLUCOSE, | | [...] | [facility] | [address] | [place], [place] | | | KARLY [place] OF [place] | [address] | [address] | | | TESTS | | | [...] | + + + + + | [facility] | [address] | [place] [address] | | | PATHOLOGY | [address] [...] | + + + + + | [facility] DEPARTMENT OF | [address] | [place] [address] | | | PATHOLOGY | [address] [...] | | | | | chaz / Virgen | | | | | | Jessica 01/03/2012 | | | | | | 10:59AM | | | | + + + + + + + + | Specimen | + + | | + + + +---------+ + + | Performing | Address | City/State/Zipcode | Phone Number | | Organization | | | | + +---------+ + + | [facility] DEPARTMENT OF | | | [...] + + + + + | [place] [facility]PARTMENT | [address] | [place] [address] | | | PATHOLOGY | [address] [...] view image for the detailed interpretation from [employer] results. | CARDIOLOGY | + + + + + + + + | Performing | Address | City/State/Zipcode | Phone Number | | Organization | | | | + + + + + | [facility] DEPT OF | [address] | [place] | | | CARDIOLOGY | [address] | [address] | | + + + + + [...] view image for the detailed interpretation from [employer] results. | CARDIOLOGY | + + + + + + + + | Performing | Address | City/State/Zipcode | Phone Number | | Organization | | | | + + + + + | [facility] DEPT OF | [address] | [place], [place] | | | CARDIOLOGY | [address] | [address] | | + + + + + [...] | | | | | signed / Praneeth | | | | | [...] | + + + + + | [facility] | [address] | [place] [address] | | | PATHOLOGY | [address] [...] | | | | | chaz / Alejandro | | | | | [...] | [facility] DEPARTMENT OF | [address] | [place] [address] | | | PATHOLOGY | [address] [...] | + + + + + | [facility] | [address] | [place] [address] | | | PATHOLOGY | [address] [...] | | | DEPARTMENT | | | CYPRIOT | | | OF | | | [...] | [facility] DEPARTMENT OF | [address] | [place] [address] | | | PATHOLOGY | [address] [...] | [facility] DEPARTMENT OF | [address] | [place] [address] | | | PATHOLOGY | [address] [...] | acetaminophen (aka TYLENOL) | Given | 01/04/20 | 650 mg | | | | tablet 325-650 mg 325-650 mg, | | 12 2:03 | | | | | oral, EVERY 4 HOURS NEEDED, | | AM PDT | | | | | Starting 01/02/12 at 1719, | | | | | | | Until 01/04/12 at 1002, mild | | | | | | | pain | | | | | | + +--------+ +--------+------+------+ +-------+ +--------+---+---+ | Given | 01/03/20 | 650 mg | | | | | 12 8:11 | | | | | | PM PDT | | | | +-------+ +--------+---+---+ | Given | 01/02/20 | 650 mg | | | | | 12 7:05 | | | | | | PM PDT | | | | +-------+ +--------+---+---+ +---+---+ | | | +---+---+ + +-------+ +--------+---+---+ | acetaminophen (aka TYLENOL) | Given | 01/05/20 | 650 mg | | | | tablet 650 mg 650 mg, oral, | | 12 10:10 | | | | | EVERY 6 HOURS, First dose (after | | AM PDT | | | | | last modification) on Mon01/04/12 | | | | | | | at 1100, Until Discontinued | | | | | | + +-------+ +--------+---+---+ +-------+ +--------+---+---+ | Given | 01/05/20 | 650 mg | | | | | 12 5:41 | | | | | | AM PDT | | | | +-------+ +--------+---+---+ | Given | 01/04/20 | 650 mg | | | | | 12 10:35 | | | | | | PM PDT | | | | +-------+ +--------+---+---+ +---+---+ | | | +---+---+ + +-------+ +--------+---+---+ | ascorbic acid tablet 500 mg | Given | 01/05/20 | 500 mg | | | | 500 mg, oral, TWICE DAILY, First | | 12 10:10 | | | | | dose on Mon01/04/12 at 1100, | | AM PDT | | | | | Until Discontinued | | | | | | + +-------+ +--------+---+---+ +-------+ +--------+---+---+ | Given | 01/04/20 | 500 mg | | | | | 12 10:36 | | | | | | PM PDT | | | | +-------+ +--------+---+---+ | Given | 01/04/20 | 500 mg | | | | | 12 10:10 | | | | | | AM PDT | | | | +-------+ +--------+---+---+ +---+---+ | | | +---+---+ + +---------+ +-----+--------+---+ | ceFAZolin (aka ANCEF) injection | New Bag | 01/05/20 | 1 g | mL/hr | | | 1 g 1 g, intravenous, EVERY 8 | | 12 10:10 | | | | | HOURS, 18 doses, First dose on | | AM PDT | | | | | 01/03/12 at 1800, Last dose on | | | | | | | 01/09/12 at 1000 | | | | | | + +---------+ +-----+--------+---+ +---------+ +-----+--------+---+ | New Bag | 01/05/20 | 1 g | mL/hr | | | | 12 3:38 | | | | | | AM PDT | | | | +---------+ +-----+--------+---+ | New Bag | 01/04/20 | 1 g | mL/hr | | | | 12 6:15 | | | | | | PM PDT | | | | +---------+ +-----+--------+---+ +---+---+ | | | +---+---+ + +---------+ +-----+--------+---+ | ceFAZolin (aka ANCEF) IV (pyxis | New Bag | 01/02/20 | 1 g | mL/hr | | | minibag+) 1 g 1 g, intravenous, | | 12 3:10 | | | | | ONCE, 1 dose, 01/02/12 at | | PM PDT | | | | | 1515 | | | | | | + +---------+ +-----+--------+---+ +---+---+ | | | +---+---+ + +-------+ +-------+---+---+ | enoxaparin (aka LOVENOX) | Given | 01/05/20 | 40 mg | | | | injection 40 mg 40 mg, | | 12 12:34 | | | | | subcutaneous, EVERY NOON, First | | PM PDT | | | | | dose on Mon01/04/12 at 1200, | | | | | | | Until Discontinued | | | | | | + +-------+ +-------+---+---+ +-------+ +-------+---+---+ | Given | 01/04/20 | 40 mg | | | | | 12 12:05 | | | | | | PM PDT | | | | +-------+ +-------+---+---+ +---+---+ | | | +---+---+ + +---------+ +--------+--------+---+ | fentaNYL citrate (PF) (aka | New Bag | 01/03/20 | 50 mcg | mL/hr | | | SUBLIMAZE) injection 25 mcg 25 | | 12 1:20 | | | | | mcg, intravenous, POSTPROCEDURE | | PM PDT | | | | | PRN, Starting Tu01/03/12 at | | | | | | | 0806, Until Mon01/03/12 at 1534, | | | | | | | moderate pain | | | | | | + +---------+ +--------+--------+---+ +---------+ +--------+--------+---+ | New Bag | 01/03/20 | 50 mcg | mL/hr | | | | 12 1:15 | | | | | | PM PDT | | | | +---------+ +--------+--------+---+ | New Bag | 01/03/20 | 25 mcg | mL/hr | | | | 12 12:50 | | | | | | PM PDT | | | | +---------+ +--------+--------+---+ + +---+ | | | + +---+ | fentaNYL citrate (PF) (aka | | | SUBLIMAZE) injection 1 dose, | | | Starting Mon01/03/12 at 1242, | | | Until Mon01/03/12 at 1245 | | + +---+ | | | + +---+ + +-------+ +--------+---+---+ | gabapentin (aka NEURONTIN) | Given | 01/05/20 | 300 mg | | | | capsule 300 mg 300 mg, oral, | | 12 10:10 | | | | | THREE TIMES DAILY, First dose on | | AM PDT | | | | | 01/04/12 at 1600, Until | | | | | | | Discontinued | | | | | | + +-------+ +--------+---+---+ +-------+ +--------+---+---+ | Given | 01/04/20 | 300 mg | | | | | 12 10:35 | | | | | | PM PDT | | | | +-------+ +--------+---+---+ | Given | 01/04/20 | 300 mg | | | | | 12 3:22 | | | | | | PM PDT | | | | +-------+ +--------+---+---+ +---+---+ | | | +---+---+ + +---------+ +--------+--------+---+ | gentamicin (aka GARAMYCIN) IV | New Bag | 01/04/20 | 400 mg | mL/hr | | | 400 mg 400 mg, intravenous, | | 12 12:05 | | | | | EVERY 24 HOURS, 1 dose, First | | PM PDT | | | | | dose on Mon01/04/12 at 1200 | | | | | | + +---------+ +--------+--------+---+ +---+---+ | | | +---+---+ + +---------+ +--------+--------+---+ | HYDROmorphone (aka DILAUDID) | Bag | 01/05/20 | 0.6 mg | mL/hr | | | injection 0.2-0.6 mg 0.2-0.6 mg, | | 12 4:17 | | | | | intravenous, EVERY 2 HOURS | | AM PDT | | | | | NEEDED, Starting 01/02/12 at | | | | | | | 1719, Until [place] 01/05/12 at 2247, | | | | | | | moderate pain | | | | | | + +---------+ +--------+--------+---+ +---------+ +--------+--------+---+ | New Bag | 01/02/20 | 0.6 mg | mL/hr | | | | 12 8:19 | | | | | | PM PDT | | | | +---------+ +--------+--------+---+ | New Bag | 01/02/20 | 0.6 mg | mL/hr | | | | 12 5:39 | | | | | | PM PDT | | | | +---------+ +--------+--------+---+ +---+---+ | | | +---+---+ + +---------+ +-------+-------+---+ | lactated ringers IV 100 mL/hr, | New Bag | 01/03/20 | 100 | 100 | | | intravenous, CONTINUOUS, | | 12 5:10 | mL/hr | mL/hr | | | Starting 01/03/12 at 0015, | | PM PDT | | | | | Until [facility] 01/05/12 at 2247 | | | | | | + +---------+ +-------+-------+---+ +---------+ +-------+-------+---+ | New Bag | 01/03/20 | 100 | 100 | | | | 12 2:00 | mL/hr | mL/hr | | | | PM PDT | | | | +---------+ +-------+-------+---+ | New Bag | 01/02/20 | 100 | 100 | | | | 12 11:44 | mL/hr | mL/hr | | | | PM PDT | | | | +---------+ +-------+-------+---+ +---+---+ | | | +---+---+ + +---------+ +------+--------+---+ | morphine injection Inj 4-8 mg | New Bag | 01/02/20 | 4 mg | mL/hr | | | 4-8 mg, intravenous, EVERY 10 | | 12 4:17 | | | | | MINUTES NEEDED, 5 doses, | | PM PDT | | | | | Starting Mon01/02/12 at 1432, | | | | | | | Until Mon01/02/12 at 1719, | | | | | | | moderate pain | | | | | | + +---------+ +------+--------+---+ +---------+ +------+--------+---+ | New Bag | 01/02/20 | 4 mg | mL/hr | | | | 12 3:09 | | | | | | PM PDT | | | | +---------+ +------+--------+---+ +---+---+ | | | +---+---+ + +---------+ +------+--------+---+ | ondansetron (aka ZOFRAN) | New Bag | 01/02/20 | 4 mg | mL/hr | | | injection 4 mg 4 mg, | | 12 3:10 | | | | | intravenous, ONCE, 1 dose, Mon | | PM PDT | | | | | 01/02/12 at 1515 | | | | | | + +---------+ +------+--------+---+ +---+---+ | | | +---+---+ + +---------+ +------+--------+---+ | ondansetron (aka ZOFRAN) | New Bag | 01/04/20 | 4 mg | mL/hr | | | injection 4 mg 4 mg, | | 12 10:10 | | | | | intravenous, EVERY 12 HOURS | | AM PDT | | | | | NEEDED, Starting 01/02/12 at | | | | | | | 1719, Until [place] 01/05/12 at 2247, | | | | | | | nausea/vomiting | | | | | | + +---------+ +------+--------+---+ +---------+ +------+--------+---+ | New Bag | 01/03/20 | 4 mg | mL/hr | | | | 12 6:19 | | | | | | AM PDT | | | | +---------+ +------+--------+---+ | New Bag | 01/02/20 | 4 mg | mL/hr | | | | 12 5:39 | | | | | | PM PDT | | | | +---------+ +------+--------+---+ +---+---+ | | | +---+---+ + +-------+ +-------+---+---+ | oxyCODONE immediate release | Given | 01/05/20 | 15 mg | | | | (aka ROXICODONE) tablet 5-15 mg | | 12 11:43 | | | | | 5-15 mg, oral, EVERY 3 HOURS | | AM PDT | | | | | NEEDED, Starting 01/02/12 at | | | | | | | 1719, Until Mon01/05/12 at 2247, | | | | | | | severe pain | | | | | | + +-------+ +-------+---+---+ +-------+ +-------+---+---+ | Given | 01/05/20 | 15 mg | | | | | 12 8:49 | | | | | | AM PDT | | | | +-------+ +-------+---+---+ | Given | 01/05/20 | 5 mg | | | | | 12 4:35 | | | | | | AM PDT | | | | +-------+ +-------+---+---+ +---+---+ | | | +---+---+ + +---------+ +---------+--------+---+ | piperacillin-tazobactam (aka | New Bag | 01/02/20 | 3.375 g | mL/hr | | | ZOSYN) IV 3.375 g 3.375 g, | | 12 5:05 | | | | | intravenous, ONCE, 1 dose, Mon | | PM PDT | | | | | 01/02/12 at 1700 | | | | | | + +---------+ +---------+--------+---+ +---+---+ | | | +---+---+ + +---------+ +---------+--------+---+ | piperacillin-tazobactam (aka | New Bag | 01/03/20 | 3.375 g | mL/hr | | | ZOSYN) IV 3.375 g 3.375 g, | | 12 5:09 | | | | | intravenous, EVERY 6 HOURS, First | | AM PDT | | | | | dose on Mon01/02/12 at 2300, | | | | | | | Until Discontinued | | | | | | + +---------+ +---------+--------+---+ +---------+ +---------+--------+---+ | New Bag | 01/02/20 | 3.375 g | mL/hr | | | | 12 11:44 | | | | | | PM PDT | | | | +---------+ +---------+--------+---+ +---+---+ | | | +---+---+ + + + +---+ +---+ | ropivacaine 0.2 % in NaCl 0.9 % | Rate/Dos | 01/05/20 | | 15 mL/hr | | | peripheral nerve block (CADD | e Change | 12 5:43 | | | | | PUMP) injection, CONTINUOUS, | | AM PDT | | | | | Starting 01/03/12 at 1415, | | | | | | | Until [facility] 01/05/12 at 2247 | | | | | | + + + +---+ +---+ + + +---+ +---+ | Rate/Dose Change | 01/05/20 | | 10 mL/hr | | | | 12 4:24 | | | | | | AM PDT | | | | + + +---+ +---+ | New Bag | 01/05/20 | | 6 mL/hr | | | | 12 3:38 | | | | | | AM PDT | | | | + + +---+ +---+ +---+---+ | | | +---+---+ + +-------+ + +---+---+ | senna-docusate (ml GILBERT S) | Given | 01/05/20 | 1 tablet | | | | 8.6-50 mg 1 Tab 1 tablet, oral, | | 12 10:10 | | | | | TWICE DAILY, First dose on Mon | | AM PDT | | | | | 01/02/12 at 2100, Until | | | | | | | Discontinued | | | | | | + +-------+ + +---+---+ +-------+ + +---+---+ | Given | 01/04/20 | 1 tablet | | | | | 12 10:35 | | | | | | PM PDT | | | | +-------+ + +---+---+ | Given | 01/04/20 | 1 tablet | | | | | 12 10:10 | | | | | | AM PDT | | | | +-------+ + +---+---+ +---+---+ | | | +---+---+ + +-------+ +-------+---+---+ | simethicone chew (aka MYLICON) | Given | 01/05/20 | 80 mg | | | | tablet 80 mg 80 mg, oral, THREE | | 12 4:35 | | | | | TIMES DAILY NEEDED, Starting | | AM PDT | | | | | 01/02/12 at 1719, Until [place] | | | | | | | 01/05/12 at 2247, bloating | | | | | | + +-------+ +-------+---+---+ +---+---+ | | | +---+---+ documented in this encounter
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
--- OUTSIDE RECORDS SUMMARY | ~2019-07-17 | XMS | Encounter Summary ---
Demographics + + + | Address | [address] | | | [place] [address] | + + + | Home Phone [...] Team Providers + +------+ + | Care Property Preservation Specialist Name | Role | Phone | + +------+ + | Erich Morales | PCP | | + +------+ + Encounter Details +--------+ + + + + | Date | Type | Department | Care Team | Description | +--------+ + + + + | 12/07/ | Telephone | Orthopaedics at | Thor Ho MD | | | 2012 | | [facility] [address] | | | | | [address] | | | | | | [address] | | | | | | [place] | | | | | | [address] | | | | | | [phone] | | | +--------+ + + + [...]
--- OUTSIDE RECORDS SUMMARY | ~2019-07-17 | XMS | Encounter Summary ---
Demographics + + + | Address | [address] | | | [place] [address] | + + + | Home Phone | | + + + | Preferred Language | Unknown | + + + | Marital Status | | + + + | Yazidi Affiliation | NRP | + + + [...] Providers + +------+ + | Care Ventilating Expert Name | Role | Phone | + [...] AFTER-CATARACT, | | 2005 | Visit | [facility] | Raffi Patel MD [address] | OBSCURING VISION, | | | | Mary Shelton [address] | rigth eye (Primary | | | | [address] | [place], [place] | Dx) | | | | Mailcode: [facility] | [address] | | | | | [place] [address] | [phone] | | | | | [phone] | | | +--------+---------+ + + + [...] Muñiz was seen in the [facility] today, 02/21/2006, for ultrasound [...]
--- OUTSIDE RECORDS SUMMARY | ~2019-07-17 | XMS | Encounter Summary ---
Demographics + + + | Address | [address] | | | [place] [address] | + + + | Home Phone | | + + + | Preferred Language | Unknown | + + + | Marital Status | | + + + | Muslim Affiliation | NRP | + + + [...] Team Providers + +------+ + | Care Health Coach Name | Role | Phone | + +------+ + PCP | Unavailable | + +------+ + Encounter Details +--------+ + + + + | Date | Type | Department | Care Team | Description | +--------+ + + + + | 03/09/ | Documentati | [facility] | Shana Dodson MD | | | 2005 | on | [address] | | | | | | [place] Mailcode: | | | | | | [place], [place] | | | | | | [address] | | | +--------+ + + + [...]
--- OUTSIDE RECORDS SUMMARY | ~2019-07-17 | XMS | Encounter Summary ---
Demographics + + + | Address | [address] | | | [place] [address] | + + + | Home Phone | | + + + | Preferred Language | Unknown | + + + | Marital Status | | + + + | Pentecostal Affiliation | NRP | + + + | Race | White | + + + | Ethnic Group | Not or | + + + Author + + + | Author | [facility] | + + + | Organization | [facility] | + + + | Address | Unknown | + + + | Phone | Unavailable | + + + Support + + +---------+ + | Name | Relationship | Address | Phone | + + +---------+ + | Soledad Muñiz | ECON | , [place] | | + + +---------+ + Care Team Providers + +------+ + | Care Service Girl Name | Role | Phone | + +------+ + PCP | Unavailable | + +------+ + Encounter Details +--------+ + + + + | Date | Type | Department | Care Team | Description | +--------+ + + + + | 05/25/ | Documentati | [facility] | Shana Dodson MD | | | 2005 | on | [address] | | | | | | [place] Mailcode: | | | | | | [place], [place] | | | | | | [address] | | | +--------+ + + + [...]
--- OUTSIDE RECORDS SUMMARY | ~2019-07-17 | XMS | Encounter Summary ---
Demographics + + + | Address | [address] | | | [place] [address] | + + + | Home Phone [...] Team Providers + +------+ + | Care Division Controller Name | Role | Phone | + +------+ + | Tsering Mcdonald | PCP | | + +------+ + Reason for Visit Consultation (Routine) +--------+--------+ + + + + | Status | Reason | Specialty | Diagnoses / | Referred By | Referred To | | | | | Procedures | Contact | Contact | +--------+--------+ + + + + | Closed | | Orthopedics | Diagnoses | Non-[facility] | [place], | | | | | Laceration | Epic Dept | Harjinder Aguilar MD | | | | | of right | | [address] [facility] | | | | | hand right | | [address] | | | | | hand | | [address] [place], | | | | | laceration. | | [place] | | | | | | | [address] | | | | | | | Phone: | | | | | | | [phone] | | | | | | | Fax: | | | | | | | [phone] | +--------+--------+ + + + + Encounter Details +--------+---------+ + + + | Date | Type | Department | Care Team | Description | +--------+---------+ + + + | 10/29/ | Office | Orthopaedics at | Syeda Alba PA | Laceration (Primary | | 2010 | Visit | [facility] [address] | [address] | Dx) | | | | Ave Mailcode: [address] | [place], [place] | | | | | [place] [facility] | [address] | | | | | and Healing, | [phone] | | | | | | | | | | | Floor [place], [place] | | | | | | [address] | | | | | | [phone] | | | +--------+---------+ + + + [...] documented as of this encounter Progress Notes Syeda Alba PA - 10/29/2010 8:49 PM PDTPatient did not attend scheduled [facility] documented in this encounter Plan of Treatment Not on filedocumented as of this encounter Visit Diagnoses + + | Diagnosis | + + | Laceration - Primary Open wound(s) (multiple) of unspecified site(s), without mention | | of complication | + + documented in this encounter"
--- OUTSIDE RECORDS SUMMARY | ~2019-07-17 | XMS | Encounter Summary ---
Demographics + + + | Address | [address] | | | [place] [address] | + + + | Home Phone [...] + + + | Author | [facility] | + + + | Organization | [facility] | + + + | Address | Unknown | + + + | Phone | Unavailable | + + + Support + + +---------+ + | Name | Relationship | Address | Phone | + + +---------+ + | Soledad Muñiz | ECON | , [place] | | + + +---------+ + Care Team Providers + +------+ + | Care Registered Midwife Name | Role | Phone | + [...] | Telephone | Orthopaedics at | Thor oH MD | Refill Encounters | | 2011 | | [facility] [address] | | | | | | [address] | | | | | | [facility] [address] | | | | | | [place] | | | | | | [address] | | | | | | [phone] | | | +--------+ + + + [...]
--- OUTSIDE RECORDS SUMMARY | ~2019-07-17 | XMS | Encounter Summary ---
Demographics + + + | Address | [address] | | | [place] [address] | + + + | Home Phone [...] Team Providers + +------+ + | Care Field Coordinator Name | Role | Phone | + [...] | [address] | Micheline Beck[place], | | | | | [place], [place] | [place] [address] | | | | | [address] | [phone] | | | | | | | [...] | | + +---------+ + + | [facility] DEPARTMENT OF | | | | | RADIOLOGY | | | | + +---------+ + + documented in this encounter Visit Diagnoses Not on filedocumented in this encounter"
--- OUTSIDE RECORDS SUMMARY | ~2019-07-17 | XMS | Encounter Summary ---
Demographics + + + | Address | [address] | | | [place] [address] | + + + | Home Phone [...] Author + + + | Author | [facility] | + + + | Organization | [facility] | + + + | Address | Unknown | + + + | Phone | Unavailable | + + + Support + + +---------+ + | Name | Relationship | Address | Phone | + + +---------+ + | Soledad Muñiz | ECON | , [place] | | + + +---------+ + Care Team Providers + +------+ + | Care Paper Cutting Machine Operator Name | Role | Phone [...] | | of right | | [address] [facility] | | | | | hand right | | [address] | | | | | hand | | [address] [place], | | | | | lac[place]. | | [place] | | | | | | | [address] | | | | | | | Phone: | | | | | | | [phone] | | | | | | | Fax: | | | | | | | [phone] | +--------+--------+ + + + + Encounter Details +--------+---------+ + + + | Date | Type | Department | Care Team | Description | +--------+---------+ + + + | 10/29/ | Office | Orthopaedics at | Syeda Alba PA | Laceration (Primary | | 2010 | Visit | [place] [address] | [address] | Dx) | | | | Ave Mailcode: [address] | [place], [place] | | | | | [place] for [facility] | [address] | | | | | and Healing, | [phone] | | | | | | | | | | | Floor [place], [place] | | | | | | [address] | | | | | | [phone] | | | +--------+---------+ + + + [...] PM PDTPatient did not attend scheduled [facility] documented in this encounter Plan of Treatment Not on filedocumented as of this encounter Visit Diagnoses + + | Diagnosis | + + | Laceration - Primary Open wound(s) (multiple) of unspecified site(s), without mention | | of complication | + + documented in this encounter"
--- OUTSIDE RECORDS SUMMARY | ~2019-07-17 | XMS | Encounter Summary ---
Demographics + + + | Address | [address] | | | [place] [address] | + + + | Home Phone | | + + + | Preferred Language | Unknown | + + + | Marital Status | | + + + | Confucianist Affiliation | NRP | + + + | Race | White | + + + | Ethnic Group | Not or | + + + Author + + + | Author | [facility] | + + + | Organization | [facility] | + + + | Address | Unknown | + + + | Phone | Unavailable | + + + Support + + +---------+ + | Name | Relationship | Address | Phone | + + +---------+ + | Soledad Muñiz | ECON | , [place] | | + + +---------+ + Care Team Providers + +------+ + | Care Bowling Ball Assembler Name | Role | Phone | [...] Refill Encounters | | 2012 | | [facility] [address] | | | | | | [address] | | | | | | [facility] [address] | | | | | | [place] | | | | | | [address] | | | | | | [phone] | | | +--------+ + + + [...]
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
--- OUTSIDE RECORDS SUMMARY | ~2019-07-17 | XMS | Encounter Summary ---
Demographics + + + | Address | [address] | | | [place] [address] | + + + | Home Phone | | + + + | Preferred Language | Unknown | + + + | Marital Status | | + + + | Jehovah'S Witness Affiliation | NRP | + + + | Race | White | + + + | Ethnic Group | Not or | + + + Author + + + | Author | [facility] | + + + | Organization | [facility] | + + + | Address | Unknown | + + + | Phone | Unavailable | + + + Support + + +---------+ + | Name | Relationship | Address | Phone | + + +---------+ + | Soledad Muñiz | ECON | , [place] | | + + +---------+ + Care Team Providers + +------+ + | Care Crane Rigger Name | Role | Phone | + [...] Pavilion | | | | | | [place], [place] | | | | | | [address] | | | | | | [phone] | | | +--------+ + + + [...]
--- OUTSIDE RECORDS SUMMARY | ~2019-07-17 | XMS | Encounter Summary ---
Demographics + + + | Address | [address] | | | [place] [address] | + + + | Home Phone | | + + + | Preferred Language | Unknown | + + + | Marital Status | | + + + | Jew Affiliation | NRP | + + + | Race | White | + + + | Ethnic Group | Not or | + + + Author + + + | Author | [facility] | + + + | Organization | [facility] | + + + | Address | Unknown | + + + | Phone | Unavailable | + + + Support + + +---------+ + | Name | Relationship | Address | Phone | + + +---------+ + | Soledad Muñiz | ECON | , [place] | | + + +---------+ + Care Team Providers + +------+ + | Care Protohistorian Name | Role | Phone | + [...] | | 2012 | | [facility] [address] | | | | | | [address] | | | | | | [facility] [address] | | | | | | [place] | | | | | | [address] | | | | | | [phone] | | | +--------+ + + + [...]
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
--- OUTSIDE RECORDS SUMMARY | ~2019-07-17 | XMS | Encounter Summary ---
Demographics + + + | Address | [address] | | | [place] [address] | + + + | Home Phone [...] Team Providers + +------+ + | Care Alterations Workroom Clerk Name | Role | Phone | [...] + + | 01/01/ | Hospital | [facility] [address] | Alexis Khan MD | | | 2011 - | Encounter | [address] | [address] | | | | | [place], | [address] | | | 01/04/ | | [place] [address] | [place], [place] | | | 2011 | | [phone] | [address] | | | | | | [phone] | | | | | | | | | | | | Jaron Castro MD | | | | | | [address] | | | | | | [facility]he[facility] | | | | | | [place] [address] | | | | | | [phone] | | | | | | | [...] might be different fr om the original. [facility] DEPARTMENT OF ORTHOPAEDICS & REHABILITATION INPATIENT HOSPITAL DISCHARGE SUMMARY & INTERDISCIPLINARY INSTRUCTIONS Patient: Jaron Muñiz CSN: [id number] Admission Date: 01/02/2012 Discharge Date: 01/05/2012 Attending Physician: Thor Ho MD PCP: No Pcp Per PATIENT Service: [facility] Orthopaedics & Rehabilitation Diagnoses Principal Final [...] management. He will remain nonweightbearing on the [facility] lower extremity until further evaluation [...] e. Condition on Discharge Good Destination: Destination: longterm facility Discharge Medication List as of 01/05/2012 [...] (MORPHINE, PF, INJ) Comments: Reason for Stopping: [facility] Orthopaedic Service Pain Policy At the [...] NO EXCEPTIONS. Other Discharge Orders & Instructions [facility] DEPARTMENT OF ORTHOPAEDICS & REHABILITATION CARE INSTRUCTIONS FROM YOUR ORTHOPAEDIC SURGEON Do not drive if taking narcotic pain medications. HOW TO REACH YOUR ORTHOPAEDIC TEAM WITH QUESTIONS, CONCERNS, OR NEW SYMPTOMS: During the workday (M-F 8-5), please call . Someone from your orthopaedic te am will return your call shortly. After hours and weekend, please call and ask the electric pile driver operator the page the ortho paedic resident student education specialist. Always call if anything should come up. [...] report these symptoms immediately to your physician. [facility] ORTHOPAEDIC PAIN MEDICATION POLICY (ABRIDGED): At [...] Condition on Discharge: Improved Discharging Patient To: Custodial Facilit Date and Time of Discharge Summary Completion: 01/05/2012, 5:46 PM Discharging Provider: ASHLEY MARTEL MD Discharging Attending: Thor Ho MD Thank you for the opportunity to take care of Jaron Muñiz during this inpatient sta y, it has been our pleasure. ASHLEY MARTEL MD 01/05/2012, 5:46 PM [facility] Department of Orthopaedics & Rehabilitation [address] [facility] Mail Code: [id number] Angelita JOYA [phone] Pager: [phone] documented in this enco unter Medications at [...] with the above documentation. Thor Ho MD Resin Maker Orthopaedic Trauma [facility] Department of Orthopaedics hjolynnSadia viverosEMIR - [...] Intravenous Q2H PRN 0.6 m g (01/05/12 6922) naloxone (aka NARCAN) injection Intravenous PRN ondansetron [...] pain. The most common side effects are MAIL CLERKS SUPERVISOR effects of sedation, cognitive impairme nt, and [...] MD Ortho. SADIA URIBE NP BILLING INFORMATION [facility] DEPARTMENT: [id number] Place of Service:- Inpatient Date of Service: 01/05/2012 CSN: [id number] Suggested Modifier: None Suggested CPT: 45782 - [place] [facility],MATTHIEU I Mil Sen MD [...] Ortho Trauma SADIA URIBE NP BILLING INFORMATION [facility] DEPARTMENT: [id number] Place of Service:- Inpatient Date of Service: 01/04/2012 CSN: [id number] Suggested Modifier: None Suggested CPT: 15201 - [place] [facility],LEVL I IASeAlexis nicholas MD [...] PM PDT ORTHOPAEDIC OPERATIVE REPORT | | [id number] ANTONINO Gillespie [id number] | | | | | | Date: 01/03/2012 | | | | | | Attending Surgeon: Thor Ho M.D. | | | | | | Virtual Assistant For Advertisers(s): Mil Castaneda M.D. | | | | [...] | 5. Disposition: Discharge to home versus longterm facility after | | removal of wound [...] BRAY | [address] | [place], [place] | | | [facility] [place] [facility] [place] | [address] | [address] | | | TESTS | | | [...] | + + + + + | [facility] | [address] | [place] [address] | | | PATHOLOGY | [address] [...] | + + + + + | [facility] DEPARTMENT OF | [address] | [place] [address] | | | PATHOLOGY | [address] [...] | | + +---------+ + + | [facility] DEPARTMENT OF | | | [...] [place] DEPARTMENT | [address] | [place] [address] | | | PATHOLOGY | [address] [...] view image for the detailed interpretation from [employer] results. | CARDIOLOGY | + + + + + + + + | Performing | Address | City/State/Zipcode | Phone Number | | Organization | | | | + + + + + | [facility] DEPT OF | [address] | [place] | | | CARDIOLOGY | [address] | [address] | | + + + + + [...] view image for the detailed interpretation from [employer] results. | CARDIOLOGY | + + + + + + + + | Performing | Address | City/State/Zipcode | Phone Number | | Organization | | | | + + + + + | [facility] DEPT OF | [address] | [place], [place] | | | CARDIOLOGY | [address] | [address] | | + + + + + [...] | + + + + + | [facility] | [address] | [place] [address] | | | PATHOLOGY | [address] [...] DEPARTMENT OF | [address] | [place] [address] | | | PATHOLOGY | [address] [...] | + + + + + | [facility] | [address] | [place] [address] | | | PATHOLOGY | [address] [...] | | | DEPARTMENT | | | [place] | | | OF | | | [...] DEPARTMENT OF | [address] | [place] [address] | | | PATHOLOGY | [address] [...] DEPARTMENT OF | [address] | [place] [address] | | | PATHOLOGY | [address] [...] PDT | | | | | Until [facility] 01/05/12 at 2247 | | | [...] | | | | | | Until [facility] 01/05/12 at 2247 | | | [...]
--- OUTSIDE RECORDS SUMMARY | ~2019-07-17 | XMS | Encounter Summary ---
Demographics + + + | Address | [address] | | | [place] [address] | + + + | Home Phone [...] + + + | Author | [facility] | + + + | Organization | [facility] | + + + | Address | Unknown | + + + | Phone | Unavailable | + + + Support + + +---------+ + | Name | Relationship | Address | Phone | + + +---------+ + | Soledad Muñiz | ECON | , [place] | | + + +---------+ + Care Team Providers + +------+ + | Care Model Maker Plaster Name | Role | Phone | + [...] | +--------+ + + + + | 11/16/ | Telephone | Orthopaedics at | Thor Ho MD | Refill Encounters | | 2012 | | [facility] [address] | | | | | | [address] | | | | | | [facility] [address] | | | | | | [place] | | | | | | [address] | | | | | | [phone] | | | +--------+ + + + [...]
--- OUTSIDE RECORDS SUMMARY | ~2019-07-17 | XMS | Encounter Summary ---
Demographics + + + | Address | [address] | | | [place] [address] | + + + | Home Phone [...] + + + | Author | [facility] | + + + | Organization | [facility] | + + + | Address | Unknown | + + + | Phone | Unavailable | + + + Support + + +---------+ + | Name | Relationship | Address | Phone | + + +---------+ + | Soledad Muñiz | ECON | , [place] | | + + +---------+ + Care Team Providers + +------+ + | Care Salicylic Acid Blender Name | Role | Phone | + +------+ + PCP | Unavailable | + +------+ + Encounter Details +--------+ + + + + | Date | Type | Department | Care Team | Description | +--------+ + + + + | 09/11/ | ED Progress | Emergency Medicine | Report, Emergency | ED Progress Note | | 1996 | | [address] [facility] | Services | | | | Note-Transc | [address] | | | | | [address] | [place], [place] | | | | | | [address] | | | +--------+ + + + [...]
--- OUTSIDE RECORDS SUMMARY | ~2019-07-17 | XMS | Encounter Summary ---
Demographics + + + | Address | [address] | | | [place] [address] | + + + | Home Phone | | + + + | Preferred Language | Unknown | + + + | Marital Status | | + + + | Nondenominational Affiliation | NRP | + + + [...] Team Providers + +------+ + | Care Supervisor Extrusion Name | Role | Phone | + [...] Pavilion | | | | | | [place], [place] | | | | | | [address] | | | | | | [phone] | | | +--------+ + + + [...]
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
--- OUTSIDE RECORDS SUMMARY | ~2019-07-17 | XMS | Encounter Summary ---
Demographics + + + | Address | [address] | | | [place] [address] | + + + | Home Phone | | + + + | Preferred Language | Unknown | + + + | Marital Status | | + + + | Yazdanism Affiliation | Unknown | + + + | Race | Unknown | + + + | Ethnic Group | Unknown | + + + Author + + + | Author | [facility] | | | and [place] | + + + | Organization | [facility] | | | and [place] | [...] Team Providers + +------+ + | Care J2Ee Java Developer Name | Role | Phone | + +------+ + | Hemanth Raines MD | PCP | | + +------+ + Reason for Referral Evaluate & Treat (Routine) +--------+ + + + + + | Status | Reason | Specialty | Diagnoses / | Referred By | Referred To | | | | | Procedures | Contact | Contact | +--------+ + + + + + | Denied | Specialty | Cardiology | Diagnoses | Estephanie, | Donny | | | Services | | Chest pain, | MD Rizwan | MD Lior | | | Required | | unspecified | [address] | [address] | | | | | type | [address] [place] | [address] | | | | | Lightheadedn | [place], [place] | [place], | | | | | ess ER [facility] | [address] | [place] [address] | | | | | Procedures | Phone: | Phone: | | | | | REGISTERED NURSE RENAL | [phone] | [phone] | | | | | | Fax: | Fax: | | | | | | [phone] | [phone] | +--------+ + + + + + Reason for Visit + + + | Reason | Comments | + + + | Chest Pain | | + + + Encounter Details +--------+ + + + + | Date | Type | Department | Care Team | Description | +--------+ + + + + | 01/22/ | Emergency | [facility] | Rizwan Hummel MD | Chest pain, | | 2019 | | [facility] | [address] | unspecified type | | | | CENTER [address] | [place] | (Primary Dx); | | | | [place] | [address] | Lightheadedness | | | | [address] | | | | | | [phone] | | | +--------+ + + + [...] + + documented in this encounter Discharge Instructions Instructions Rizwan Hummel MD - 01/22/2019Follow-up with cardiology and your primary care jami ray. Start taking a daily aspirin 81 mg. Return for any worsening symptoms or go to [facility]. Drink plenty of fluids. Get up slowly. AttachmentsThe following attachments cannot be sent through Care Everywhere.Dizziness or Fa inting, Possible Causes of (Namibian)Chest Pain, Uncertain Cause (Namibian)documented in this encounter Medications at Time of Discharge + + + +---------+--------+ + | Medication | Sig | Dispensed | Refills | Start | End Date | | | | | | Date | | + + + +---------+--------+ + | lisinopril | Take 10 mg by mouth | | 0 | | | | (PRINIVIL, ZESTRIL) | Daily. | | | | | | 10 mg tablet | | | | | | + + + +---------+--------+ + documented as of this encounter Plan of Treatment + + +--------+ + + | Name | Type | Priori | Associated Diagnoses | Order Schedule | | | | ty | | | + + +--------+ + + | Cardiology [facility] | Outpatient | Routin | Chest pain, | Ordered: 01/22/2019 | | | Referral | e | unspecified type | | | | | | Lightheadedness | | + + +--------+ + + documented as of this encounter Procedures + +--------+ + + + | Procedure Name | Priori | Date/Time | Associated Diagnosis | Comments | | | ty | | | | + +--------+ + + + | CT HEAD WO CONTRAST | STAT | 01/22/2019 | | Results for this | | | | 8:47 PM | | procedure are in the | | | | PDT | | results section. | + +--------+ + + + | XR CHEST 2 VIEWS | STAT | 01/22/2019 | | Results for this | | | | 8:00 PM | | procedure are in the | | | | PDT | | results section. | + +--------+ + + + | RAINBOW BLOOD PANEL | STAT | 01/22/2019 | | Results for this | | | | 7:28 PM | | procedure are in the | | | | PDT | | results section. | + +--------+ + + + | EXTRA LAVENDER TOP | Routin | 01/22/2019 | | Results for this | | TUBE | e | 7:28 PM | | procedure are in the | | | | PDT | | results section. | + +--------+ + + + | EXTRA LAVENDER TOP | STAT | 01/22/2019 | | Results for this | | TUBE | | 7:28 PM | | procedure are in the | | | | PDT | | results section. | + +--------+ + + + | EXTRA GREEN TOP TUBE | Routin | 01/22/2019 | | Results for this | | | e | 7:28 PM | | procedure are in the | | | | PDT | | results section. | + +--------+ + + + | EXTRA GREEN TOP TUBE | STAT | 01/22/2019 | | Results for this | | | | 7:28 PM | | procedure are in the | | | | PDT | | results section. | + +--------+ + + + | EXTRA BLUE TOP TUBE | STAT | 01/22/2019 | | Results for this | | | | 7:28 PM | | procedure are in the | | | | PDT | | results section. | + +--------+ + + + | TROPONIN I | STAT | 01/22/2019 | | Results for this | | | | 7:28 PM | | procedure are in the | | | | PDT | | results section. | + +--------+ + + + | D-DIMER | STAT | 01/22/2019 | | Results for this | | | | 7:28 PM | | procedure are in the | | | | PDT | | results section. | + +--------+ + + + | CBC WITH | STAT | 01/22/2019 | | Results for this | | DIFFERENTIAL | | 7:28 PM | | procedure are in the | | | | PDT | | results section. | + +--------+ + + + | B TYPE NATRIURETIC | STAT | 01/22/2019 | | Results for this | | PEPTIDE | | 7:28 PM | | procedure are in the | | | | PDT | | results section. | + +--------+ + + + | COMPREHENSIVE | STAT | 01/22/2019 | | Results for this | | METABOLIC PANEL | | 7:28 PM | | procedure are in the | | | | PDT | | results section. | + +--------+ + + + | ECG 12 LEAD | STAT | 01/22/2019 | | Results for this | | | | 7:12 PM | | procedure are in the | | | | PDT | | results section. | + +--------+ + + + documented in this encounter Results CT Head wo Contrast (01/22/2019 8:47 PM PDT) + + | Specimen | + + | | + + + + + | Narrative | Performed At | + + + | UNENHANCED HEAD CT 01/22/2019 8:45 PM CLINICAL HISTORY: CHEST | [facility] | | PAIN COMPARISON: None TECHNIQUE: Axial unenhanced images | | | are performed through the head, along with coronal and sagittal | | | reformations. FINDINGS: The cerebral parenchyma, ventricles, | | | brainstem and cerebellum appear normal. Larsen-white differentiation | | | is maintained. A small high density foreign body is noted within or | | | along the inferior, posterior aspect of the right ocular globe. | | | Bilateral prosthetic ocular lenses are suggested. Left optic | | | drusen is suspected. There is localized soft tissue in the | | | subcutaneous tissues of the dorsal, midline suboccipital region which | | | is difficult to further characterize. No fracture is visible. The | | | imaged paranasal sinuses are well aerated along with the middle ear | | | cavities and paucity of bilateral mastoid air cells. IMPRESSION - | | | 1. NO EVIDENCE OF INTRACRANIAL DISEASE. 2. FOREIGN BODY OF | | | WITHIN OR ALONG THE RIGHT OPTIC GLOBE, AND SUSPECTED LEFT OPTIC | | | DRUSEN. 3. NON-SPECIFIC SOFT TISSUE DENSITY IN THE SUBCUTANEOUS | | | TISSUES OF THE DORSAL MIDLINE SUBOCCIPITAL REGION. THIS COULD | | | RELATE TO PREVIOUS TRAUMA. CLINICAL CORRELATION ADVISED. Images | | | were provided for interpretation on January 22, 2019 at 2055 hours. | | | Results were finalized at 2105 hours. Dictated and Signed by: | | | Marcos Peterson MD Electronically signed: 01/22/2019 9:01 PM | | + + + + + | Procedure Note | + + | Vinicio, Rad Results In - 01/22/2019 9:05 PM PDT UNENHANCED HEAD CT 01/22/2019 8:45 PM | | | | CLINICAL HISTORY: CHEST PAIN | | | | COMPARISON: None | | | | TECHNIQUE: Axial unenhanced images are performed through the head, along with | | coronal and sagittal reformations. | | | | FINDINGS: The cerebral parenchyma, ventricles, brainstem and cerebellum appear | | normal. Larsen-white differentiation is maintained. A small high density foreign | | body is noted within or along the inferior, posterior aspect of the right ocular | | globe. Bilateral prosthetic ocular lenses are suggested. Left optic drusen is | | suspected. There is localized soft tissue in the subcutaneous tissues of the | | dorsal, midline suboccipital region which is difficult to further characterize. | | No fracture is visible. The imaged paranasal sinuses are well aerated along | | with the middle ear cavities and paucity of bilateral mastoid air cells. | | | | IMPRESSION - | | 1. NO EVIDENCE OF INTRACRANIAL DISEASE. | | | | 2. FOREIGN BODY OF WITHIN OR ALONG THE RIGHT OPTIC GLOBE, AND SUSPECTED LEFT | | OPTIC DRUSEN. | | | | 3. NON-SPECIFIC SOFT TISSUE DENSITY IN THE SUBCUTANEOUS TISSUES OF THE DORSAL | | MIDLINE SUBOCCIPITAL REGION. THIS COULD RELATE TO PREVIOUS TRAUMA. CLINICAL | | CORRELATION ADVISED. | | | | Images were provided for interpretation on January 22, 2019 at 2055 hours. Results | | were finalized at 2105 hours. | | | | Dictated and Signed by: Marcos Peterson MD | | Electronically signed: 01/22/2019 9:01 PM | + + + +---------+ + + | Performing | Address | City/State/Zipcode | Phone Number | | Organization | | | | + +---------+ + + | [facility] | | | | + +---------+ + + XR Chest 2 Vws (01/22/2019 8:00 PM PDT) + + | Specimen | + + | | + + + + + | Narrative | Performed At | + + + | PA AND LATERAL CHEST 01/22/2019 8:00 PM CLINICAL HISTORY: chest | [facility] | | pain COMPARISON: None available FINDINGS: The | | | cardiomediastinal silhouette and pulmonary vasculature are | | | unremarkable. The lungs are clear, without visible pneumothorax or | | | pleural effusion. There is mild elevation/eventration of the right | | | hemidiaphragm. The bones and soft tissues are unremarkable. | | | IMPRESSION - 1. MILD ELEVATION/EVENTRATION OF THE RIGHT | | | HEMIDIAPHRAGM WITHOUT OTHER RADIOGRAPHIC EVIDENCE OF ACTIVE DISEASE | | | IN THE CHEST. Dictated and Signed by: Marcos Peterson MD | | | Electronically signed: 01/22/2019 8:13 PM | | + + + + + | Procedure Note | + + | Vinicio, Rad Results In - 01/22/2019 8:16 PM PDT PA AND LATERAL CHEST 01/22/2019 8:00 PM | | | | CLINICAL HISTORY: chest pain | | | | COMPARISON: None available | | | | FINDINGS: The cardiomediastinal silhouette and pulmonary vasculature are | | unremarkable. The lungs are clear, without visible pneumothorax or pleural | | effusion. There is mild elevation/eventration of the right hemidiaphragm. The | | bones and soft tissues are unremarkable. | | | | IMPRESSION - | | | | 1. MILD ELEVATION/EVENTRATION OF THE RIGHT HEMIDIAPHRAGM WITHOUT OTHER | | RADIOGRAPHIC EVIDENCE OF ACTIVE DISEASE IN THE CHEST. | | | | Dictated and Signed by: Marcos Peterson MD | | Electronically signed: 01/22/2019 8:13 PM | + + + +---------+ + + | Performing | Address | City/State/Zipcode | Phone Number | | Organization | | | | + +---------+ + + | [facility] | | | | + +---------+ + + B Type Natriuretic Peptide (01/22/2019 7:28 PM PDT) + +-------+ + + + | Component | Value | Ref Range | Performed | Pathologist | | | | | At | Signature | + +-------+ + + + | BNP | 3 | <100 pg/mL | [facility] | | | | | | [facility] | | | | | | [facility]ICAL | | | | | | CENTER - | | | | | | LABORATORY | | + +-------+ + + + + + | Specimen | + + | Blood | + + + + + + + | Performing | Address | City/State/Zipcode | Phone Number | | Organization | | | | + + + + + | [facility] | [address] | [place] | [phone] | | [facility] | | [address] | | | - LABORATORY | | | | + + + + + D-Dimer (01/22/2019 7:28 PM PDT) + + + + + + | Component | Value | Ref Range | Performed | Pathologist | | | | | At | Signature | + + + + + + | D-Dimer | 0.43Comment: This | <=0.50 ug/mL | [facility] | | | Quantitativ | quantitative D-Dimer | [facility] | [facility] | | | e | assay has been evaluated | | MEDICAL | | | | for screening for | | CENTER - | | | | venous thrombotic | | LABORATORY | | | | disease, and may be | | | | | | useful in ruling out, | | | | | | but not ruling in | | | | | | disease. Values less | | | | | | than 0.50 ug/mL [facility]U | | | | | | (Fibrinogen Equivalent | | | | | | Units) have a negative | | | | | | predictive value of | | | | | | approximately 95% for | | | | | | ruling out large | | | | | | pulmonary emboli or | | | | | | proximal deep vein | | | | | | thrombosis. Distal DVT | | | | | | are not excluded. An | | | | | | elevated D-dimer can be | | | | | | present in patients with | | | | | | liver disease, | | | | | | , eclampsia, | | | | | | heart disease and some | | | | | | cancers among other | | | | | | conditions. The presence | | | | | | of rheumatoid factor at | | | | | | a level >50 IU/mL may | | | | | | falsely elevate the | | | | | | determined D-dimer | | | | | | levels. | | | | + + + + + + + + | Specimen | + + | Blood | + + + + + + + | Performing | Address | City/State/Zipcode | Phone Number | | Organization | | | | + + + + + | [facility] | [address] | [place] | [phone] | | [facility] | | [address] | | | - LABORATORY | | | | + + + + + Troponin I (01/22/2019 7:28 PM PDT) + + + + + + | Component | Value | Ref Range | Performed | Pathologist | | | | | At | Signature | + + + + + + | Troponin I | <0.01Comment: | <0.06 ng/mL | [facility] | | | | Comment:Reference | | [facility] | | | | Ranges: 0.00-0.06 = | | MEDICAL | | | | NORMAL >0.06 = | | CENTER - | | | | SUSPICIOUS FOR | | LABORATORY | | | | MYOCARDIAL DAMAGE NOTE: | | | | | | Values greater than | | | | | | 0.78 ng/mL have been | | | | | | shown to be strongly | | | | | | associated with acute | | | | | | myocardial infarction. | | | | | | The [employer] | | | | | | Cardiology (ACC) | | | | | | recommends a decision | | | | | | limit of 0.06 ng/mL for | | | | | | this assay. Results | | | | | | greater than 0.06 can | | | | | | reflect a pre-infarct | | | | | | acute coronary syndrome, | | | | | | but can also reflect | | | | | | myocardial necrosis or | | | | | | injury that is not due | | | | | | to coronary artery | | | | | | disease. Some of these | | | | | | causes are sepsis, | | | | | | hypocolemia, atrial | | | | | | fibrillation, heart | | | | | | failure, pulmonary | | | | | | embolism, myocarditis, | | | | | | myocardial contusion, | | | | | | and renal failure. The | | | | | | diagnosis of myocardial | | | | | | infarction should be | | | | | | based on a combination | | | | | | of the patient's | | | | | | clinical presentation | | | | | | and the clinical | | | | | | laboratory test results | | | | | | (especially serial | | | | | | troponin levels). | | | | + + + + + + + + | Specimen | + + | Blood | + + + + + + + | Performing | Address | City/State/Zipcode | Phone Number | | Organization | | | | + + + + + | [facility] | [address] | [place] | [phone] | | [facility] | | [address] | | | - LABORATORY | | | | + + + + + Comprehensive Metabolic Panel (01/22/2019 7:28 PM PDT) + + + + + + | Component | Value | Ref Range | Performed | Pathologist | | | | | At | Signature | + + + + + + | Na | 134 (L) | 136 - 145 | [facility] | | | | | mmol/L | [facility] | | | | | | MEDICAL | | | | | | CENTER - | | | | | | LABORATORY | | + + + + + + | K | 3.8 | 3.4 - 5.1 | [facility] | | | | | mmol/L | [facility] | | | | | | MEDICAL | | | | | | CENTER - | | | | | | LABORATORY | | + + + + + + | Cl | 102 | 98 - 107 mmol/L | [facility] | | | | | | [facility] | | | | | | MEDICAL | | | | | | CENTER - | | | | | | LABORATORY | | + + + + + + | CO2 | 22 | 20 - 31 mmol/L | [facility] | | | | | | [facility] | | | | | | MEDICAL | | | | | | CENTER - | | | | | | LABORATORY | | + + + + + + | Anion Gap | 10 | 3 - 16 mmol/L | [facility] | | | | | | [facility] | | | | | | MEDICAL | | | | | | CENTER - | | | | | | LABORATORY | | + + + + + + | Glucose | 84 | 60 - 106 mg/dL | [facility] | | | | | | [facility] | | | | | | MEDICAL | | | | | | CENTER - | | | | | | LABORATORY | | + + + + + + | BUN | 16 | 9 - 23 mg/dL | [facility] | | | | | | [facility] | | | | | | MEDICAL | | | | | | CENTER - | | | | | | LABORATORY | | + + + + + + | Creatinine | 1.06 | 0.70 - 1.30 | [facility] | | | | | mg/dL | [facility] | | | | | | MEDICAL | | | | | | CENTER - | | | | | | LABORATORY | | + + + + + + | eGFR if not | >60Comment: GLOMERULAR | >=60 | [facility] | | | | FILTRATION | mL/min/1.73m2 | [facility] | | | MALAGASY | RATE,ESTIMATED | | MEDICAL | | | | mL/min/1.71q7Ejbf than | | CENTER - | | | | 60 Chronic kidney | | LABORATORY | | | | disease,if found over a | | | | | | 3-month period.Less than | | | | | | 15 Kidney failureFor | | | | | | | | | | | | Americans,multiply the | | | | | | calculated GFR by 1.21. | | | | | | | | | | + + + + + + | Calcium | 9.8 | 8.7 - 10.4 | [facility] | | | | | mg/dL | [facility] | | | | | | MEDICAL | | | | | | CENTER - | | | | | | LABORATORY | | + + + + + + | Albumin | 5.2 (H) | 3.2 - 4.8 g/dL | [facility] | | | | | | [facility] | | | | | | MEDICAL | | | | | | CENTER - | | | | | | LABORATORY | | + + + + + + | Bilirubin | 0.4 | 0.3 - 1.2 mg/dL | [facility] | | | Total | | | [facility] | | | | | | MEDICAL | | | | | | CENTER - | | | | | | LABORATORY | | + + + + + + | Total | 7.5 | 5.7 - 8.2 g/dL | [facility] | | | Protein | | | [facility] | | | | | | MEDICAL | | | | | | CENTER - | | | | | | LABORATORY | | + + + + + + | AST | 89 (H) | 0 - 34 U/L | [facility] | | | | | | [facility] | | | | | | MEDICAL | | | | | | CENTER - | | | | | | LABORATORY | | + + + + + + | ALT | 199 (H) | 10 - 49 U/L | [facility] | | | | | | [facility] | | | | | | MEDICAL | | | | | | CENTER - | | | | | | LABORATORY | | + + + + + + | Alkaline | 69 | 46 - 116 U/L | [facility] | | | Phosphatase | | | [facility] | | | | | | MEDICAL | | | | | | CENTER - | | | | | | LABORATORY | | + + + + + + | Globulin | 2.3 | 2.1 - 3.8 g/dL | [facility] | | | | | | [facility] | | | | | | MEDICAL | | | | | | CENTER - | | | | | | LABORATORY | | + + + + + + | Albumin/Ami | 2.3 (H) | 0.8 - 1.9 | [facility] | | | bulin Ratio | | | [facility] | | | | | | MEDICAL | | | | | | CENTER - | | | | | | LABORATORY | | + + + + + + | BUN/Creatin | 15.1 | | [facility] | | | ine Ratio | | | [facility] | | | | | | MEDICAL | | | | | | CENTER - | | | | | | LABORATORY | | + + + + + + + + | Specimen | + + | Blood | + + + + + + + | Performing | Address | City/State/Zipcode | Phone Number | | Organization | | | | + + + + + | [facility] | [address] | [place] | [phone] | | [facility] | | [address] | | | - LABORATORY | | | | + + + + + CBC with Differential (01/22/2019 7:28 PM PDT) + +-------+ + + + | Component | Value | Ref Range | Performed | Pathologist | | | | | At | Signature | + +-------+ + + + | WBC | 7.0 | 4.0 - 11.0 K/uL | [facility] | | | | | | [facility] | | | | | | MEDICAL | | | | | | CENTER - | | | | | | LABORATORY | | + +-------+ + + + | RBC | 5.16 | 4.30 - 5.70 | [facility] | | | | | M/uL | [facility] | | | | | | MEDICAL | | | | | | CENTER - | | | | | | LABORATORY | | + +-------+ + + + | Hemoglobin | 16.5 | 13.5 - 18.0 | [facility] | | | | | g/dL | [facility] | | | | | | MEDICAL | | | | | | CENTER - | | | | | | LABORATORY | | + +-------+ + + + | Hematocrit | 47.6 | 40.0 - 51.0 % | [facility] | | | | | | [facility] | | | | | | MEDICAL | | | | | | CENTER - | | | | | | LABORATORY | | + +-------+ + + + | MCV | 92.2 | 83.0 - 101.0 fL | [facility] | | | | | | [facility] | | | | | | MEDICAL | | | | | | CENTER - | | | | | | LABORATORY | | + +-------+ + + + | MCH | 32.0 | 28.0 - 35.0 pg | [facility] | | | | | | [facility] | | | | | | MEDICAL | | | | | | CENTER - | | | | | | LABORATORY | | + +-------+ + + + | MCHC | 34.7 | 32.0 - 36.0 | [facility] | | | | | g/dL | [facility] | | | | | | MEDICAL | | | | | | CENTER - | | | | | | LABORATORY | | + +-------+ + + + | RDW-CV | 12.6 | <15.0 % | [facility] | | | | | | [facility] | | | | | | MEDICAL | | | | | | CENTER - | | | | | | LABORATORY | | + +-------+ + + + | RDW-SD | 42.8 | 35.1 - 46.3 fL | [facility] | | | | | | [facility] | | | | | | MEDICAL | | | | | | CENTER - | | | | | | LABORATORY | | + +-------+ + + + | Platelet | 271 | 140 - 440 K/uL | [facility] | | | Count | | | [facility] | | | | | | MEDICAL | | | | | | CENTER - | | | | | | LABORATORY | | + +-------+ + + + | MPV | 9.9 | 6.5 - 12.4 fL | [facility] | | | | | | [facility] | | | | | | MEDICAL | | | | | | CENTER - | | | | | | LABORATORY | | + +-------+ + + + | % | 58.1 | 45.0 - 82.0 % | [facility] | | | Neutrophils | | | [facility] | | | | | | MEDICAL | | | | | | CENTER - | | | | | | LABORATORY | | + +-------+ + + + | % | 29.6 | 20.0 - 45.0 % | [facility] | | | Lymphocytes | | | [facility] | | | | | | MEDICAL | | | | | | CENTER - | | | | | | LABORATORY | | + +-------+ + + + | % Monocytes | 10.2 | 4.0 - 12.0 % | [facility] | | | | | | [facility] | | | | | | MEDICAL | | | | | | CENTER - | | | | | | LABORATORY | | + +-------+ + + + | % | 1.3 | 0.0 - 5.0 % | [facility] | | | Eosinophils | | | [facility] | | | | | | MEDICAL | | | | | | CENTER - | | | | | | LABORATORY | | + +-------+ + + + | % Basophils | 0.7 | 0.0 - 1.0 % | [facility] | | | | | | [facility] | | | | | | MEDICAL | | | | | | CENTER - | | | | | | LABORATORY | | + +-------+ + + + | % Immature | 0.1 | 0.0 - 0.4 % | [facility] | | | Granulocyte | | | [facility] | | | s | | | MEDICAL | | | | | | CENTER - | | | | | | LABORATORY | | + +-------+ + + + | Absolute | 4.03 | 1.80 - 8.50 | [facility] | | | Neutrophils | | K/uL | [facility] | | | | | | MEDICAL | | | | | | CENTER - | | | | | | LABORATORY | | + +-------+ + + + | Absolute | 2.06 | 0.60 - 3.20 | [facility] | | | Lymphocytes | | K/uL | [facility] | | | | | | MEDICAL | | | | | | CENTER - | | | | | | LABORATORY | | + +-------+ + + + | Absolute | 0.71 | 0.00 - 1.00 | [facility] | | | Monocytes | | K/uL | [facility] | | | | | | MEDICAL | | | | | | CENTER - | | | | | | LABORATORY | | + +-------+ + + + | Absolute | 0.09 | 0.00 - 0.40 | [facility] | | | Eosinophils | | K/uL | [facility] | | | | | | MEDICAL | | | | | | CENTER - | | | | | | LABORATORY | | + +-------+ + + + | Absolute | 0.05 | 0.00 - 0.10 | [facility] | | | Basophils | | K/uL | [facility] | | | | | | MEDICAL | | | | | | CENTER - | | | | | | LABORATORY | | + +-------+ + + + | Absolute | 0.01 | 0.00 - 0.03 | [facility] | | | Immature | | K/uL | [facility] | | | Granulocyte | | | MEDICAL | | | s | | | CENTER - | | | | | | LABORATORY | | + +-------+ + + + | % nRBC | 0 | 0 - 2 per 100 | [facility] | | | | | WBCs | [facility] | | | | | | MEDICAL | | | | | | CENTER - | | | | | | LABORATORY | | + +-------+ + + + | Absolute | 0.00 | 0.00 - 0.01 | [facility] | | | nRBC | | K/uL | [facility] | | | | | | MEDICAL | | | | | | CENTER - | | | | | | LABORATORY | | + +-------+ + + + + + | Specimen | + + | Blood | + + + + + + + | Performing | Address | City/State/Zipcode | Phone Number | | Organization | | | | + + + + + | [facility] | [address] | [place] | [phone] | | [facility] | | [address] | | | - LABORATORY | | | | + + + + + Extra Lavender Top Tube (01/22/2019 7:28 PM PDT) + +-------+ + + + | Component | Value | Ref Range | Performed | Pathologist | | | | | At | Signature | + +-------+ + + + | Extra | Done | | [facility] | | | [facility] | | | [facility] | | | Top Tube | | | MEDICAL | | | | | | CENTER - | | | | | | LABORATORY | | + +-------+ + + + + + | Specimen | + + | Blood | + + + + + + + | Performing | Address | City/State/Zipcode | Phone Number | | Organization | | | | + + + + + | [facility] | [address] | [place] | [phone] | | [facility] | | [id number] | | | - LABORATORY | | | | + + + + + Extra Green Top Tube (01/22/2019 7:28 PM PDT) + +-------+ + + + | Component | Value | Ref Range | Performed | Pathologist | | | | | At | Signature | + +-------+ + + + | Extra Green | Done | | [facility] | | [facility] | | [facility] | | | | | | [facility] | | | | | | CENTER - | | | | | | LABORATORY | | + +-------+ + + + + + | Specimen | + + | Blood | + + + + + + + | Performing | Address | City/State/Zipcode | Phone Number | | Organization | | | | + + + + + | [facility] | [address] | [place] | [phone] | | [facility] | | [id number] | | | - LABORATORY | | | | + + + + + Extra Lavender Top Tube (01/22/2019 7:28 PM PDT) + +-------+ + + + | Component | Value | Ref Range | Performed | Pathologist | | | | | At | Signature | + +-------+ + + + | Extra | Done | | [facility] | | | [facility] | | | [facility] | | | [facility] | | | [facility] | | | | | | CENTER - | | | | | | LABORATORY | | + +-------+ + + + + + | Specimen | + + | Blood | + + + + + + + | Performing | Address | City/State/Zipcode | Phone Number | | Organization | | | | + + + + + | [facility] | [address] | [place] | [phone] | | [facility] | | [address] | | | - LABORATORY | | | | + + + + + Extra Green Top Tube (01/22/2019 7:28 PM PDT) + +-------+ + + + | Component | Value | Ref Range | Performed | Pathologist | | | | | At | Signature | + +-------+ + + + | Extra Green | Done | | [facility] | | | Top [facility] | [facility] | [facility] - | | | | | | LABORATORY | | + +-------+ + + + + + | Specimen | + + | Blood | + + + + + + + | Performing | Address | City/State/Zipcode | Phone Number | | Organization | | | | + + + + + | [facility] | [address] | [place] | [phone] | | [facility] | | [address] | | | - LABORATORY | | | | + + + + + Extra Blue Top Tube (01/22/2019 7:28 PM PDT) + +-------+ + + + | Component | Value | Ref Range | Performed | Pathologist | | | | | At | Signature | + +-------+ + + + | Extra Blue | Done | | [facility] | | | Top Tube | | | [facility] | | | | | [facility] | | | | | | [facility] - | | | | | | LABORATORY | | + +-------+ + + + + + | Specimen | + + | Blood | + + + + + + + | Performing | Address | City/State/Zipcode | Phone Number | | Organization | | | | + + + + + | [facility] | [address] | [place] | [phone] | | [facility] | | [address] | | | - LABORATORY | | | | + + + + + ECG 12 lead (01/22/2019 7:12 PM PDT) + + + + + + | Component | Value | Ref Range | Performed | Pathologist | | | | | At | Signature | + + + + + + | VENTRICULAR | 98 | BPM | [facility] | | | RATE EKG | | | | | + + + + + + | ATRIAL RATE | 98 | BPM | [facility] | | + + + + + + | P-R | 136 | ms | [facility] | | | INTERVAL | | | | | + + + + + + | QRS | 124 | ms | [facility] | | | DURATION | | | | | + + + + + + | Q-T | 346 | ms | [facility] | | | INTERVAL | | | | | + + + + + + | Q-T | 441 | ms | [facility] | | | INTERVAL | | | | | | (CORRECTED) | | | | | + + + + + + | P WAVE AXIS | 42 | degrees | [facility] | | + + + + + + | QRS AXIS | 0 | degrees | [facility] | | + + + + + + | T AXIS | 17 | degrees | [facility] | | + + + + + + | INTERPRETAT | Normal sinus rhythmRight | | [facility] | | | ION TEXT | bundle branch | | | | | | blockAbnormal ECGNo | | | | | | previous ECGs | | | | | | availableConfirmed by | | | | | | EMANUEL STEEN MD ([id number]) | | | | | | on 01/24/2019 6:44:25 AM | | | | + + + + + + + + | Specimen | + + | | + + + + + | Narrative | Performed At | + + + | | | + + + + +---------+ + + | Performing | Address | City/State/Zipcode | Phone Number | | Organization | | | | + +---------+ + + | [facility] | | | | + +---------+ + + documented in this encounter Visit Diagnoses + + | Diagnosis | + + | Chest pain, unspecified type - Primary | + + | Lightheadedness Dizziness and giddiness | + + documented in this encounter Administered Medications + +---------+ +--------+-------+------+ | Medication Order | MAR | Action | Dose | Rate | Site | | | Action | Date | | | | + +---------+ +--------+-------+------+ | sodium chloride 0.9% (NS) bolus | New Bag | 01/23/20 | 1,000 | 2000 | | | 1,000 mL 1,000 mL, Intravenous, | | 19 8:15 | mLs | mL/hr | | | Administer over 30 Minutes, | | PM PDT | | | | | ONCE, Naga 01/22/19 at 1945, For 1 | | | | | | | dose | | | | | | + +---------+ +--------+-------+------+ +---+---+ | | | +---+---+ documented in this encounter"
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
--- OUTSIDE RECORDS SUMMARY | ~2019-07-17 | XMS | Clinical Summary ---
Demographics + + + | Address | [address] | | | [place] [address] | + + + | Home Phone [...] + + | Author | [facility] | + + + | Organization | [facility] | + + + | Address | Unknown | + + + | Phone | Unavailable | + + + Support + + +---------+ + | Name | Relationship | Address | Phone | + + +---------+ + | Soledad Muñiz | E[place] | , [place] | | + + +---------+ + Care Team Providers + +------+ + | Care Loader Magazine Grinder Name | Role | Phone | + +------+ + | Erich Morales | PCP | | + +------+ + Source Comments ERICA is fully live on both [facility] and [facility] Allergies No Known Allergies Medications + + [...] 12 Holes/100mm - | | Right: | [facility] [facility] | | | 244.12 | | [id number]: Qty: 1 on | | Foot | | | | / / | | 01/03/2012 by Thor Ho, | | | | | | | | MD at [facility] REV LOC | | | | | | | + +------+--------+ +--------+--------+--------+ | Screw Cortex 3.5 034mm - | | Right: | [facility] | | | 204.83 | | [id number]: Qty: 1 on | | Other | [...] Mm 36mm | | Right: | [facility] | | | 202.83 | | Self-Tapping - | | Other | | | | 6 / / | | [id number]: Qty: 1 on | | | | | | | | 01/03/2012 by Thor Ho, | | | | | | | | MD at [facility] INPATIENT REV LOC | | | | | | | + +---+--------+ +---+---+--------+ + + | Description:right midfoot | + + + +---+--------+ +---+---+--------+ | Screw Cortex 2.7 Mm 40mm | | Right: | [facility] | | | 202.84 | | Self-Tapping - | | Other | | | | 0 / / | | [id number]: Qty: 1 on | | | | | | | | 01/03/2012 by Thor Ho, | | | | | | | | MD at [facility] REV LOC | | | | | | | + +---+--------+ +---+---+--------+ + + | Description:right midfoot | + + + +---+--------+ +---+---+--------+ | Screw Cortex 2.7 Mm 50mm | | Right: | [facility] | | | 202.85 | | Self-Tapping - | | Other | | | | 0 / / | | [id number]: Qty: 1 on | | | | | | | | 01/03/2012 by Thor oH, | | | | | | | | MD at [facility] INPATIENT REV LOC | | | | | | | + +---+--------+ +---+---+--------+ + + | Description:right midfoot | + + + +---+--------+ +---+--------+--------+ | Screw Cortex 2.4 X 26mm | | Right: | [facility] | | | 201.62 | | Self-Tap - [id number]: | | Foot | | | | 6 / / | | Qty: 1 on 01/03/2012 by | | | | | | | | Thor Ho MD at [facility] | | | | | | | | INPATIENT REV LOC | | | | | | | + +---+--------+ +---+--------+--------+ | Stimultim Powell 5mlImplanted: | | Right: | | | 07/06/ | 600-00 | | Qty: 1 on 01/03/2012 by | | Foot | | | 2012 | 5 / | | Thor Ho MD at [facility] | | | | | | /06/17 | | INPATIENT REV LOC | | | | | | -H130/ | | | | | | | | 131 | + +---+--------+ +---+--------+--------+ + + | Description:[employer] | | COMPANY | + + + +---+--------+ +---+---+--------+ | Screw Cortex 3.5 018mm - | | Right: | [facility] | | | 204.81 | | [id number]: Qty: 1 on | | Other | | | | 8 / / | | 01/03/2012 by Thor Ho, | | | | | | | | at [facility] REV LOC | | | | | | | + +---+--------+ +---+---+--------+ + + | Description:HIREN MIDFOOT | + + + +---+--------+ +---+---+--------+ | Screw Cortex 3.5 026mm - | | Right: | [facility] | | | 204.82 | | [id number]: Qty: 1 on | | Other | | | | 6 / / | | 01/03/2012 by Thor Ho, | | | | | | | | MD at [facility] REV LOC | | | | | | | + +---+--------+ +---+---+--------+ + + | Description:RIGHT MIDFOOT | + + + +---+--------+ +---+---+--------+ | Screw Cortex 3.5 032mm - | | Right: | [facility] | | | 204.83 | | [id number]: Qty: 1 on | | Other | | | | 2 / / | | 01/03/2012 by Thor Ho, | | | | | | | | MD at [facility] REV LOC | | | | | | | + +---+--------+ +---+---+--------+ + + | Description:RIGHT MIDFOOT | + + + +---+--------+ +---+---+--------+ | Screw Cortex 3.5 028mm - | | Right: | [employer] | | | 204.82 | | [id number]: Qty: 1 on | | Other | | | | 8 / / | | 01/03/2012 by Thor Ho, | | | | | | | | MD at [facility] REV LOC | | | | | | | + +---+--------+ +---+---+--------+ + + | Description:RIGHT MIDFOOT | + + + +---+--------+ +---+---+--------+ | Screw Cortex 3.5 030mm - | | Right: | [facility] | | | 204.83 | | [id number]: Qty: 1 on | | Other | | | | 0 / / | | 01/03/2012 by Thor Ho, | | | | | | | | MD at [facility] REV LOC | | | | | | | + +---+--------+ +---+---+--------+ + + | Description:RIGHT MIDFOOT | + + + +---+--------+ +---+--------+--------+ | Tisseel Frozen 4ml - | | Right: | [facility] | | 06/06/ | [id number] | | [id number]: Qty: 1 on | | Foot | HEALTHCARE | | 2012 | 2 / | | 01/13/2012 by Thor Ho, | | | | | | /VND4L | | at [facility] INPATIENT REV LOC | | | | | | 082 | + +---+--------+ +---+--------+--------+ | StimulanImplanted: Qty: 1 on | | Right: | | | 03/06/ | 600-01 | | 07/24/2012 by Benjamín Abad | | | 2013 | 0 / | | MD Harinder at [facility] INPATIENT | | | [...] 3.5 034mm - | | Right: | [facility] | | | 204.83 | | [id number]: 01/03/2012 | | Other | | | [...] 3.5 036mm - | | Right: | [facility] | | | 204.83 | | [id number]: 01/03/2012 | | Other | | | | 6 / / | | by Thor Ho MD | | | | | | | | (Quantity not on | | | | | | | | file)Explanted: Qty: 1 at | | | | | | | | [facility] INPATIENT REV LOC | | | | | | | + +---+--------+ +---+---+--------+ + + | Description:RIGHT MIDFOOT | + + + +---+--------+ +---+---+--------+ | Screw Cortex 2.7 20mm | | Right: | [facility] | | | 202.82 | | Self-Tapping - | | Other | | | | 0 / / | | [id number]: 01/03/2012 | | | | | | | | by Thor Ho MD | | | | | | | | (Quantity not on | | | | | | | | file)Explanted: Qty: 1 at | | | | | | | | [facility] INPATIENT REV LOC | | | | | | | + +---+--------+ +---+---+--------+ + + | Description:RIGHT MIDFOOT | + + + +---+--------+ +---+---+--------+ | Screw Cortex 2.7 Mm 26mm | | Right: | [facility] | | | 202.82 | | Self-Tapping - | | Other | | | | 6 / / | | [id number]: 01/03/2012 | | | | | | | | by Thor Ho MD | | | | | | | | (Quantity not on | | | | | | | | file)Explanted: Qty: 1 at | | | | | | | | [facility] INPATIENT REV LOC | | | | | | | + +---+--------+ +---+---+--------+ + + | Description:RIGHT MIDFOOT | + + + +---+--------+ +---+---+--------+ | Screw Cortex 2.7 Mm 34mm | | Right: | [employer] [facility] | | | 202.83 | | Self-Tapping - | | Other | | | | 4 / / | | [id number]: 01/03/2012 | | | | | | | | by Thor Ho MD | | | | | | | | (Quantity not on | | | | | | | | file)Explanted: Qty: 1 at | | | | | | | | [facility] INPATIENT REV LOC | | | | | | | + +---+--------+ +---+---+--------+ + + | Description:right midfoot | + + + +---+--------+ +---+---+--------+ | Screw Cortex 3.5 018mm - | | Right: | [employer] [facility] | | | 204.81 | | [id number]: 01/03/2012 | | Other | | | [...] | | | + +--------+ +--------+-------+---------+--------+ | COMM[employer]IV[employer] MEDICAID | COMMUN[employer]IV[employer] | xxxxxxxx | | | | Medica [...] | | 1979 | | [place] [address] | | | eric | | | 1 (Home) | | + +--------+ +--------+ + + | Jaron Muñiz | Third | Self | [birth year] | [address] | | | Republican | | 1979 | | [place] [address] | | | Liabil | | | 1 (Home) | | | | ity | | | | | + +--------+ +--------+ + + Advance Directives + + + + + | Type | Date Recorded | Patient | Explanation | | | | 

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
--- OUTSIDE RECORDS SUMMARY | ~2019-07-17 | XMS | Encounter Summary ---
Demographics + + + | Address | [address] | | | [place] [address] | + + + | Home Phone | | + + + | Preferred Language | Unknown | + + + | Marital Status | | + + + | Synagogue Affiliation | NRP | + + + [...] Team Providers + +------+ + | Care Physician Surgeon Name | Role | Phone | + [...] Pavilion | | | | | | [place], [place] | | | | | | [address] | | | | | | [phone] | | | +--------+ + + + [...]
--- OUTSIDE RECORDS SUMMARY | ~2019-07-17 | XMS | Encounter Summary ---
Demographics + + + | Address | [address] | | | [place] [address] | + + + | Home Phone | | + + + | Preferred Language | Unknown | + + + | Marital Status | | + + + | Catholic Affiliation | NRP | + + + | Race | White | + + + | Ethnic Group | Not or | + + + Author + + + | Author | [facility] | + + + | Organization | [facility] | + + + | Address | Unknown | + + + | Phone | Unavailable | + + + Support + + +---------+ + | Name | Relationship | Address | Phone | + + +---------+ + | Soledad Muñiz | ECON | , [place] | | + + +---------+ + Care Team Providers + +------+ + | Care Neuropsychiatrist Name | Role | Phone | + +------+ + | Erich Morales | PCP | | + +------+ + Reason for Visit + + + | Reason | Comments | + + + | Postoperative | | | infection | | + + + Encounter Details +--------+ + + + + | Date | Type | Department | Care Team | Description | +--------+ + + + + | 07/13/ | Telephone | Orthopaedics at | Thor Ho MD | Postoperative | | 2011 | | [facility] [address] | | infection | | | | [address] | | | | | | [address] | | | | | | [place] | | | | | | [address] | | | | | | [phone] | | | +--------+ + + + [...]
--- OUTSIDE RECORDS SUMMARY | ~2019-07-17 | XMS | Encounter Summary ---
Demographics + + + | Address | [address] | | | [place] [address] | + + + | Home Phone | | + + + | Preferred Language | Unknown | + + + | Marital Status | | + + + | Sikh Affiliation | NRP | + + + | Race | White | + + + | Ethnic Group | Not or | + + + Author + + + | Author | [facility] | + + + | Organization | [facility] | + + + | Address | Unknown | + + + | Phone | Unavailable | + + + Support + + +---------+ + | Name | Relationship | Address | Phone | + + +---------+ + | Soledad Muñiz | ECON | , [place] | | + + +---------+ + Care Team Providers + +------+ + | Care Washer Hand Name | Role | Phone | [...] Refill Encounters | | 2012 | | [facility] [address] | | | | | | [address] | | | | | | [facility] [address] | | | | | | [place] | | | | | | [address] | | | | | | [phone] | | | +--------+ + + + [...]
--- OUTSIDE RECORDS SUMMARY | ~2019-07-17 | XMS | Encounter Summary ---
Demographics + + + | Address | [address] | | | [place] [address] | + + + | Home Phone [...] + + + | Author | [facility] | + + + | Organization | [facility] | + + [...] Team Providers + +------+ + | Care Psychiatric Social Worker Supervisor Name | Role | Phone | [...] Refill Encounters | | 2011 | | [facility] [address] | | | | | | [address] | | | | | | [address] | | | | | | [place] | | | | | | [address] | | | | | | [phone] | | | +--------+ + + + [...]
--- OUTSIDE RECORDS SUMMARY | ~2019-07-17 | XMS | Encounter Summary ---
Demographics + + + | Address | [address] | | | [place] [address] | + + + | Home Phone | | + + + | Preferred Language | Unknown | + + + | Marital Status | | + + + | Advent Affiliation | NRP | + + + [...] Team Providers + +------+ + | Care Medical Office Representative Name | Role | Phone | + +------+ + | No Pcp Per Patient | PCP | Unavailable | + +------+ + Encounter Details +--------+ + + + + | Date | Type | Department | Care Team | Description | +--------+ + + + + | 01/08/ | Telephone | Orthopaedics at | Thor Ho MD | | | 2011 | | [facility] [address] | | | | | | [address] | | | | | | [address] | | | | | | [place] | | | | | | [address] | | | | | | [phone] | | | +--------+ + + + [...]
--- OUTSIDE RECORDS SUMMARY | ~2019-07-17 | XMS | Encounter Summary ---
Demographics + + + | Address | [address] | | | [place] [address] | + + + | Home Phone | | + + + | Preferred Language | Unknown | + + + | Marital Status | | + + + | Yazidism Affiliation | NRP | + + + | Race | White | + + + | Ethnic Group | Not or | + + + Author + + + | Author | [facility] | + + + | Organization | [facility] | + + + | Address | Unknown | + + + | Phone | Unavailable | + + + Support + + +---------+ + | Name | Relationship | Address | Phone | + + +---------+ + | Soledad Muñiz | ECON | , [place] | | + + +---------+ + Care Team Providers + +------+ + | Care Semiconductors Wafer Breaker Name | Role | Phone | + +------+ + | No Pcp Per Patient | PCP | Unavailable | + +------+ + Encounter Details +--------+ + + + + | Date | Type | Department | Care Team | Description | +--------+ + + + + | 01/08/ | Telephone | Orthopaedics at | Thor Ho MD | | | 2011 | | [facility] [address] | | | | | | [address] | | | | | | [address] | | | | | | [place] | | | | | | [address] | | | | | | [phone] | | | +--------+ + + + [...]
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
--- OUTSIDE RECORDS SUMMARY | ~2019-07-17 | XMS | Encounter Summary ---
Demographics + + + | Address | [address] | | | [place] [address] | + + + | Home Phone [...] + + + | Author | [facility] | + + + | Organization | [facility] | + + + | Address | Unknown | + + + | Phone | Unavailable | + + + Support + + +---------+ + | Name | Relationship | Address | Phone | + + +---------+ + | Soledad Muñiz | ECON | , [place] | | + + +---------+ + Care Team Providers + +------+ + | Care Head Mva Reactor Operator Name | Role | Phone | + +------+ + PCP | Unavailable | + +------+ + Encounter Details +--------+ + + + + | Date | Type | Department | Care Team | Description | +--------+ + + + + | 09/11/ | ED Progress | Emergency Medicine | Report, Emergency | ED Progress Note | | 1996 | | [address] [facility] | Services | | | | Note-Transc | [address] | | | | | chayo | [place], [place] | | | | | | [address] | | | +--------+ + + + [...]
--- OUTSIDE RECORDS SUMMARY | ~2019-07-17 | XMS | Encounter Summary ---
Demographics + + + | Address | [address] | | | [place] [address] | + + + | Home Phone | | + + + | Preferred Language | Unknown | + + + | Marital Status | | + + + | Gnosticism Affiliation | NRP | + + + [...] Providers + +------+ + | Care Rn Radiation Oncology Name | Role | Phone | + [...] Refill Encounters | | 2012 | | [facility] [address] | | | | | | [address] | | | | | | [facility] [address] | | | | | | [place] | | | | | | [address] | | | | | | [phone] | | | +--------+ + + + [...]
--- OUTSIDE RECORDS SUMMARY | ~2019-07-17 | XMS | Encounter Summary ---
Demographics + + + | Address | [address] | | | [place] [address] | + + + | Home Phone | | + + + | Preferred Language | Unknown | + + + | Marital Status | | + + + | Protestant Affiliation | NRP | + + + [...] Team Providers + +------+ + | Care Dermatology Nurse Practitioner Name | Role | Phone | + [...] + + + + | 01/12/ | Hospital | [facility] [address] | Thor Ho MD | | | 2011 | Encounter | [address] | | | | | | [address] | | | | | | [place], | | | | | | [place] [address] | | | | | | [phone] | | | +--------+ + + + [...] PM PDT ORTHOPAEDIC OPERATIVE REPORT | | [id number] [address] Gillespie 155643 | | | | | | Date: 01/13/2012 | | | | | | Attending Surgeon: Thor Ho M.D. | | | | | | Grinding Operator(s): SAM Jean Baptiste | | | | [...] | Ms. Villar served as the first medical or surgical instrument maker as there was no qualified | | [...] filedocumented in this encounter Administered Medications + +---------+ + + +------+ | Medication Order | MAR | Action | Dose | Rate | Site | | | Action | Date | | | | + +---------+ + + +------+ | lactated ringers IV 10 mL/hr, | New Bag | 01/13/20 | 10 mL/hr | 10 mL/hr | | | intravenous, PROCEDURE | | 12 5:54 | | | | | CONTINUOUS, Starting 01/13/12 | | AM PDT | | | | | at 0600, Until Mon01/13/12 at 1826 | | | | | | + +---------+ + + +------+ +---+---+ | | | +---+---+ + +-------+ +------+---+---+ | lidocaine (aka XYLOCAINE) 10 | Given | 01/13/20 | 1 mg | | | | mg/mL (1 %) injection | | 12 5:54 | | | | | subcutaneous, PREPROCEDURE PRN, | | AM PDT | | | | | Starting 01/13/12 at 0554, | | | | | | | Until Mon01/13/12 at 1826, IV | | | | | | | start | | | | | | + +-------+ +------+---+---+ + +---+ | | | + +---+ | oxyCODONE (immediate release) | | | (aka ROXICODONE) tablet 1 dose, | | | Starting Mon01/13/12 at 0958, | | | Until Mon01/13/12 [...] | | | | | NEEDED, Starting Mon01/13/12 at | | | | | | | 0937, Until Mon01/13/12 at 1826, | | | | | | | moderate pain | | | | | | + +-------+ +-------+---+---+ +---+---+ | | | +---+---+ documented in this encounter
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
--- OUTSIDE RECORDS SUMMARY | ~2019-07-17 | XMS | Encounter Summary ---
Demographics + + + | Address | [address] | | | [place] [address] | + + + | Home Phone [...] Team Providers + +------+ + | Care Stage Set Up Worker Name | Role | Phone | [...] + + | 01/12/ | Hospital | [facility] [address] | Thor Ho MD | | | 2011 | Encounter | [address] | | | | | | [address] | | | | | | [place], | | | | | | [place] [address] | | | | | | [phone] | | | +--------+ + + + [...] PM PDT ORTHOPAEDIC OPERATIVE REPORT | | [phone] ANTONINO Gillespie 317078 | | | | | | Date: 01/13/2012 | | | | | | Attending Surgeon: Thor Ho M.D. | | | | | | Dermatology Nurse(s): SAM Jean Baptiste | | | | [...] Ms. Villar served as the first surgical dressing maker as there was no qualified | [...]
--- OUTSIDE RECORDS SUMMARY | ~2019-07-17 | XMS | Encounter Summary ---
Demographics + + + | Address | [address] | | | [place] [address] | + + + | Home Phone | | + + + | Preferred Language | Unknown | + + + | Marital Status | | + + + | Yarsani Affiliation | NRP | + + + | Race | White | + + + | Ethnic Group | Not or | + + + Author + + + | Author | [facility] | + + + | Organization | [facility] | + + + | Address | Unknown | + + + | Phone | Unavailable | + + + Support + + +---------+ + | Name | Relationship | Address | Phone | + + +---------+ + | Soledad Muñiz | ECON | , [place] | | + + +---------+ + Care Team Providers + +------+ + | Care Table Operator Name | Role | Phone | [...] | | cast | | | | [place], [place] | | | | | | [address] | | | +--------+---------+ + + + [...] might be different fr om the original. [facility] DEPART[facility] OF ORTHOPAEDICS & REHABILITATION INPATIENT HOSPITAL DISCHARGE SUMMARY & INTERDISCIPLINARY INSTRUCTIONS Patient: Jaron Muñiz CSN: [id number] Admission Date: 01/02/2012 Discharge Date: 01/05/2012 Attending Physician: Thor Ho MD PCP: No Pcp Per PATIENT Service: [facility] Orthopaedics & Rehabilitation Diagnoses Principal [...] management. He will remain nonweightbearing on the [facility] lower extremity until further evaluation in [...] e. Condition on Discharge Good Destination: Destination: fci facility Discharge Medication List as of 01/05/2012 [...] (MORPHINE, PF, INJ) Comments: Reason for Stopping: [facility] Orthopaedic Service Pain Policy At [...] NO EXCEPTIONS. Other Discharge Orders & Instructions [facility] DEPARTMENT OF ORTHOPAEDICS & REHABILITATION CARE INSTRUCTIONS FROM YOUR ORTHOPAEDIC SURGEON Do not drive if taking narcotic pain medications. HOW TO REACH YOUR ORTHOPAEDIC TEAM WITH QUESTIONS, CONCERNS, OR NEW SYMPTOMS: During the workday (M-F 8-5), please call . Someone from your orthopaedic te am will return your call shortly. After hours and weekend, please call and ask the equipment operator/laborer/supervisor the page the ortho paedic resident instrumentation fitter. Always call if anything should come up. [...] report these symptoms immediately to your physician. [facility] ORTHOPAEDIC PAIN MEDICATION POLICY (ABRIDGED): [...] Condition on Discharge: Improved Discharging Patient To: Correction Facilit Date and Time of Discharge Summary Completion: 01/05/2012, 5:46 PM Discharging Provider: ASHLEY MARTEL MD Discharging Attending: Thor Ho MD Thank you for the opportunity to take care of Jaron Muñiz during this inpatient sta y, it has been our pleasure. ASHLEY MARTEL MD 01/05/2012, 5:46 PM [facility] Department of Orthopaedics & Rehabilitation [address] [facility] Mail Code: [id number] Angelita JOYA [phone] Pager: [phone] documented in this enco unter Medications at [...] with the above documentation. Thor Ho MD Music Grapher Orthopaedic Trauma [facility] Department of Orthopaedics Sadia Briones NP - [...] 1 g Intravenous Q8H 1 g (01/05/12 3594) enoxaparin (aka LOVENOX) injection 40 mg 40 [...] Intravenous Q2H PRN 0.6 m g (01/05/12 7850) naloxone (aka NARCAN) injection Intravenous PRN ondansetron [...] excellent. My personal assessment is concordant with [facility] evaluation. My treatment plan is: Patient to [...] pain. The most common side effects are REHAB AID effects of sedation, cognitive impairme nt, and [...] NP BILLING INFORMATION [facility] DEPARTMENT: [id number] Place of Service:- Inpatient Date of Service: 01/05/2012 CSN: [id number] Suggested Modifier: None Suggested CPT: 59477 - [place] [facility],MATTHIEU Holloway Mil Sen MD [...] SADIA URIBE NP BILLING INFORMATION [facility] DEPARTMENT: [id number] Place of Service:60055- Inpatient Date of Service: 01/04/2012 CSN: [id number] Suggested Modifier: None Suggested CPT: 78873 - [place] [facility],MATTHIEU Holloway IASeAlexis nicholas MD [...] PM PDT ORTHOPAEDIC OPERATIVE REPORT | | [phone] ANTONINO Gillespie [id number] | | | | | | Date: 01/03/2012 | | | | | | Attending Surgeon: Thor Ho M.D. | | | | | | Safety Officer(s): Mil Castaneda M.D. | | | | [...] | 5. Disposition: Discharge to home versus fci facility after | | removal of wound [...] (H) | 60 - 99 mg/dL | [facility] - | | | GLUCOSE, | | [...] BRAY | [address] | [place], [place] | | | KARLY MCGOWAN OF CARE | [address] | [address] | | | TESTS | | | [...] | + + + + + | [facility] | [address] | [place] [address] | | | PATHOLOGY | [address] [...] | + + + + + | [facility] | [address] | [place] [address] | | | PATHOLOGY | [address] [...] DEPARTMENT OF | [address] | [place] [address] | | | PATHOLOGY | [address] [...] view image for the detailed interpretation from [employer] results. | CARDIOLOGY | + + + + + + + + | Performing | Address | City/State/Zipcode | Phone Number | | Organization | | | | + + + + + | [facility] | [address] | [place], [place] | | | CARDIOLOGY | [address] | [address] | | + + + + + [...] view image for the detailed interpretation from [employer] results. | CARDIOLOGY | + + + + + + + + | Performing | Address | City/State/Zipcode | Phone Number | | Organization | | | | + + + + + | [facility] | [address] | [place], [place] | | | CARDIOLOGY | [address] | [address] | | + + + + + [...] | + + + + + | [facility] | [address] | [place] [address] | | | PATHOLOGY | [address] [...] | + + + + + | [facility] DEPARTMENT OF | [address] | [place] [address] | | | PATHOLOGY | [address] [...] | + + + + + | [facility] DEPARTMENT OF | [address] | [place] [address] | | | PATHOLOGY | [address] [...] | | | DEPARTMENT | | | GUAMANIAN | | | OF | | | [...] DEPARTMENT OF | [address] | [place] [address] | | | PATHOLOGY | [address] [...] | + + + + + | [facility] DEPARTMENT OF | [address] | [place] [address] | | | PATHOLOGY | [address] [...]
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
--- OUTSIDE RECORDS SUMMARY | ~2019-07-17 | XMS | Encounter Summary ---
Demographics + + + | Address | [address] | | | [place] [address] | + + + | Home Phone | | + + + | Preferred Language | Unknown | + + + | Marital Status | | + + + | Yarsanism Affiliation | NRP | + + + | Race | White | + + + | Ethnic Group | Not or | + + + Author + + + | Author | [facility] | + + + | Organization | [facility] | + + + | Address | Unknown | + + + | Phone | Unavailable | + + + Support + + +---------+ + | Name | Relationship | Address | Phone | + + +---------+ + | Soledad Muñiz | ECON | , [place] | | + + +---------+ + Care Team Providers + +------+ + | Care Lock Maintenance Supervisor Name | Role | Phone | [...] After-cataract, | | 2010 | Visit | [place]/Ophthalmol | | obscuring vision | | | | ogy at [facility] [address] | | (Primary Dx) | | | | [place] Mailcode: | | | | | | [facility] | | | | | | Health and [facility], | | | | | | [facility] | | | | | | Floor [place], [place] | | | | | | [address] | | | | | | [phone] | | | +--------+---------+ + + + [...] only. GARY BALL MD Director, Comprehensive Ophthalmology [facility] [place] [id number] [facility], [address] [place] [address] Fax [phone] Lauren Solorzano - 01/06 11:12 AM PDT COMPREHENSIVE OPHTHALMOLOGY PROGRESS NOTE 01/26/2011 HPI: 30 y.o. year old male from [place] : Patient presents with: Comprehensive eye examination - For about 4 months noticed vision was really bad in the l eft eye. 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 Last seen by Dr. Dodson in 2005. Had yag capsulotomy OD on that visit. Moved to [place] af terwards. Has noticed gradually decreasing vision OS. Tobacco use: reports that he has quit smoking. He has quit using smokeless tobacco. [facility] Care Provider: SAM Pat Past ocular history: Ref Silas Englandconcapri, OD, [place] Pseudophakia, PCO, right eye RP and Choreoretinal [...] retinal detachment. atrophy 360 spicules Comments: See [facility] Ophthalmology Exam Module for additional exam information [...] eye in 2004 and on speaking to product safety head who referred pt. in [place] , he did note this on his [...] prior authorization. [facility] and it is difficult to get to [place] for h is appointments, will arrange for follow up in [facility] and hopefully pt can hav e yag capsulotomy same day. Serina Tracy MD Ophthalmology Resident [facility] Physician: Serina Tracy MD, 01/26/2011 documented in this encoun ter Plan of Treatment Not on filedocumented as of this encounter Visit Diagnoses + + | Diagnosis | + + | After-cataract, obscuring vision - Primary | + + documented in this encounter"
--- OUTSIDE RECORDS SUMMARY | ~2019-07-17 | XMS | Encounter Summary ---
Demographics + + + | Address | [address] | | | [place] [address] | + + + | Home Phone [...] Team Providers + +------+ + | Care Casserole Preparer Name | Role | Phone | + [...] (Wound Check | | 2011 | | [facility] [address] | | Care) | | | | [address] | | | | | | [address] | | | | | | [place] | | | | | | [address] | | | | | | [phone] | | | +--------+ + + + [...]
--- OUTSIDE RECORDS SUMMARY | ~2019-07-17 | XMS | Encounter Summary ---
Demographics + + + | Address | [address] | | | [place] [address] | + + + | Home Phone | | + + + | Preferred Language | Unknown | + + + | Marital Status | | + + + | Episcopal Affiliation | NRP | + + + [...] Team Providers + +------+ + | Care Horticultural Specialty Grower Field Name | Role | Phone | + [...] Refill Encounters | | 2011 | | [facility] [address] | | | | | | [address] | | | | | | [address] | | | | | | [place] | | | | | | [address] | | | | | | [phone] | | | +--------+ + + + [...]
--- OUTSIDE RECORDS SUMMARY | ~2019-07-17 | XMS | Encounter Summary ---
Demographics + + + | Address | [address] | | | [place] [address] | + + + | Home Phone | | + + + | Preferred Language | Unknown | + + + | Marital Status | | + + + | Bahai Affiliation | NRP | + + + | Race | White | + + + | Ethnic Group | Not or | + + + Author + + + | Author | [facility] | + + + | Organization | [facility] | + + + | Address | Unknown | + + + | Phone | Unavailable | + + + Support + + +---------+ + | Name | Relationship | Address | Phone | + + +---------+ + | Soledad Muñiz | ECON | , [place] | | + + +---------+ + Care Team Providers + +------+ + | Care Panel Machine Tender Name | Role | Phone | + +------+ + PCP | Unavailable | + +------+ + Encounter Details +--------+ + + + + | Date | Type | Department | Care Team | Description | +--------+ + + + + | 03/09/ | Documentati | [facility] | Shana Dodson MD | | | 2005 | on | [address] | | | | | | [place] Mailcode: | | | | | | [place], [place] | | | | | | [address] | | | +--------+ + + + [...]
--- OUTSIDE RECORDS SUMMARY | ~2019-07-17 | XMS | Clinical Summary ---
Demographics + + + | Address | [address] | | | [place] [address] | + + + | Home Phone | | + + + | Preferred Language | Unknown | + + + | Marital Status | | + + + | Faith Affiliation | Unknown | + + + | Race | Unknown | + + + | Ethnic Group | Unknown | + + + Author + + + | Author | [facility] | | | and Mikeana | + + + | Organization | [facility] | | | and Mikeana [...] Team Providers + +------+ + | Care Promotions Team Leader Name | Role | Phone | + [...] | [employer] | [employer] | [id number] | | [phone] | | [employer] | [...] | 1980 | [phone] | [place] [address] | | | eric | | | 6 (Home) | | + +--------+ +--------+ + + Advance Directives + + + + + | Type | Date Recorded | Patient | Explanation | | | | Wait Staff | | + + + + + | Power of | | | | | Roller Checker | | | | + + + + + | Advance | 01/22/2019 8:16 | | | | Directive | PM | | | + + + + +"
--- OUTSIDE RECORDS SUMMARY | ~2019-07-17 | XMS | Encounter Summary ---
Demographics + + + | Address | [address] | | | [place] [address] | + + + | Home Phone | | + + + | Preferred Language | Unknown | + + + | Marital Status | | + + + | Uatsdin Affiliation | NRP | + + + | Race | White | + + + | Ethnic Group | Not or | + + + Author + + + | Author | [facility] | + + + | Organization | [facility] | + + + | Address | Unknown | + + + | Phone | Unavailable | + + + Support + + +---------+ + | Name | Relationship | Address | Phone | + + +---------+ + | Soledad Muñiz | ECON | , [place] | | + + +---------+ + Care Team Providers + +------+ + | Care Soap Grinder Name | Role | Phone | [...] + + + + | 08/03/ | Presser Hand | Infectious | Hillary Harmon | | | 2011 | | [facility] at [facility] | [place] | | | | | Floor [address] | | | | | | [address] | | | | | | Mailcode: [id number] | | | | | | Physician's Christina | | | | | | [place], [place] | | | | | | [address] | | | | | | [phone] | | | +--------+ + + + [...]
--- OUTSIDE RECORDS SUMMARY | ~2019-07-17 | XMS | Encounter Summary ---
Demographics + + + | Address | [address] | | | [place] [address] | + + + | Home Phone | | + + + | Preferred Language | Unknown | + + + | Marital Status | | + + + | Zoroastrian Affiliation | NRP | + + + [...] Team Providers + +------+ + | Care Computing Services Director Name | Role | Phone | + [...] | Postoperative | | 2011 | | [facility] [address] | | infection | | | | [address] | | | | | | [address] | | | | | | [place] | | | | | | [address] | | | | | | [phone] | | | +--------+ + + + [...]
--- OUTSIDE RECORDS SUMMARY | ~2019-07-17 | XMS | Encounter Summary ---
Demographics + + + | Address | [address] | | | [place] [address] | + + + | Home Phone [...] Team Providers + +------+ + | Care Unix Consultant Name | Role | Phone | + +------+ + PCP | Unavailable | + +------+ + Encounter Details +--------+ + + + + | Date | Type | Department | Care Team | Description | +--------+ + + + + | 09/11/ | Results | Emergency Medicine | [place]en [place], | | | 1996 | Only | [address] [facility] | MD Abiodun Gamboa | | | | | [address] | [facility] and | | | | | [place], [place] | Counseling [address] | | | | | [address] | [address] [place], | | | | | | [place] [address] | | | | | | [phone] | | | | | | | [...] | + +---------+ + + | [facility] DEPARTMENT OF | | | | | RADIOLOGY | | | | + +---------+ + + documented in this encounter Visit Diagnoses Not on filedocumented in this encounter"
--- OUTSIDE RECORDS SUMMARY | ~2019-07-17 | XMS | Encounter Summary ---
Demographics + + + | Address | [address] | | | [place] [address] | + + + | Home Phone [...] Team Providers + +------+ + | Care Valet Cashier Name | Role | Phone | [...] of Choroid (Primary | | | | [place] [address] Mailcode: | | Dx); | | | | [place] [place], [place] | | After-Cataract, | | | | [address] | | Obscuring Vision | +--------+---------+ + [...] PAULINA MINAYA OD [facility] [address] [place] [address] 25 y.o. year old male from [place] : Patient presents with: Capsulotomy of lens [...] Reflex K1 K2 K2 axis Right eye [place] +1.00 45 20/100 45.50 46.50 116 Left [...] for postoperative follow-up. Shana Dodson M.D. [facility] documented in this enco unter [...] | + + +--------+ + + | MS OPTHALMIC DX | Procedures | Routin | Unspecified | Ordered: 02/21/2006 | | IMAGING | | e | Disorder of Choroid | | + + +--------+ + + | MS DISCISSION,2ND | Procedures | Routin | After-Cataract, | Ordered: 02/21/2006 | | CATARACT,LASER | | e | Obscuring Vision | | + + +--------+ + + | MS DISCISSION,2ND | Procedures | Routin | After-Cataract, [...]
--- OUTSIDE RECORDS SUMMARY | ~2019-07-17 | XMS | Encounter Summary ---
Demographics + + + | Address | [address] | | | [place] [address] | + + + | Home Phone | | + + + | Preferred Language | Unknown | + + + | Marital Status | | + + + | Denominational Affiliation | NRP | + + + [...] Team Providers + +------+ + | Care Occupational Rehabilitation Aide Name | Role | Phone | [...] Refill Encounters | | 2012 | | [facility] [address] | | | | | | [address] | | | | | | [facility] | | | | | | [place] | | | | | | [address] | | | | | | [phone] | | | +--------+ + + + [...]
--- OUTSIDE RECORDS SUMMARY | ~2019-07-17 | XMS | Encounter Summary ---
Demographics + + + | Address | [address] | | | [place] [address] | + + + | Home Phone [...] Team Providers + +------+ + | Care Funeral Driver Name | Role | Phone | + [...] John | | | | | Rd [facility] | [address] [facility] | | | | | [facility] | [place] [address] | | | | | Desk Located on the | [phone] | | | | | 9th floor | | | | | | [place], [place] | | | | | | [address] | | | +--------+ + + + [...]
--- OUTSIDE RECORDS SUMMARY | ~2019-07-17 | XMS | Encounter Summary ---
Demographics + + + | Address | [address] | | | [place] [address] | + + + | Home Phone [...] Team Providers + +------+ + | Care Button Reclaimer Name | Role | Phone | + [...] [id number] | | | | | | [place], [place] | | | | | | [address] | | | | | | [phone] | | | +--------+ + + + [...] + + + + | [facility] | [address] | [place] [address] | | | PATHOLOGY | [address] [...] + + + + | [facility] | [address] | [place] [address] | | | PATHOLOGY | [address] [...] + + + + | [facility] | [address] | [place] [address] | | | PATHOLOGY | [address] [...] + + + + | [facility] | [address] | [place] [address] | | | PATHOLOGY | [address] [...] Re | | | | | | [address] | | | | + + + + + + + + | Specimen | + + | | + + + + + + + | Performing | Address | City/State/Zipcode | Phone Number | | Organization | | | | + + + + + | [facility] | [address] | [place] [address] | | | PATHOLOGY | [address] [...] + + + + | [facility] | [address] | [place] [address] | | | PATHOLOGY | [address] [...] + + + + | [facility] | [address] | [place] [address] | | | PATHOLOGY | [address] | | | + + + + + documented in this encounter Visit Diagnoses Not on filedocumented in this encounter"
--- OUTSIDE RECORDS SUMMARY | ~2019-07-17 | XMS | Encounter Summary ---
Demographics + + + | Address | [address] | | | [place] [address] | + + + | Home Phone [...] Team Providers + +------+ + | Care Director Of Programming Name | Role | Phone | + +------+ + | No Pcp Per Patient | PCP | Unavailable | + +------+ + Encounter Details +--------+ + + + + | Date | Type | Department | Care Team | Description | +--------+ + + + + | 02/14/ | Hospital | Radiology/Imaging | | | | 2011 | Encounter | at [facility] | | | | | | [address] | | | | | | [facility] [address] | | | | | | [place], [place] | | | | | | [address] | | | | | | [phone] | | | +--------+ + + + [...] joint. | | | | | | Eugene arenoted in | | | | | [...]
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
--- OUTSIDE RECORDS SUMMARY | ~2019-07-17 | XMS | Encounter Summary ---
Demographics + + + | Address | [address] | | | [place] [address] | + + + | Home Phone [...] Team Providers + +------+ + | Care Industrial Nurse Name | Role | Phone | [...] | | | | | osteomyeliti | [facility] | [facility] | | | | | s, ankle and | Rd | Rd | | | | | foot | [place], [place] | [place], [place] | | | | | | [address] | [address] | +--------+--------+ + + + + Encounter [...] | | | | [address] | [place] [address] | (Primary Dx); | | | | Mailcode: L457 | [phone] | [facility] ([facility]) | | | | [facility] | | | | | | [place], [place] | | | | | | [address] | | | | | | [phone] | | | +--------+---------+ + + + [...] FOLLOW UP Referrring Physician: Thor Ho MD [address] [place] [address] Primary Care Physician: [facility] [address] [facility] [address] [place] [address] Mr. Muñiz presents to Infectious Diseases Clinic [...] column spanning plate s/p open reduction and music internship al fixation, right midfoot fracture Dislocation associated [...] above discussion. SHIRLEY ULLOA MD INFECTIOUS DISEASES [address] [place] [address] Mailcode: L608 [place] [address] documented in this e ncounter Plan of Treatment Not on filedocumented as of this encounter Visit Diagnoses + + | Diagnosis | + + | Encounter for long-term (current) use of antibiotics - Primary | + + | Osteomyelitis (HCC) Unspecified osteomyelitis, site unspecified | + + documented in this encounter
--- OUTSIDE RECORDS SUMMARY | ~2019-07-17 | XMS | Encounter Summary ---
Demographics + + + | Address | [address] | | | [place] [address] | + + + | Home Phone [...] Team Providers + +------+ + | Care Tube Buffer Name | Role | Phone | [...] | +--------+ + + + + | 07/27/ | Cabinet And Trim Installer | Infectious | Hillary Harmon | | | 2011 | | Diseases at [facility] | [place] | | | | | Floor [address] | | | | | | [address] | | | | | | Mailcode: [id number] | | | | | | Physician's Christina | | | | | | [place], [place] | | | | | | [address] | | | | | | [phone] | | | +--------+ + + + [...]
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
--- OUTSIDE RECORDS SUMMARY | ~2019-07-17 | XMS | Encounter Summary ---
Demographics + + + | Address | [address] | | | [place] [address] | + + + | Home Phone | | + + + | Preferred Language | Unknown | + + + | Marital Status | | + + + | Christianity Affiliation | Unknown | + + + | Race | Unknown | + + + | Ethnic Group | Unknown | + + + Author + + + | Author | [facility] | | | and Mikeana | + + + | Organization | [facility] | | | and Mikeana [...] Team Providers + +------+ + | Care Television News Video Editor Name | Role | Phone | [...] | | type | St [place] | [address] | | | | | Lightheadedn | [place], [place] | [place], | | | | | ess ER FUP | [address] | [place] [address] | | | | | Procedures | Phone: | Phone: | | | | | PROCESS PUMPER | [phone] | [phone] | | | | | | Fax: | Fax: | | | | | | [phone] | [phone] | +--------+ + + + + + [...] | | | | CENTER [address] | [place] | (Primary Dx); | | | | [place] | [address] | Lightheadedness | | | | [address] | | | | | | [phone] | | | +--------+ + + + [...] for any worsening symptoms or go to [facility]. Drink plenty of fluids. Get up slowly. AttachmentsThe following attachments cannot be sent through Care Everywhere.Dizziness or Fa inting, Possible Causes of (Luxembourger)Chest Pain, Uncertain Cause (Luxembourger)documented in this encounter Medications at Time of [...] + | [facility] | [address] | [place] | [phone] | | [facility] | | [address] | | | - LABORATORY | | [...] + | [facility] | [address] | [place] | [phone] | | [facility] | | [address] | | | - LABORATORY | | [...] | | | | | | [employer] | | | | | [...] [address] | [place] | [phone] | | [facility] | | [address] | | | - LABORATORY | | [...] | 1.06 | 0.70 - 1.30 | [facility] | | | | | mg/dL | [facility] | | | | | | MEDICAL | | | | | | CENTER - | | | | | | LABORATORY | | + + + + + + | eGFR if not | >60Comment: GLOMERULAR | >=60 | [facility] | | | | FILTRATION | mL/min/1.73m2 | [facility] | | | [place] | RATE,ESTIMATED | | MEDICAL | | | | mL/min/1.61a7Pepy than | | CENTER - | | [...] | 9.8 | 8.7 - 10.4 | [facility] | | | | | mg/dL | [facility] | | | | | | MEDICAL [...] + | [facility] | [address] | [place] | [phone] | | [facility] | | [address] | | | - LABORATORY | | [...] + | [facility] | [address] | [place] | [phone] | | [facility] | | [address] | | | - LABORATORY | | [...] [address] | [place] | [phone] | | [facility] | | [address] | | | - LABORATORY | | [...] + | [facility] | [address] | [place] | [phone] | | [facility] | | [address] | | | - LABORATORY | | [...] + | [facility] | [address] | [place] | [phone] | | [facility] | | [address] | | | - LABORATORY | | [...] [address] | [place] | [phone] | | [facility] | | [address] | | | - LABORATORY | | [...] [address] | [place] | [phone] | | [facility] | | [address] | | | - LABORATORY | | [...] | | | | EMANUEL STEEN MD ([id number]) | | | | | | on [...]
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
--- OUTSIDE RECORDS SUMMARY | ~2019-07-17 | XMS | Encounter Summary ---
Demographics + + + | Address | [address] | | | [place] [address] | + + + | Home Phone [...] Team Providers + +------+ + | Care Incident Response Engineer Name | Role | Phone | + +------+ + | Erich Morales | PCP | | + +------+ + Encounter Details +--------+ + + + + | Date | Type | Department | Care Team | Description | +--------+ + + + + | 07/18/ | Hospital | Radiology/Imaging | | | | 2011 | Encounter | at [facility] | | | | | | [address] | | | | | | [place] | | | | | | [place] | | | | | | [address] | | | | | | [phone] | | | +--------+ + + + [...] + +---------+ + + | [facility] DEPARTMENT OF | | [...]
--- OUTSIDE RECORDS SUMMARY | ~2019-07-17 | XMS | Encounter Summary ---
Demographics + + + | Address | [address] | | | [place] [address] | + + + | Home Phone [...] Team Providers + +------+ + | Care Configuration Management Consultant Name | Role | Phone [...] + + | 10/20/ | Emergency | [facility] Emergency | | | | 2010 | | Department [address] | | | | [address] | | | | | | [facility] | | | | | | [place], [place] | | | | | | [address] | | | | | | [phone] | | | +--------+ + + + [...]
--- OUTSIDE RECORDS SUMMARY | ~2019-07-17 | XMS | Encounter Summary ---
Demographics + + + | Address | [address] | | | [place] [address] | + + + | Home Phone [...] Team Providers + +------+ + | Care Assistant Housekeeping Manager Name | Role | Phone | [...] | | | | | osteomyeliti | [facility] | [facility] | | | | | s, ankle and | Rd | Rd | | | | | foot | [place], [place] | [place] | | | | | | [address] | [address] | +--------+--------+ + + + + Encounter [...] use of antibiotics | | | | [place], [place] | | | | | | [address] | | | | | | [phone] | | | +--------+---------+ + + + [...] DISEASES CLINIC FOLLOW UP Primary Care Physician: [facility] [address] [facility] [address] [place] [address] Mr. Muñiz presents to Infectious Diseases Clinic [...] column spanning plate s/p open reduction and director internal audit al fixation, right midfoot fracture Dislocation associated [...] COL/ML) IN 18-24HR [place] [address] Interim History obtained 08/10/2012: Jaron presents to [...] a nd follow-up planning. Hillary Harmon PA-C [facility] Department of Infectious Diseases Outpatient IV Antibiotic Therapy Clinic (OPAT) [phone] Pager ID: [phone] [facility] Mail Code [address] [place] [address] documented in this encounter Plan of Treatment [...]
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
--- OUTSIDE RECORDS SUMMARY | ~2019-07-17 | XMS | Encounter Summary ---
Demographics + + + | Address | [address] | | | [place] [address] | + + + | Home Phone | | + + + | Preferred Language | Unknown | + + + | Marital Status | | + + + | Restoration Affiliation | NRP | + + + [...] Team Providers + +------+ + | Care Avionics Test Technician Name | Role | Phone | [...] [address]ilion | | | | | | [place], [place] | | | | | | [address] | | | | | | [phone] | | | +--------+ + + + [...]
--- OUTSIDE RECORDS SUMMARY | ~2019-07-17 | XMS | Encounter Summary ---
Demographics + + + | Address | [address] | | | [place] [address] | + + + | Home Phone | | + + + | Preferred Language | Unknown | + + + | Marital Status | | + + + | Alevism Affiliation | NRP | + + + [...] Team Providers + +------+ + | Care Hooker On Name | Role | Phone | + [...] + + + + | 07/27/ | Exercise Specialist | Infectious | Hillary Harmon | | | 2011 | | [facility] at [facility] | [place] | | | | | Floor [address] | | | | | | [address] | | | | | | Mailcode: L4Gordo | | | | | | Physician's Christina | | | | | | [place], [place] | | | | | | [address] | | | | | | [phone] | | | +--------+ + + + [...]
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
--- OUTSIDE RECORDS SUMMARY | ~2019-07-17 | XMS | Encounter Summary ---
Demographics + + + | Address | [address] | | | [place] [address] | + + + | Home Phone | | + + + | Preferred Language | Unknown | + + + | Marital Status | | + + + | Mu-Ism Affiliation | NRP | + + + [...] Team Providers + +------+ + | Care Quiller Hand Name | Role | Phone | [...] | 2012 | Event | [address] [facility] | [address] [facility] | | | | | Rd [facility] | Park [facility], | | | | | [facility] | [place] [address] | | | | | Desk Located on the | [phone] | | | | | 9th floor | | | | | | [place], [place] | | | | | | [address] | | | +--------+ + + + [...]
--- OUTSIDE RECORDS SUMMARY | ~2019-07-17 | XMS | Encounter Summary ---
Demographics + + + | Address | [address] | | | [place] [address] | + + + | Home Phone | | + + + | Preferred Language | Unknown | + + + | Marital Status | | + + + | Faith Affiliation | NRP | + + + [...] Team Providers + +------+ + | Care Plywood Stock Grader Name | Role | Phone | [...] | | | | | | [place], [place] | | | | | | [address] | | | | | | [phone] | | | +--------+ + + + [...]
--- OUTSIDE RECORDS SUMMARY | ~2019-07-17 | XMS | Encounter Summary ---
Demographics + + + | Address | [address] | | | [place] [address] | + + + | Home Phone [...] + + | Author | [facility] | + + + | Organization | [facility] | + + + | Address | Unknown | + + + | Phone | Unavailable | + + + Support + + +---------+ + | Name | Relationship | Address | Phone | + + +---------+ + | Soledad Muñiz | ECON | , [place] | | + + +---------+ + Care Team Providers + +------+ + | Care Press Operator Carbon Products Name | Role | Phone | + [...] + + + + | 08/31/ | Anthropology Faculty Member | Infectious | Hillary Hramon | | | 2012 | | [facility] | [place] | | | | | Floor [address] | | | | | | [address] | | | | | | Mailcode: L4Gordo | | | | | | Physician's Christina | | | | | | [place], [place] | | | | | | [address] | | | | | | [phone] | | | +--------+ + + + [...]
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
[~2019-07-17 17:43] MED LIST changes: +ESCITALOPRAM OX20 MG PO; +LISINOPRIL-HCT1 EAC2 PO
[2019-07-17] MEDS ORDERED: NORCO 5-325 TA1 EACH PO (20:01)
== END 2019-07-17 20:25 | disposition home or self-care (01) ==
LOC: ED 17:43 → ER 17:46 → ED 17:46
DX: S82.831A Other fracture of upper and lower end of right fibula, initial encounter for closed fracture (principal); S20.211A Contusion of right front wall of thorax, initial encounter; V03.90XA Pedestrian on foot injured in collision with car, pick-up truck or van, unspecified whether traffic or nontraffic accident, initial encounter; I10 Essential (primary) hypertension; Z88.7 Allergy status to serum and vaccine; Z79.899 Other long term (current) drug therapy
CPT/HCPCS: 71101; 73610; 80053; 81001; 85025; 96374; 99283-25; J3010